=== PATIENT | male | born 1995 | race Caucasian/White ===

== ENCOUNTER 2018-01-02 05:55 | Emergency (ER) | payer OTHER, SELFPAY ==
[2018-01-02 05:57] VITALS: BP 150/80; PULSE 66; RESP 16; TEMP 36.6; O2SAT 100
--- NOTE | 2018-01-02 06:24 | ED.VIS.GEN ---
History of Present Illness Chief Complaint: Laceration Informant: Patient Onset: Hours - 1 Context: Sudden Onset - Work related Timing: Continuous Quality: Sore Location: Left wrist Current Severity: Mild Maximum Severity: Mild Worsened by: Nothing Relieved by: Nothing Associated Symptoms: None Narrative: States he was putting the lid on a kiln at work, it broke and a piece of it came down and cut him in the left wrist. Right-hand dominant. Last tetanus unknown, he thinks more than 10 years. Past Medical History - Allergies and Home Meds Allergies/Adverse Reactions: Allergies No Known Allergies Allergy (Verified 01/02/18 06:07) Past Medical History: None Smoking Status: Never smoker Drugs: None Review of Systems All systems negative except as indicated Musculoskeletal: Reports: Extremity Pain Skin: Reports: Wounds Neurological: Denies: Headache, Weakness, Parasthesia, Numbness Physical Exam Vital Signs/Narrative: Vital Signs Temp Pulse Resp BP Pulse Ox 01/02/18 05:57 97.8 F 66 16 150/80 H 100 Inital Vital Signs reviewed: Yes General: Well nourished, Well developed, - - nad Head: Normocephalic, Atraumatic Extremities: Nontender, No edema, - - Full range of motion left wrist, all finger joints including FDS, FDP of all digits Skin: Normal color, Trauma - 3 cm full-thickness laceration vulvar left wrist. No tendons seen. Linear and clean-appearing. Neurological: Alert, Oriented x3, Cranial nerves II-XII grossly intact, Normal Strength, Normal Sensation, Normal Gait Psychological: Normal affect Diagnostic/Tx/Re-eval - Medical Decision Making Sutured w/o difficulty. Tetanus updated w/ Adacel. Procedures - Lacerations left forearm Length: 3 cm Depth: Sub Q Shape: Linear Prep: Sterile Conditions, Chlorhexadine Laceration repair: Lidocaine - 3cc, 1% plain, Local, Skin sutures Number of Sutures/Maureen: 3 Suture Information: Ethilon, Horizontal, Mattress, 4-0 ED Disposition - Plan for ED Patient: Disposition: Home or Assisted Living Chief Complaint: Laceration Diagnosis: Laceration of left forearm Instructions: ED Laceration All Referrals: [facility]YSICIANS] - (7-10 days for suture removal)
[2018-01-02] MEDS: Diphth,Pertuss(Acell),Tet Vac 0.5 ML Vial IM (06:37)
== END 2018-01-02 07:48 | disposition home or self-care (01) ==
PROVIDERS: Emergency Provider Emergency Medicine
DX: S61.512A Laceration without foreign body of left wrist, initial encounter (principal); W26.8XXA Contact with other sharp object(s), not elsewhere classified, initial encounter; Y93.9 Activity, unspecified; Y92.9 Unspecified place or not applicable
CPT/HCPCS: 12002; 90471; 90715; 99282

== ENCOUNTER 2019-06-01 01:47 | Inpatient (IN) | payer MEDICAID, SELFPAY ==
[2019-06-01] VITALS (8 sets, daily range): BP systolic 110–155; BP diastolic 66–86; PULSE 64–111; RESP 14–68; TEMP 36.4–38.1; O2SAT 88–100; BMI 19.3; BMI 20.2
--- NOTE | 2019-06-01 02:02 | US_ITS ---
Scrotal ultrasound. CLINICAL HISTORY: Pain and swelling. PROCEDURE: Multiple images are presented. FINDINGS: RIGHT HEMISCROTUM: The testis is normal in size and echotexture. It measures 5.5 x 3.1 x 3.0 cm. It demonstrates normal vascular flow. The right epididymis is normal and measures 1.0 x 1.6 x 1.2 cm. And also demonstrates normal vascularity but has a small 9 x 8 x 10 mm epididymal cyst. There is no right-sided varicocele or hydrocele. LEFT HEMISCROTUM: The testis is normal in size and echotexture. It measures 5.8 x 4.7 x 3.7 cm. It shows normal vascularity. The epididymis is enlarged and shows increased vascularity. A measures 3.6 x 3.2 x 3.4 cm. There is a small hydrocele formation but no varicocele. IMPRESSION: A left-sided epididymitis. Electronically Signed: Kevin Brand MD at 5:19 EST Tel , Service support , US/Testicular with Arterial Flow
--- NOTE | 2019-06-01 02:02 | ED.VIS.GEN ---
History of Present Illness Chief Complaint: Male Pain/Injury Informant: Patient Narrative: Patient stated for the last 48 hours has had left testicular pain and swelling. He had this remotely a year ago. It went away on its own. He was seen and evaluated at that time. He did not get a ultrasound. He was given an unknown pill at home to take. He is been using Motrin for this pain. Denies any pain in the other testicle. He has never had sex before. No history of STD. Current severity is moderate. Denies any urinary symptoms. Denies any other medical problems. Past Medical History - Allergies and Home Meds Allergies/Adverse Reactions: Allergies No Known Allergies Allergy (Verified 01/02/18 06:07) Primary Care Physician: [facility],Out of [NON-STAFF] - Prior records reviewed: Yes Past Medical History: None Surgical History: no surgical history Lives: With Family Smoking Status: Never smoker Alcohol: None Drugs: None Review of Systems General: Denies: Chills, Fever, Sweats Eyes: Denies: Visual changes - bilaterally, Diplopia ENT: Denies: Rhinorrhea, Sore throat Cardiovascular: Denies: Chest pain, Palpitations Respiratory: Denies: Dyspnea, Cough, Dyspnea on exertion Gastrointestinal: Denies: Abdominal pain, Nausea, Vomiting, Diarrhea, Melena, Hematochezia Genitourinary: Reports: - - Left testicle pain and swelling. Denies: Dysuria, Hematuria, Frequency Musculoskeletal: Denies: Back pain, Extremity Pain Skin: Denies: Rash, Wounds Neurological: Denies: Headache, Weakness, Numbness Physical Exam Vital Signs/Narrative: Vital Signs Temp Pulse Resp BP 06/01/19 01:48 99.3 F H 64 18 154/83 H General: Well nourished, Well developed, No Acute Distress Head: Normocephalic, Atraumatic Eyes: Perrl, EOMI ENT: Moist mucous membranes, No rhinorrhea Neck: Supple, Nontender Cardiovascular: Regular rate, Regular rhythm, No murmurs Respiratory: No distress, CTA bilaterally, Chest nontender Abdomen: Soft, Nontender, Nondistended, Normal bowel sounds : - - Right testicle and scrotum normal. Penis normal. Left testicle is significantly enlarged. It is the size of a baseball. Significant tenderness to moving the testicle. There is no evidence of infection. No hernia. Normal lie of the testicle. It is not high riding. Back: Nontender, Normal Inspection Extremities: Nontender, No edema Skin: Normal color, No rash Neurological: Alert, Oriented x3, Cranial nerves II-XII grossly intact, Normal Strength, Normal Sensation Psychological: Normal affect, Normal Mood Diagnostic/Tx/Re-eval - Medical Decision Making Patient given IV morphine. Lab work obtained. Stat testicular ultrasound obtained. Lab work shows a leukocytosis of 11.6. Renal function unremarkable. Urinalysis shows no bacteria in his urine. Ultrasound shows a left-sided epididymitis. Normal flow noted. Patient had multiple episodes of nausea and vomiting. Given Zofran and Phenergan. Given Dilaudid also for intractable pain. Patient is adamant he is never had sex. I did send a gonorrhea and chlamydia test just in case. Patient will be given IV antibiotics. We will choose ceftriaxone and doxycycline to cover for gonorrhea and chlamydia as well as E. coli and other urinary sources due to his intractable nausea and vomiting I feel he will need to be admitted. Discussed with the hospitalist ED Disposition - Plan for ED Patient: Disposition: Acute Care Hospital [facility] Diagnosis: Left epididymitis, Intractable nausea and vomiting
[2019-06-01] MEDS: Morphine 4 MG/ML Syringe IV ×2 (02:16→03:12)
[2019-06-01 02:23] LABS: Absolute Lymphocyte Count 0.43 X10^3/uL (0.83-4.51); Absolute Neutrophil Count 10.8 X10^3/uL (2.0-7.7); Basophil# 0.03 X10^3/uL; Basophil% 0.3 % (0-1); Eosinophil# 0.05 X10^3/uL; Eosinophils% 0.4 % (0-5); Hematocrit 41.3 % (40-54); Hemoglobin 14.3 g/dL (13.0-16.5); Lymphocyte # 0.43 X10^3/ul (4.0); Lymphocyte % 3.7 % (19-41); Mean Corp Hgb Conc 34.6 g/dL (32-36); Mean Corpuscular Hgb 28.3 pg (27.0-32.0); Mean Corpuscular Volume 81.8 fL (80-94); Mean Platelet Vol. 11.1 fl (6.2-12.0); Monocyte# 0.29 X10^3/uL; Monocyte% 2.5 % (0-10); NRBC Flagged by Analyzer 0 % (0-5); Neutrophil % 92.8 % (47-70); POSITIVE DIFFERENTIAL YES; Platelet Count 179 K/mm3 (150-450); RBC Distribution Width CV 12.2 % (11.6-14.6); RBC Distribution Width SD 36.3 fl (35.1-43.9); Red Blood Count 5.05 M/mm3 (4.6-6.2); White Blood Count 11.6 K/mm3 (4.4-11.0)
[2019-06-01 02:36] LABS: Differential Indicated SCAN CRITERIA MET
[2019-06-01 02:44] LABS: Anion Gap 6 (5-15); BUN 10 mg/dL (7-18); BUN/Creat Ratio 11.2 RATIO (10-20); Calcium,Total 8.9 mg/dL (8.5-10.1); Chloride 108 mmol/L (98-107); Creatinine, Serum 0.89 mg/dL (0.70-1.30); EST Glomerular Filtration Rate 110 mL/min (>60); Est Glom Filt Rate - Afr Amer 134 mL/min (>60); Estimated Creatinine Clearance 134.14 ml/min; Glucose 134 mg/dL (74-106); Potassium 3.6 mmol/L (3.5-5.1); Sodium Level 138 mmol/L (136-145)
[2019-06-01 02:53] LABS: Differential Comment SCANNED
[2019-06-01] MEDS: 0.9% Normal Saline 1,000 ML 1000 ML IV (03:12)
[2019-06-01] MEDS: HYDROmorphone 1 MG/ML Syringe IV ×4 (04:11→22:02)
[2019-06-01] MEDS: Ondansetron 4 MG/2 ML Vial IV ×3 (04:11→12:27)
[2019-06-01] MEDS: 0.9% Normal Saline 1,000 ML 999 ML IV (04:25)
[2019-06-01 04:29] LABS: Bacteria 0 SEEN /hpf (None Seen); Mucous, Urine 0 SEEN /hpf (<or=2+); Red Blood Cells-Urine 0 SEEN /hpf (0-5); Squamous Epithelial Cells - UA 0 SEEN /hpf (0-5)
[2019-06-01 04:39] LABS: Color, Urine Yellow (Yellow); Glucose, Dipstick Normal (Normal); Leukocyte Esterase-Dipstick 25 /ul (Negative); Nitrite-Dipstick Negative (Negative); Occult Blood-Urine Negative /ul (Negative); Protein-Dipstick 30 mg/dl (Negative); Urine Bilirubin Dipstick Negative (Negative); Urine Clarity Sl. Cloudy (Clear); Urine Urobilinogen 4 mg/dl (Normal)
[2019-06-01 04:46] LABS: Ketone-Dipstick 150 mg/dl (Negative)
[2019-06-01 04:48] LABS: Amorphous Sediment 1+; White Blood Cells 0-5 SEEN /hpf (0-5)
[2019-06-01] MEDS: HYDROmorphone 0.5 MG/0.5 ML SYRINGE IV (05:14)
[2019-06-01] MEDS: proMETHazine 25 MG/ML Syringe 6.25 MG IV (05:30)
--- NOTE | 2019-06-01 05:35 | HP.PCM_ITS ---
Problem List (1) Sepsis Status: Acute Qualifiers: Sepsis type: sepsis due to unspecified organism Sepsis acute organ dysfunction status: unspecified Qualified Code(s): A41.9 - Sepsis, unspecified organism (2) Intractable pain Status: Acute (3) Intractable nausea and vomiting Status: Acute (4) Left epididymitis Status: Acute History of Present Illness Date of Admission: 06/01/19 Chief Complaint: Testicular pain The patient is a 23 y/o M w/ no marked PMHx who presents to the [facility] ED on 06/01/19 with history of progressively worsening severe 10 out of 10 left testicular pain, edema starting evening with onset of fevers and chills in addition to poor appetite and eventual nausea and intractable emesis prompting ED presentation. Patient in the emergency room notes this is happened once prior remotely and that he was treated outpatient with oral antibiotics but did not recall the specific ones. He notes the pain is worse with any movement or any palpation of the testicle. He denies having ever had any sexual intercourse to both the ED physician and hospitalist physician. Work-up in the ED included T 99.3, heart rate 111, BP 155/83, respiratory rate 22, 100% on room air but did decrease to 88% on room air following narcotics with improvement to 99% on 3 L nasal cannula, CBC with WBC 11.6, hemoglobin 14.3, platelet 179 with left shift, BMP with chloride 108, glucose 134 otherwise not marked appearing, UA cloudy, specific gravity 1.010, protein 30, ketones 150, negative nitrite, leukocyte esterase 25, WBC 0-5 with no urine bacteria, pending chlamydia and gonorrhea PCR, testicular ultrasound with findings concerning for left-sided epididymitis. In the ED patient ministered Rocephin, doxycycline following discussion with ED physician and prior to this several series of Dilaudid, morphine as well as Zofran and Phenergan secondary to intractable pain and ongoing nausea. Past Medical History Allergies No Known Allergies Allergy (Verified 01/02/18 06:07) Home Medications: Ambulatory Orders Medication Instructions Recorded NK 06/01/19 Surgical History: - - Left lower extremity surgery with hardware. Psychiatric History: No pertinent psych hx Lives: Alone Smoking Status: Never smoker Alcohol: None Drugs: None - *Family History Maternal History Items: - - Patient denies any market maternal family history including heart disease, diabetes, cancer. Paternal History Items: Hypertension Review of Systems Constitutional: Reports: Anorexia, Chills, Fever, Malaise, Weakness, Fatigue. Denies: Weight Change HEENT: Denies: Head Aches, Sinus Congestion, Sinus Drainage Cardiovascular: Denies: Chest Pain, Palpitations Respiratory: Denies: Cough, Shortness of breath at rest, Sputum production Gastrointestinal: Reports: Nausea, Vomiting. Denies: Abdominal Pain Genitourinary: Reports: - - Scrotal pain, edema.. Denies: Dysuria Musculoskeletal: Denies: Joint Pain, Joint Tenderness Skin: Denies: Rash, Wounds Neurological: Denies: Numbness, Tingling, Focal weakness Psychiatric: Denies: Anxiety, Depression, Homicidal Ideations, Suicidal Ideations Hematologic/ Lymphatic: Denies: Easy Bruising, Easy Bleeding VTE Information - Inpt Only VTE Present on Admission: No VTE Mechan Device Prophylaxis: None VTE Pharm Prophylaxis ordered?: No Reason prophylaxis not ordered:: Treatment Not Indicated Patient Problems: Active and Suspected Problems Left epididymitis (Acute) Intractable nausea and vomiting (Acute) Sepsis (Acute) Intractable pain (Acute) Subjective: Laying in the ED bed, uncomfortable appearing, fatigue, recent notable narcotic administration. Objective: Physical Examination: General: awakens stimuli but very fatigued, intermittently alert, oriented x 3 and cooperative, seated upright in the ED bed, fatigued appearing, pain mildly improved but discomfort with any palpation of the region. Skin: normal color, turgor, no icterus, cyanosis. HEENT: AT/NC, EOMI, PERRLA, dry MM, no carotid bruits or JVD noted. Lungs: CTA bilaterally, moderate effort, moderate decrease BL bases, no rales, ronchi or wheezing. Heart: Mildly tachycardic with regular rhythm; no gallop, rub audible. Abdomen: soft, thin habitus, NTTP, ND, normal BS, no HSM. : Notable scrotal edema, no evidence of erythema but left testicle more firm and edematous to palpation, tender to palpation. Extremities: no cyanosis, clubbing, or edema. Neurological: awakens stimuli but very fatigued, intermittently alert, oriented x 3 and cooperative; cognitive function decreased given sedative recent regimen, not baseline intact; pupils equally reactive to light and accomodation; cranial nerves II-XII grossly normal, moving all 4 extremities, no focal deficits, strength severely global decrease secondary to acute presentation. Psychiatric: affect appears fatigued, no acute evidence of depressive or anxiety feelings. - Physical Exam Vitals/I&O's: Vital Signs Temp Pulse Resp BP Pulse Ox 99.3 F H 111 H 68 H 155/86 H 99 06/01/19 01:48 06/01/19 04:00 06/01/19 05:21 06/01/19 04:00 06/01/19 05:21 Oxygen Flow Rate (L/min) 3 Oxygen Delivery Method Nasal Cannula Weight: 163 lb 5.8 oz Body Mass Index (BMI) 19.3 Intake and Output for Last 24 Hours 05/30/19 05/31/19 06/01/19 23:59 23:59 23:59 Intake Total 1000 / 1000 Balance 1000 / 1000 Laboratory Results 06/01/19 02:15: WBC 11.6 H, RBC 5.05, Hgb 14.3, Hct 41.3, MCV 81.8, MCH 28.3, MCHC 34.6, RDW Std Deviation 36.3, RDW Coeff of Kenji 12.2, Plt Count 179, MPV 11.1, Immature Gran % (Auto) 0.300, Neut % (Auto) 92.8 H, Lymph % (Auto) 3.7 L, Charles % (Auto) 2.5, Eos % (Auto) 0.4, Baso % (Auto) 0.3, Absolute Neuts (auto) 10.8 H, Absolute Lymphs (auto) 0.43 L, Nucleated RBC % 0, Differential Comment SCANNED 06/01/19 02:15: Sodium 138, Potassium 3.6, Chloride 108 H, Carbon Dioxide 24.0, Anion Gap 6, BUN 10, Creatinine 0.89, Estim Creat Clear Calc 134.14, Est GFR (MDRD) Af Amer 134, Est GFR (MDRD) Non-Af 110, BUN/Creatinine Ratio 11.2, Glucose 134 H, Calcium 8.9 06/01/19 04:20: Urine Color Yellow, Urine Clarity Sl. Cloudy, Urine pH 7.0, Ur Specific [place] 1.010, Urine Protein 30 H, Urine Glucose (UA) Normal, Urine Ketones 150 H, Urine Occult Blood Negative, Urine Nitrite Negative, Urine Bilirubin Negative, Urine Urobilinogen 4 H, Ur Leukocyte Esterase 25 H, Urine RBC 0 SEEN, Urine WBC 0-5 SEEN, Ur Squamous Epith Cells 0 SEEN, Amorphous Sediment 1+, Urine Bacteria 0 SEEN, Urine Mucus 0 SEEN 06/01/19 04:20: Chlam trachomat DNA PCR Pending, N.gonorrhoeae DNA (PCR) Pending Current Medications Ceftriaxone Sodium (Rocephin) 1 gm in 50 mls @ 100 mls/hr IV X1 ONE Stop: 06/01/19 06:00 Doxycycline Hyclate 100 mg/ (Dextrose) 260 mls @ 250 mls/hr IV X1 ONE Stop: 06/01/19 06:33 Assessment/Plan All Active Problems Left epididymitis (Acute) Intractable nausea and vomiting (Acute) Sepsis (Acute) Intractable pain (Acute) The patient is a 23 y/o M w/ no marked PMHx who presents to the [facility] ED on 06/01/19 with history of progressively worsening severe 10 out of 10 left testicular pain, edema starting evening with onset of fevers and chills in addition to poor appetite and eventual nausea and intractable emesis prompting ED presentation. 1. Acute Sepsis secondary to Acute left-sided epididymitis with intractable pain: Low-grade temperature upon presentation with tachycardia, elevated respiratory rate, mild WBC elevation with left shift noted. We will admit to medical surgical floor, maintain on IV Rocephin and doxycycline pending gonorrhea and Chlamydia testing as well as urine culture although UA not market appearing, will continue hydration, allow clears with advance diet as tolerated pending improvement of nausea, continue oral and IV narcotic pain regimen as well as scheduled IV Toradol x5 doses to assist with inflammation, elevate scrotum continuously, administer ice to the region. If pain continues to be intractable may necessitate transition to [facility]TEGR[facility] [employer]. 2. DVT prophylaxis: Low risk, ambulation once clinically improving. Code Visit Inpatient E&M: [id number] Init Hosp L2
[2019-06-01] MEDS: Ceftriaxone 1 GM/50 ML BAG IV (05:48)
--- NOTE | 2019-06-01 05:53 | ED.RN ---
TESTICLES ELEVATED WITH A TOWEL AND A ICEPACK.
--- NOTE | 2019-06-01 05:54 | ED.RN ---
ROCEPHIN STARTED IN THE ER, VIBRAMYCIN NOT STARTED SENT TO THE FLOOR WITH THE PT.
[2019-06-01 06:07] LABS: Chlamydia Trachomatis by PCR Negative (Negative); Neisserai gonorrhoeae by PCR Negative (Negative); Probe Check PASS; Sample Adequacy Control PASS; Specimen Processing Control PASS
[2019-06-01] MEDS: Ketorolac 30 MG/ML Syringe IV ×3 (06:45→21:56)
[2019-06-01] MEDS: 0.9% Normal Saline 1,000 ML 125 ML IV ×2 (08:29→16:16)
[2019-06-01] MEDS: 0.9% Saline Lock 10 ML Syringe IV ×4 (08:29→14:40)
[2019-06-01] MEDS: oxyCODONE 5 MG Tablet 10 MG PO ×3 (12:17→20:00)
--- NOTE | 2019-06-01 13:22 | NURSING ---
prn oxycodone given out of pain range per verbal orders to see if pain will be controlled w/oral meds
--- NOTE | 2019-06-01 16:59 | PCM.HOSP.N ---
Hospitalist Note Patient was seen and examined briefly today, he is continuing to complain of left testicular discomfort and has requiring narcotics for pain. I stop the patient's Rocephin-I do not think is necessary to continue Rocephin past 1 dose. I have left the patient on IV Vibramycin. I will reevaluate the patient tomorrow.
[2019-06-01] MEDS: Acetaminophen 325 MG Tablet 650 MG PO (22:02)
--- NOTE | 2019-06-01 22:24 | US_ITS ---
STUDY: SCROTUM ULTRASOUND REASON FOR EXAM: Male, 23 years old. LEFT TESTICULAR AND GROIN PAIN, LAST NIGHT PAIN WENT TO SPINE TECHNIQUE: Ultrasound evaluation of the scrotum was performed with color Doppler and static villar-scale imaging. COMPARISON: None. FINDINGS: RIGHT TESTICLE INTRATESTICULAR: There is a normal size of the right testicle. The right testicle measures 4.9 x 3.3 x 3.6 cm. There is a homogenous echotexture. There is normal arterial and normal venous vascularity. There is no demonstrated right testicular mass or cyst. EXTRATESTICULAR: The epididymis is normal in size. The epididymis head measures 1.5 cm. There is normal vascularity of the epididymis. There is 9 mm cystic structure. There is no demonstrated hydrocele. There is no demonstrated varicocele. There is no demonstrated extratesticular mass or cyst. LEFT TESTICLE INTRATESTICULAR: There is a normal size of the left testicle. The left testicle measures 5.8 x 3.8 x 3.5 cm. There is a heterogeneous echotexture. There is decreased arterial and decreased venous vascularity. There is no demonstrated left testicular mass or cyst. EXTRATESTICULAR: The epididymis is normal in size. The epididymis head measures 1.1 cm. There is increased (hyperemic) vascularity of the epididymis. There is no demonstrated epididymal cystic structure. There is no demonstrated hydrocele. There is no demonstrated varicocele. There is no demonstrated extratesticular mass or cyst. There is skin thickening in the scrotal wall suggesting edema US/Testicular with Arterial Flow IMPRESSION: There is heterogeneous echotexture of the left testicle may represent orchitis. There is hyperemia of the left epididymis suggesting epididymitis. There is skin thickening in the scrotal wall suggesting edema. Electronically Signed: Toshia Solares, at 2:49 EST Tel , Service support ,
[2019-06-02] VITALS (9 sets, daily range): BP systolic 99–126; BP diastolic 51–95; PULSE 91–125; RESP 16–18; TEMP 36.4–37.8; O2SAT 95–100; BMI 20.1
--- NOTE | 2019-06-02 00:41 | PCM.HOSP.N ---
Hospitalist Note Patient with ongoing pain to the L scrotal region with increased edema, feeling more firm than upon initial presentation. Given these concerns requested STAT repeat testicular US. Reviewed with angelique, pending radiology review with concern for L testicular torsion. Will immediately contact Dr. Posey, make patient NPO status, maintained already on IVFs.
--- NOTE | 2019-06-02 01:17 | CON.PCM_ITS ---
Reason for Consult Date of Consultation: 06/02/19 Reason for Consultation: Possible left testicular torsion History of Present Illness: The patient is a 23 year old male who started having more pain in the scrotum and left testicle about he said that suddenly on Monday the pain hit him really hard and he presented to the hospital. On admission ultrasound of the testicles was done and he had normal bilateral flow was read as epididymitis in the left side and the patient was admitted for pain management and antibiotic treatments. During the course of his stay more progressive swelling has developed repeat ultrasound was done and now he does have normal flow in the rig ht testicle but in the left testicle on ultrasound the testicle itself appears heterogeneous and no flow is apparent within the left testicle I reviewed the Doppler images myself and there is certainly a change between the original ultrasound and this ultrasound that does not demonstrate flow to the left testicle concerning for left torsion. On exam the patient is extremely swollen he is got edema in the scrotum got severe edema in the left side impossible to do an examination that determines whether the patient has torsion or not my only option at this point is to do immediate exploration I have called the surgical team in order to perform with scrotal exploration for possible torsion. Past Medical History Allergies No Known Allergies Allergy (Verified 01/02/18 06:07) Home Medications: Ambulatory Orders Medication Instructions Recorded NK 06/01/19 Surgical History: - - Left lower extremity surgery with hardware. Psychiatric History: No pertinent psych hx Lives: Alone Smoking Status: Never smoker Alcohol: None Drugs: None - *Family History Maternal History Items: - - Patient denies any market maternal family history including heart disease, diabetes, cancer. Paternal History Items: Hypertension Review of Systems Constitutional: Denies: Chills, Fever, Weight Change HEENT: Denies: Head Aches, Sinus Congestion, Sinus Drainage Cardiovascular: Denies: Chest Pain, Palpitations Respiratory: Denies: Cough, Shortness of breath at rest, Sputum production Gastrointestinal: Denies: Abdominal Pain, Nausea, Vomiting Genitourinary: Denies: Dysuria Musculoskeletal: Denies: Joint Pain, Joint Tenderness Skin: Denies: Rash, Wounds Neurological: Denies: Numbness, Tingling, Focal weakness Psychiatric: Denies: Anxiety, Depression, Homicidal Ideations, Suicidal Ideations Hematologic/ Lymphatic: Denies: Easy Bruising, Easy Bleeding Physical Exam - Physical Exam Vital Signs Temp 100.5 F H 06/01/19 20:08 Pulse 103 H 06/01/19 20:08 Resp 18 06/01/19 20:08 BP 113/66 06/01/19 20:08 Pulse Ox 99 06/01/19 20:08 Intake & Output 05/31/19 06/01/19 06/02/19 23:59 23:59 23:59 Intake Total 4549.17 / 4549.17 Output Total 500 / 500 250 / 250 Balance 4049.17 / 4049.17 -250 / -250 Weight: 71.3 kg Intake: Oral 300 / 300 Intake, IV Amount 4249.17 / 4249.17 0.9% Normal Saline 1,000 ML @ 1000 / 1000 1000 mls/hr IV .Q1H [facility] Rx#: [id number] 0.9% Normal Saline 1,000 ML @ 1679.17 / 1679.17 125 mls/hr IV .Q8H [facility] Rx#: [id number] 0.9% Normal Saline 1,000 ML @ 1000 / 1000 999 mls/hr IV .Q1H1M [facility] Rx#: [id number] Rocephin 1 gm In 50 ml @ 100 50 / 50 mls/hr IV X1 [facility] Rx#:[id number] Vibramycin 100 MG In Dextrose 5 260 / 260 % 250 ML @ 250 mls/hr IV Q12 [facility] Rx#:[id number] Vibramycin 100 MG In Dextrose 5 260 / 260 % 250 ML @ 250 mls/hr IV X1 [facility] Rx#:[id number] Output: Urine 500 / 500 250 / 250 General: Alert, Oriented x3 HEENT: Atraumatic Oral: Moist Mucosa Neck: Supple Lungs: Clear to auscultation Cardiovascular: Regular rate, Regular Rhythm Abdomen: Soft Rectal: Exam deferred - Testicles are both very swollen lots of edema lots of soft tissue swelling firm hard scrotum. Laboratory Tests Past 24 Hrs 06/01/19 06/01/19 06/01/19 02:15 02:15 04:20 WBC 11.6 H RBC 5.05 Hgb 14.3 Hct 41.3 MCV 81.8 MCH 28.3 MCHC 34.6 RDW Std Deviation 36.3 RDW Coeff of Kenji 12.2 Plt Count 179 MPV 11.1 Immature Gran % (Auto) 0.300 Neut % (Auto) 92.8 H Lymph % (Auto) 3.7 L Izard % (Auto) 2.5 Eos % (Auto) 0.4 Baso % (Auto) 0.3 Absolute Neuts (auto) 10.8 H Absolute Lymphs (auto) 0.43 L Nucleated RBC % 0 Differential Comment SCANNED Sodium 138 Potassium 3.6 Chloride 108 H Carbon Dioxide 24.0 Anion Gap 6 BUN 10 Creatinine 0.89 Estim Creat Clear Calc 134.14 Est GFR (MDRD) Af Amer 134 Est GFR (MDRD) Non-Af 110 BUN/Creatinine Ratio 11.2 Glucose 134 H Calcium 8.9 Urine Color Yellow Urine Clarity Sl. Cloudy Urine pH 7.0 Ur Specific Ballantine 1.010 Urine Protein 30 H Urine Glucose (UA) Normal Urine Ketones 150 H Urine Occult Blood Negative Urine Nitrite Negative Urine Bilirubin Negative Urine Urobilinogen 4 H Ur Leukocyte Esterase 25 H Urine RBC 0 SEEN Urine WBC 0-5 SEEN Ur Squamous Epith Cells 0 SEEN Amorphous Sediment 1+ Urine Bacteria 0 SEEN Urine Mucus 0 SEEN Chlam trachomat DNA PCR N.gonorrhoeae DNA (PCR) 06/01/19 04:20 WBC RBC Hgb Hct MCV MCH MCHC RDW Std Deviation RDW Coeff of Kenji Plt Count MPV Immature Gran % (Auto) Neut % (Auto) Lymph % (Auto) Izard % (Auto) Eos % (Auto) Baso % (Auto) Absolute Neuts (auto) Absolute Lymphs (auto) Nucleated RBC % Differential Comment Sodium Potassium Chloride Carbon Dioxide Anion Gap BUN Creatinine Estim Creat Clear Calc Est GFR (MDRD) Af Amer Est GFR (MDRD) Non-Af BUN/Creatinine Ratio Glucose Calcium Urine Color Urine Clarity Urine pH Ur Specific Ballantine Urine Protein Urine Glucose (UA) Urine Ketones Urine Occult Blood Urine Nitrite Urine Bilirubin Urine Urobilinogen Ur Leukocyte Esterase Urine RBC Urine WBC Ur Squamous Epith Cells Amorphous Sediment Urine Bacteria Urine Mucus Chlam trachomat DNA PCR Negative N.gonorrhoeae DNA (PCR) Negative Assessment/Plan All Active Problems Left epididymitis (Acute) Intractable nausea and vomiting (Acute) Sepsis (Acute) Intractable pain (Acute) 23-year-old male who presented with what appeared to be left epididymitis was treated with antibiotics repeat ultrasound was done there is definitely a change in flow to the left testicle but now may be concerning for torsion prior ultrasound demonstrated normal flow to the left testicle. Patient can be taken to the operating room immediately the surgical team is already been called in and possible he may need to have the left testicle removed if found to be ne crotic or if torsion will do detorsion and stabilization of the testicles. Patient n.p.o. will go surgery now.
[2019-06-02] MEDS: 0.9% Normal Saline 1,000 ML 125 ML IV ×4 (01:34→19:22)
--- NOTE | 2019-06-02 02:00 | MISC_PTH ---
PATIENT: DAVID MOJICA LOC: MS3 U#:[id number] AGE/SX: 23/M [place] [facility] [place]: Dr. Lázaro De Leon DO : 1995 BED: 1 DIS: 06/04/2019 SPEC #: [id number] RECD: 06/03/19 09:20 STATUS: DESHAUN REKimberly #: [id number] DANNY: 06/02/19 02:[address]: Pelon Posey DEPT: SURGICAL PATHOLOGY RECD BY: James Kelley ENTERED: 06/03/19 13:15 SP TYPE: MISC OTHR DR: MD Dr. Lázaro Mike DO Dr. Juan Miguel Proano, MD No Primary Care Phys Tissues: Scrotum, NOS Procedures: Surgery Specimen Level IV Comments: @ Ordering doctor for SUIV edited from to @ by MAYI at 06/03/19 1524 @ Submitting doctor edited from to @ by RGOOD at 06/03/19 1524 HEADER OPERATION: Testicular torsion PRE-OP DIAGNOSIS: Left epididymitis; intractable nausea and vomiting; sepsis, intractable pain TISSUE SUBMITTED: Necrotic scrotum MICROSCOPIC DIAGNOSIS Necrotic scrotum: Testes, epididymis and paratesticular tissue with extensive acute inflammation, hemorrhage and abscess formation. MARTY:yash 06/05/19 MICROSCOPIC DESCRIPTION Slides are reviewed. GROSS DESCRIPTION The specimen consists of testes and attached membranes. The specimen measures 9 x 6 x 3.5 cm and weighs 85 gm. The testes measures 5.6 x 3.5 x 3 cm. Serial sections reveal homogenous cut surfaces without areas of cyst formation, obvious necrosis or hemorrhage. The vas deferens is grossly unremarkable. The soft tissue margin of resection is grossly unremarkable. Serial sections of the testes do not reveal a space-occupying lesion. The caput epididymis is identified; however, the caudate epididymis is not distinct. Mfts sections are submitted as follows: 1 - soft tissue margin of resection, 2 - testes, 3 - testes with adjacent uninvolved soft tissue, 4 - caput epididymis, 5-8 - testicular soft tissue. / AM:yash 06/04/19 TC:2 CPT: 47852
[2019-06-02] MEDS: Bupivacaine Mpf 0.5% 30 ML VIAL (03:00)
--- NOTE | 2019-06-02 03:07 | OP.PCM_ITS ---
Report of Operation Date of Procedure: 06/02/19 Pre-Operative Diagnosis: Suspected torsion of the left testicle left epidi dymitis severe Post-Operative Diagnosis: Thrombosis of the left testicle and left epididymitis severe Surgery/Procedure Performed:: Scrotal exploration left orchiectomy for thrombosed testicle and right orchiopexy Description of Surgical Findings:: 23-year-old male presented to the hospital about 24 hours ago with suspected severe epididymitis was started on broad-spectrum antibiotics while in the hospital stay despite broad-spectrum antibiotics his pain worsened original ultrasound demonstrated epididymitis with normal flow to both testicles follow- up ultrasound demonstrated no flow to the left testicle and suspected torsion. Because of this spoke to the patient regarding situation and exam he is got a very swollen testicle impossible to tell if he has torsion or not recommend a scrotal expiration and he understands possible I may have to remove the left testicle if it is found to be necrotic and we will also perform a right orchiopexy. 23-year-old male was taken back to the operating room at the smooth induction of general anesthesia he was placed supine on the table the scrotum was shaved prepped and draped in usual sterile fashion he had a very swollen edematous scrotum had a lot of redness and erythema on the left side of the scrotum a lot of swelling and edema and the entire scrotum itself. I infiltrated the midline raphae with Marcaine I then made an incision into the scrotal skin have very edematous scrotal skin dissected down immediately to the left testicle encountered a hydrocele opened up the hydrocele hydrocele popped out fluid and then very dense tough edematous tissue all the way around the testicle then delivered the testicle inspected the testicular cord there is no torsion along the cord but the testicle itself was completely blue and thrombosed the epididymis was engorged and the tail of the epididymis was all necrotic and with exudate and whitish puslike material cultures were done. There was no torsion of the testicle but appeared to be a thrombosis of the testicle secondary to the infection and it was not a viable looking testicle, and the testicle looked comp letely unhealthy necrotic and nonviable. I went to the right side open up the tunica albuginea in the right side he had a normal right testicle normal epididymis we performed an orchiopexy using 3 Ethibond which is permanent braided soft suture we the three-point fixation of the right testicle and then stitches testicle into the right hemiscrotum to prevent torsion of this testicle. I then went to the left side inspected again again this was a nonviable thrombosed necrotic testicle with exudate therefore I did this decision to proceed with an orchiectomy given that the testicle did not appear salvageable. And also given the past testicle there was no torsion just spontaneous thrombosis secondary most likely to the severe infection. Therefore I took the cord with hemostats in several small pieces and then the testicle was cut out there was thrombosis along the cord I then tied off each of the ligating each of the small vessels with silk stitches after the cord was ligated inspected the cord there was no sign of bleeding and irrigated out the left hemiscrotum obtain hemostasis in the incision line and then closed the first layer with 3-0 chromic running suture and then closed the second layer with imbricated 3-0 chromic continuous suture on the scrotal skin patient anesthetic was reversed taken back to PACU in good condition. Type of Anesthesia:: General - Admit VTE Documentation VTE Present on Admission: No VTE Mechan Device Prophylaxis: SCD's
[2019-06-02] MEDS: Ketorolac 30 MG/ML Syringe IV ×2 (06:04→14:18)
[2019-06-02 07:01] LABS: Hematocrit 34.8 % (40-54); Hemoglobin 11.4 g/dL (13.0-16.5); Mean Corp Hgb Conc 32.8 g/dL (32-36); Mean Corpuscular Hgb 27.7 pg (27.0-32.0); Mean Corpuscular Volume 84.5 fL (80-94); Mean Platelet Vol. 11.8 fl (6.2-12.0); POSITIVE COUNT YES; POSITIVE DIFFERENTIAL YES; POSITIVE MORPHOLOGY YES; Platelet Count 175 K/mm3 (150-450); RBC Distribution Width CV 13.2 % (11.6-14.6); RBC Distribution Width SD 40.6 fl (35.1-43.9); Red Blood Count 4.12 M/mm3 (4.6-6.2); White Blood Count 18.9 K/mm3 (4.4-11.0)
[2019-06-02 07:12] LABS: Anion Gap 7 (5-15); BUN 16 mg/dL (7-18); BUN/Creat Ratio 16.1 RATIO (10-20); Calcium,Total 7.6 mg/dL (8.5-10.1); Chloride 106 mmol/L (98-107); Creatinine, Serum 0.99 mg/dL (0.70-1.30); EST Glomerular Filtration Rate 98 mL/min (>60); Est Glom Filt Rate - Afr Amer 118 mL/min (>60); Estimated Creatinine Clearance 116.03 ml/min; Glucose 93 mg/dL (74-106); Sodium Level 137 mmol/L (136-145)
[2019-06-02 07:38] LABS: Differential Indicated MANUAL DIFF
[2019-06-02 07:54] LABS: Lymphocyte 1 % (19-41); Metamyelocyte 1 % (0-1); Monocyte 4 % (0-10); Neutrophil-Band 10 % (0-5); Neutrophil-Segmented 84 % (47-70); Platelet Estimate ADEQUATE (ADEQ); Red Cell Morphology NORM C+C NORMAL (NORM C&C); Total Cells Counted 100 (MANUAL DIFF)
[2019-06-02 07:56] LABS: Absolute Lymphocyte Count 0.19 X10^3/uL (0.83-4.51); Absolute Neutrophil Count 17.8 X10^3/uL (2.0-7.7)
[2019-06-02] MEDS: oxyCODONE 5 MG Tablet 10 MG PO ×2 (08:14→20:06)
[2019-06-02] MEDS: levoFLOXacin 750 MG Tablet PO (10:10)
--- NOTE | 2019-06-02 11:08 | CPS ---
incentive started by nursing
--- NOTE | 2019-06-02 17:40 | PN_ITS ---
Patient Problems: Active and Suspected Problems Left epididymitis (Acute) Intractable nausea and vomiting (Acute) Sepsis (Acute) Intractable pain (Acute) Subjective: Patient was seen and examined today, he required surgery earlier this morning for a left orchiectomy. Patient had a thrombosis and necrosis of the left testicle. I explained this to the patient today as well as his father who is in the room during the time of my examination. Patient's pain is much better today. - Physical Exam Vitals/I&O's: Vital Signs Temp Pulse Resp BP Pulse Ox 98.1 F 94 16 119/72 100 06/02/19 14:15 06/02/19 14:15 06/02/19 14:15 06/02/19 14:15 06/02/19 14:15 Oxygen Flow Rate (L/min) 2 Oxygen Delivery Method Room Air Weight: 71.3 kg Body Mass Index (BMI) 20.1 Intake and Output for Last 24 Hours 05/31/19 06/01/19 06/02/19 23:59 23:59 23:59 Intake Total 4549.17 / 4549.17 2905.83 / 2905.83 Output Total 500 / 500 600 / 600 Balance 4049.17 / 4049.17 2305.83 / 2305.83 General: Alert, Oriented x3, Cooperative, No apparent distress, Well developed HEENT: Atraumatic, PERRLA, EOMI, Normocephalic Oral: Moist Mucosa Neck: Supple, Trachea Midline, Thyroid Normal Size and Texture Lungs: Clear to auscultation, Normal air movement, No rhonchi, No wheeze, No rales Cardiovascular: Regular rate, Regular Rhythm, Normal S1, Normal S2, No murmurs, PMI Normal Abdomen: Bowel Sounds Present, Soft, Non Tender, Non-Distended Extremities: No clubbing, No cyanosis, No edema, Capillary Refill Less than 3 Seconds Skin: No rashes, No breakdown Musculoskeletal: No Tenderness to Palpation of Joints or Extremities Neurological: Cranial nerves II-XII grossly intact, Neuro grossly intact, Sensory exam intact to light touch and pain Psych/Mental Status: Normal Affect, Appropriate, Alert and oriented to time, place, person, mood and affect Microbiology Past 72 Hours 06/02/19 03:00 Wound Abcess - Other Gram Stain - Final 06/01/19 04:20 Urine, Clean Catch Urine Culture - Preliminary Culture exhibits no growth. Laboratory Results 06/02/19 05:14: WBC 18.9 H, RBC 4.12 L, Hgb 11.4 L, Hct 34.8 L, MCV 84.5, MCH 27.7, MCHC 32.8, RDW Std Deviation 40.6, RDW Coeff of Kenji 13.2, Plt Count 175, MPV 11.8, Neut % (Auto) Not Reportable, Absolute Neuts (auto) 17.8 H, Absolute Lymphs (auto) 0.19 L, Total Counted 100, Neutrophils % (Manual) 84 H, Band Neutrophils % 10 H, Lymphocytes % (Manual) 1 L, Monocytes % (Manual) 4, Metamyelocytes % 1, Diff Path Review September, Platelet Estimate ADEQUATE, RBC Morphology NORM C+C 06/02/19 05:14: Sodium 137, Potassium 4.0, Chloride 106, Carbon Dioxide 24.0, Anion Gap 7, BUN 16, Creatinine 0.99, Estim Creat Clear Calc 116.03, Est GFR (MDRD) Af Amer 118, Est GFR (MDRD) Non-Af 98, BUN/Creatinine Ratio 16.1, Glucose 93, Calcium 7.6 L Current Medications Acetaminophen (Tylenol) 650 mg PO Q4H PRN PRN PRN Reason: Pain Score 1-3/Temp > 100.7 F Last Admin: 06/01/19 22:02 Dose: 650 mg Documented by: Hydromorphone HCl (Dilaudid Inj) 1 mg IV Q4H PRN PRN PRN Reason: Pain Score 6-10/10 Last Admin: 06/01/19 22:02 Dose: 1 mg Documented by: Doxycycline Hyclate 100 mg/ (Dextrose) 260 mls @ 250 mls/hr IV Q12 [facility] Last Infusion: 06/02/19 11:13 Dose: Infused Documented by: Sodium Chloride () 1,000 mls @ 125 mls/hr IV .Q8H [facility] Last Infusion: 06/02/19 11:13 Dose: 125 mls/hr Documented by: Sodium Chloride () 250 mls @ 15 mls/hr IV .[id number] PRN PRN Reason: Saline Flush Sodium Chloride () 250 mls @ 15 mls/hr IV .[id number] PRN PRN Reason: Additional IVPB Infusion Levofloxacin (Levaquin Tablet) 750 mg PO DAILY@0600 [facility] Ondansetron HCl (Zofran) 4 mg IV Q8H PRN PRN PRN Reason: NAUSEA/VOMITING Last Admin: 06/01/19 12:27 Dose: 4 mg Documented by: Oxycodone HCl (Oxyir) 10 mg PO Q4H PRN PRN PRN Reason: Pain Score 4-5/10 Last Admin: 06/02/19 08:14 Dose: 10 mg Documented by: Sodium Chloride () 10 - 40 ml IV UD PRN PRN Reason: SALINE FLUSH Last Admin: 06/01/19 14:40 Dose: 10 ml Documented by: Medical Necessity - Tobacco Use Smoking Status: Never smoker Assessment/Plan All Active Problems Left epididymitis (Acute) Intractable nausea and vomiting (Acute) Sepsis (Acute) Intractable pain (Acute) #1 thrombosis of the left testicle and left epididymitis-status post left orchiectomy and right orchiopexy-patient appears more comfortable today, I will stop the patient's doxycycline, I placed the patient on oral Levaquin today. Patient will be reevaluated tomorrow for possible discharge home and follow-up w [facility] urology. Code Visit Inpatient E&M: 20841 Subs Hosp L2
[2019-06-02] MEDS: HYDROmorphone 1 MG/ML Syringe IV ×2 (17:46→22:26)
[2019-06-02] MEDS: Ondansetron 4 MG/2 ML Vial IV (17:46)
[2019-06-02] MEDS: proMETHazine 25 MG/ML Syringe 12.5 MG IV (22:21)
[2019-06-03] MEDS: 0.9% Normal Saline 1,000 ML 125 ML IV ×2 (02:13→09:56)
[2019-06-03 02:14] VITALS: BP 119/76; PULSE 84; RESP 16; TEMP 37.2; O2SAT 97
[2019-06-03] MEDS: Ondansetron 4 MG/2 ML Vial IV (05:53)
[2019-06-03] MEDS: levoFLOXacin 750 MG Tablet PO (06:48)
[2019-06-03] MEDS: Acetaminophen 325 MG Tablet 650 MG PO ×2 (06:48→20:05)
[2019-06-03 06:49] LABS: Absolute Neutrophil Count 17.9 X10^3/uL (2.0-7.7); Basophil# 0.05 X10^3/uL; Basophil% 0.3 % (0-1); Eosinophil# 0.04 X10^3/uL; Eosinophils% 0.2 % (0-5); Hematocrit 33.2 % (40-54); Hemoglobin 11.2 g/dL (13.0-16.5); Lymphocyte % 3.1 % (19-41); Mean Corp Hgb Conc 33.7 g/dL (32-36); Mean Corpuscular Hgb 28.5 pg (27.0-32.0); Mean Corpuscular Volume 84.5 fL (80-94); Mean Platelet Vol. 11.5 fl (6.2-12.0); Monocyte# 0.77 X10^3/uL; Monocyte% 3.9 % (0-10); NRBC Flagged by Analyzer 0 % (0-5); Neutrophil # 17.88 X10^3/uL (2.7-7.7); Neutrophil % 91.2 % (47-70); POSITIVE DIFFERENTIAL YES; POSITIVE MORPHOLOGY YES; Platelet Count 202 K/mm3 (150-450); RBC Distribution Width CV 12.9 % (11.6-14.6); RBC Distribution Width SD 39.7 fl (35.1-43.9); Red Blood Count 3.93 M/mm3 (4.6-6.2); White Blood Count 19.6 K/mm3 (4.4-11.0)
[2019-06-03 07:18] LABS: Differential Indicated SCAN CRITERIA MET
[2019-06-03 07:21] LABS: Differential Comment SCANNED
--- NOTE | 2019-06-03 07:32 | PCM.PROGNOTE ---
Patient Problems: Active and Suspected Problems Left epididymitis (Acute) Intractable nausea and vomiting (Acute) Sepsis (Acute) Intractable pain (Acute) Subjective: 23-year-old male who presented with severe left epididymoorchitis then developed severe pain on repeat ultrasound was found to have acute thrombosis of the left testicle was taken to surgery was found to have a necrotic nonviable testicle and required orchiectomy on the left side. He still healing from the procedure still says he has a lot of nausea has not been able to keep food down white count still elevated 19 cultures intraoperatively are still pending on examination the scrotum is reddened and edematous incision is clean and intact. He has been switched over to Levaquin from doxycycline. White count still elevated still not able to tolerate food. - Physical Exam Vitals/I&O's: Vital Signs Temp Pulse Resp BP Pulse Ox 99.0 F 84 16 119/76 97 06/03/19 02:14 06/03/19 02:14 06/03/19 02:14 06/03/19 02:14 06/03/19 02:14 Oxygen Flow Rate (L/min) 2 Oxygen Delivery Method Room Air Weight: 71.3 kg Body Mass Index (BMI) 20.1 Intake and Output for Last 24 Hours 06/01/19 06/02/19 06/03/19 23:59 23:59 23:59 Intake Total 4549.17 / 4549.17 4305.83 / 4305.83 856.25 / 856.25 Output Total 500 / 500 1200 / 1200 100 / 100 Balance 4049.17 / 4049.17 3105.83 / 3105.83 756.25 / 756.25 General: Alert, Oriented x3, Cooperative HEENT: Atraumatic, PERRLA, EOMI, Normocephalic Lungs: Normal air movement Abdomen: Soft, Non Tender Extremities: No clubbing, No cyanosis, No edema Psych/Mental Status: Normal Affect, Appropriate Comment: I examined nation of the scrotum the scrotum is swollen and edematous Microbiology Past 72 Hours 06/02/19 03:00 Wound Abcess - Other Gram Stain - Final 06/01/19 04:20 Urine, Clean Catch Urine Culture - Preliminary Culture exhibits no growth. Laboratory Results 06/02/19 05:14: WBC 18.9 H, RBC 4.12 L, Hgb 11.4 L, Hct 34.8 L, MCV 84.5, MCH 27.7, MCHC 32.8, RDW Std Deviation 40.6, RDW Coeff of Kenji 13.2, Plt Count 175, MPV 11.8, Neut % (Auto) Not Reportable, Absolute Neuts (auto) 17.8 H, Absolute Lymphs (auto) 0.19 L, Total Counted 100, Neutrophils % (Manual) 84 H, Band Neutrophils % 10 H, Lymphocytes % (Manual) 1 L, Monocytes % (Manual) 4, Metamyelocytes % 1, Diff Path Review September, Platelet Estimate ADEQUATE, RBC Morphology NORM C+C 06/03/19 06:08: WBC 19.6 H, RBC 3.93 L, Hgb 11.2 L, Hct 33.2 L, MCV 84.5, MCH 28.5, MCHC 33.7, RDW Std Deviation 39.7, RDW Coeff of Kenji 12.9, Plt Count 202, MPV 11.5, Immature Gran % (Auto) 1.300 H, Neut % (Auto) 91.2 H, Lymph % (Auto) 3.1 L, Baxter % (Auto) 3.9, Eos % (Auto) 0.2, Baso % (Auto) 0.3, Absolute Neuts (auto) 17.9 H, Absolute Lymphs (auto) 0.60 L, Nucleated RBC % 0, Differential Comment SCANNED Current Medications Acetaminophen (Tylenol) 650 mg PO Q4H PRN PRN PRN Reason: Pain Score 1-3/Temp > 100.7 F Last Admin: 06/03/19 06:48 Dose: 650 mg Documented by: Hydromorphone HCl (Dilaudid Inj) 0.5 mg IV Q4H PRN PRN PRN Reason: BREAKTHROUGH PAIN (>4/10) Sodium Chloride () 1,000 mls @ 125 mls/hr IV .Q8H [facility]BO Last Admin: 06/03/19 02:13 Dose: 125 mls/hr Documented by: Sodium Chloride () 250 mls @ 15 mls/hr IV .[id number] PRN PRN Reason: Saline Flush Sodium Chloride () 250 mls @ 15 mls/hr IV .[id number] PRN PRN Reason: Additional IVPB Infusion Levofloxacin (Levaquin Tablet) 750 mg PO DAILY@0600 [facility] Last Admin: 06/03/19 06:48 Dose: 750 mg Documented by: Ondansetron HCl (Zofran) 4 mg IV Q8H PRN PRN PRN Reason: NAUSEA/VOMITING Last Admin: 06/03/19 05:53 Dose: 4 mg Documented by: Oxycodone HCl (Oxyir) 5 mg PO Q4H PRN PRN PRN Reason: Pain Score 4-5/10 Oxycodone HCl (Oxyir) 10 mg PO Q4H PRN PRN PRN Reason: Pain Score 6-10/10 Promethazine HCl (Phenergan) 12.5 mg IV Q4H PRN PRN PRN Reason: NAUSEA/VOMITING Last Admin: 06/02/19 22:21 Dose: 12.5 mg Documented by: Sodium Chloride () 10 - 40 ml IV UD PRN PRN Reason: SALINE FLUSH Last Admin: 06/01/19 14:40 Dose: 10 ml Documented by: Temazepam (Restoril) 15 mg PO QHS PRN PRN PRN Reason: INSOMNIA Medical Necessity - Tobacco Use Smoking Status: Never smoker Assessment/Plan All Active Problems Left epididymitis (Acute) Intractable nausea and vomiting (Acute) Sepsis (Acute) Intractable pain (Acute) 23-year-old male presents to the hospital with severe left a bit of orchitis worsening pain was found to have thrombosis of the left testicle required an orchiectomy testicle was nonviable. Cultures at this point are pending he was on broad-spectrum antibiotics prior to surgery not sure of the cultures will grow anything with this he. White count still high at 19 he does not appear ready for discharge still not tolerating regular diet. After discharge he can follow-up with urology.
[2019-06-03 07:45] VITALS: O2SAT 97
[2019-06-03 08:26] VITALS: BP 130/66; PULSE 89; RESP 18; TEMP 37.2; O2SAT 95
[2019-06-03] MEDS: oxyCODONE 5 MG Tablet PO (09:58)
--- NOTE | 2019-06-03 10:33 | PN_ITS ---
Patient Problems: Active and Suspected Problems Left epididymitis (Acute) Intractable nausea and vomiting (Acute) Sepsis (Acute) Intractable pain (Acute) Reason for Visit: epididymitis Subjective: Feels better. So far, tolerating clear diet. Vitals/I&O's: Vital Signs Temp Pulse Resp BP Pulse Ox 37.2 C 89 18 130/66 H 95 06/03/19 08:26 06/03/19 08:26 06/03/19 08:26 06/03/19 08:26 06/03/19 08:26 Oxygen Flow Rate (L/min) 2 Oxygen Delivery Method Room Air Weight: 71.3 kg Body Mass Index (BMI) 20.1 Intake and Output for Last 24 Hours 06/01/19 06/02/19 06/03/19 23:59 23:59 23:59 Intake Total 4549.17 / 4549.17 4305.83 / 4305.83 1820.83 / 1820.83 Output Total 500 / 500 1200 / 1200 100 / 100 Balance 4049.17 / 4049.17 3105.83 / 3105.83 1720.83 / 1720.83 General: Alert, No apparent distress HEENT: Atraumatic, Normocephalic Oral: Moist Mucosa, No Gingival or Mucosal Lesions/ Ulcerations Neck: No Nodes, Trachea Midline Lungs: Clear to auscultation, Normal air movement, No rhonchi, No wheeze, No rales Cardiovascular: Regular rate, Regular Rhythm, Normal S1, Normal S2, No murmurs Abdomen: Bowel Sounds Present, Soft, Non Tender, Non-Distended, No Hepato- splenomegaly, - - Scrotum with slight erythema. Wound covered with guaze--did not remove. Extremities: No edema, No Calf Tenderness Skin: No rashes, No breakdown Neurological: Muscle tone normal, Gait narrow based and stable Psych/Mental Status: Appropriate, Flat Affect Microbiology Past 72 Hours 06/01/19 04:20 Urine, Clean Catch Urine Culture - Final Mixed Gram Positive Organisms 06/02/19 03:00 Wound Abcess - Other Gram Stain - Final Laboratory Results 06/03/19 06:08: WBC 19.6 H, RBC 3.93 L, Hgb 11.2 L, Hct 33.2 L, MCV 84.5, MCH 28.5, MCHC 33.7, RDW Std Deviation 39.7, RDW Coeff of Kenji 12.9, Plt Count 202, MPV 11.5, Immature Gran % (Auto) 1.300 H, Neut % (Auto) 91.2 H, Lymph % (Auto) 3.1 L, Tillman % (Auto) 3.9, Eos % (Auto) 0.2, Baso % (Auto) 0.3, Absolute Neuts (auto) 17.9 H, Absolute Lymphs (auto) 0.60 L, Nucleated RBC % 0, Differential Comment SCANNED Current Medications Acetaminophen (Tylenol) 650 mg PO Q4H PRN PRN PRN Reason: Pain Score 1-3/Temp > 100.7 F Last Admin: 06/03/19 06:48 Dose: 650 mg Documented by: Hydromorphone HCl (Dilaudid Inj) 0.5 mg IV Q4H PRN PRN PRN Reason: breakthrough pain (>4/10) Sodium Chloride () 1,000 mls @ 125 mls/hr IV .Q8H [facility] Last Admin: 06/03/19 09:56 Dose: 125 mls/hr Documented by: Sodium Chloride () 250 mls @ 15 mls/hr IV .[id number] PRN PRN Reason: Saline Flush Sodium Chloride () 250 mls @ 15 mls/hr IV .[id number] PRN PRN Reason: Additional IVPB Infusion Levofloxacin (Levaquin Tablet) 750 mg PO DAILY@0600 [facility] Last Admin: 06/03/19 06:48 Dose: 750 mg Documented by: Ondansetron HCl (Zofran) 4 mg IV Q8H PRN PRN PRN Reason: NAUSEA/VOMITING Last Admin: 06/03/19 05:53 Dose: 4 mg Documented by: Oxycodone HCl (Oxyir) 5 mg PO Q4H PRN PRN PRN Reason: Pain Score 4-5/10 Last Admin: 06/03/19 09:58 Dose: 5 mg Documented by: Oxycodone HCl (Oxyir) 10 mg PO Q4H PRN PRN PRN Reason: Pain Score 6-10/10 Promethazine HCl (Phenergan) 12.5 mg IV Q4H PRN PRN PRN Reason: NAUSEA/VOMITING Last Admin: 06/02/19 22:21 Dose: 12.5 mg Documented by: Sodium Chloride () 10 - 40 ml IV UD PRN PRN Reason: SALINE FLUSH Last Admin: 06/01/19 14:40 Dose: 10 ml Documented by: Temazepam (Restoril) 15 mg PO QHS PRN PRN PRN Reason: INSOMNIA STROKE Vital Signs/Narrative: Vital Signs Temp Pulse Resp BP Pulse Ox 06/03/19 08:26 37.2 C 89 18 130/66 H 95 06/03/19 07:45 97 Medical Necessity - Tobacco Use Smoking Status: Never smoker Assessment/Plan All Active Problems Left epididymitis (Acute) Intractable nausea and vomiting (Acute) Sepsis (Acute) Intractable pain (Acute) Assessemtn: 1. Sepsis 2/2 #2 2. 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 intractable nausea and vomiting--improving Plan: 1. Continue levofloxacin 2. follow up culture 3. already adjust pain control with IV hydromorphone to be used only for breakthrough pain 4. VTE prophylaxis with enoxaparin 5. advance diet, if tolerates. 6. DC hopefully in next 24-48h. Code Visit Inpatient E&M: 74474 Subs Hosp L2
--- NOTE | 2019-06-03 13:30 | CASEMGMT ---
RN CM attempted to complete RN CM Assessment at this time. Patient is sleeping, RN CM will attempt assessment at later time.
--- NOTE | 2019-06-03 13:44 | CASEMGMT ---
Addendum entered by Goldie Babin 06/03/19 15:53: Correction, pt was currently on phone when this worker attempted to meet with pt. Original Note: Social Work Note Pt is listed as self-pay. SW reviewed PFS notes. Per PFS notes, pt was provided HCAP application, pt denied self-pay incentive and pt was going to reach out to his recent employer to determine if he is able to get insurance. SW attempted to see pt but pt currently on floor. SW to remain available if financial concerns arise. Goldie Babin JEWEL GRINDER, TILE INSPECTOR
[2019-06-03 14:15] LABS: Pathologist Review Reviewed
[2019-06-03 16:06] VITALS: BP 141/82; PULSE 84; RESP 16; TEMP 37.2; O2SAT 100
[2019-06-03 19:59] VITALS: BP 141/73; PULSE 84; RESP 14; TEMP 37.6; O2SAT 98
[2019-06-04 02:06] VITALS: BP 138/74; PULSE 81; RESP 16; TEMP 37.1; O2SAT 98
[2019-06-04 05:53] LABS: Anion Gap 4 (5-15); BUN 12 mg/dL (7-18); BUN/Creat Ratio 14.3 RATIO (10-20); Calcium,Total 8.1 mg/dL (8.5-10.1); Chloride 110 mmol/L (98-107); Creatinine, Serum 0.84 mg/dL (0.70-1.30); EST Glomerular Filtration Rate 118 mL/min (>60); Est Glom Filt Rate - Afr Amer 143 mL/min (>60); Estimated Creatinine Clearance 136.75 ml/min; Glucose 104 mg/dL (74-106); Potassium 3.7 mmol/L (3.5-5.1); Sodium Level 142 mmol/L (136-145)
[2019-06-04 05:56] LABS: Absolute Lymphocyte Count 1.42 X10^3/uL (0.83-4.51); Absolute Neutrophil Count 10.4 X10^3/uL (2.0-7.7); Basophil# 0.03 X10^3/uL; Basophil% 0.2 % (0-1); Eosinophil# 0.19 X10^3/uL; Eosinophils% 1.5 % (0-5); Hematocrit 33.5 % (40-54); Hemoglobin 11.3 g/dL (13.0-16.5); Lymphocyte # 1.42 X10^3/ul (4.0); Lymphocyte % 11.1 % (19-41); Mean Corp Hgb Conc 33.7 g/dL (32-36); Mean Corpuscular Hgb 28.5 pg (27.0-32.0); Mean Corpuscular Volume 84.6 fL (80-94); Mean Platelet Vol. 11.3 fl (6.2-12.0); Monocyte% 6.2 % (0-10); NRBC Flagged by Analyzer 0 % (0-5); Neutrophil # 10.35 X10^3/uL (2.7-7.7); Neutrophil % 80.5 % (47-70); POSITIVE MORPHOLOGY YES; Platelet Count 220 K/mm3 (150-450); RBC Distribution Width CV 12.9 % (11.6-14.6); RBC Distribution Width SD 39.4 fl (35.1-43.9); Red Blood Count 3.96 M/mm3 (4.6-6.2); White Blood Count 12.9 K/mm3 (4.4-11.0)
[2019-06-04 06:04] LABS: Differential Indicated SCAN CRITERIA MET
[2019-06-04] MEDS: levoFLOXacin 750 MG Tablet PO (06:28)
[2019-06-04 06:49] LABS: Differential Comment SCANNED; Toxic Granulation 2+
[2019-06-04 08:20] VITALS: BP 133/73; PULSE 77; RESP 14; TEMP 36.9; O2SAT 98
--- NOTE | 2019-06-04 10:39 | DCINST_ITS ---
- Discharge Diagnoses Current Active Problems: Current Active and Chronic Problems Left epididymitis (Acute) Intractable nausea and vomiting (Acute) Sepsis (Acute) Intractable pain (Acute) You will use the following diet at home:: No restrictions Your food should be the consistency of: Regular Your liquids should be the consistency of: Regular/Thin Discharge Activity: - - no heavy lifting or sports while on antibiotics. Call your doctor if your incision/area has: Continuous Slow Oozing, Sudden Increased Bleeding, Increased Pain/ Swelling, Increased Redness, Foul Smelling Discharge, Swelling at the incision site Call your doctor if you observe: Fever of 101 or Higher Allergies/Adverse Reactions: Allergies No Known Allergies Allergy (Verified 01/02/18 06:07) Medications to take at Discharge Acetaminophen [Tylenol Tablet] 650 mg PO Q4H PRN PRN tablet 06/04/19 Oxycodone [Oxyir] 5 mg PO Q6H PRN PRN 3 Days #12 tablet 06/04/19 levoFLOXacin tablet [Levaquin tablet] 750 mg PO DAILY@0600 #10 tab 06/04/19 The following prescriptions were given: levoFLOXacin tablet [Levaquin tablet] 750 mg PO DAILY@0600 #10 tab Transmission Status: Pending to [facility] Oxycodone [Oxyir] 5 mg PO Q6H PRN PRN 3 Days #12 tablet PRN Reason: Pain Score 4-10/10 Transmission Status: Sent to [facility] Primary Care Physician: Care Physician,No Primary [Primary Care Provider] - Test Results: Test results from this visit will be discussed in further detail at your follow- up appointment, if applicable. Please Follow Up With: Pelon Posey MD - urology When: 1 week Proposed Discharge Date: 06/04/19
--- NOTE | 2019-06-04 10:42 | DS.PCM_ITS ---
Discharge Date and Diagnosis - Problem List Patient Problems: Active and Suspected Problems Left epididymitis (Acute) Intractable nausea and vomiting (Acute) Sepsis (Acute) Intractable pain (Acute) Date of Admission: 06/01/19 Date of Discharge: 06/04/19 - Primary Discharge Diagnosis Active and Suspected Problems Sepsis Epididymoorchitis Hospital Course and Treatment Imaging Results: Clinical Impression(s) from Imaging Studies Testicular Ultrasound 06/01/19 02:02 Testicular Ultrasound 06/01/19 22:24 IMPRESSION: There is heterogeneous echotexture of the left testicle may represent orchitis. There is hyperemia of the left epididymis suggesting epididymitis. There is skin thickening in the scrotal wall suggesting edema. Electronically Signed: Toshia Solares, at 2:49 EST Tel , Service support , Taty, urologfallon Operations: None Procedures: None Summary of Care Provided: The patient is a 23 year old M presents with testicular pain. Had been treated as oupt, but worsened. Presented to ED with 10/10 pain. US early on the showed left sided epididymitis. Later on the , it showed orchitis, epididymitis and scrotal wall edema. Patient then taken for surgery on the by Dr. Posey. He was found to have thrombosis of the left testicle and severe left epidiymitis. Given the non-viable appearance, he had a left orchiectomy and right orchiopexy. Patient tolerated the procedure well. Subsequent wound culture showed Pseudomonas, sensitive to levofloxacin. Patient will continue with levofloxacin for 10 more days. Patient will need to follow up with urology.[] Patient Problems: Active and Suspected Problems Left epididymitis (Acute) Intractable nausea and vomiting (Acute) Sepsis (Acute) Intractable pain (Acute) - Physical Exam Vitals/I&O's: Vital Signs Temp Pulse Resp BP Pulse Ox 36.9 C 77 14 133/73 H 98 06/04/19 08:20 06/04/19 08:20 06/04/19 08:20 06/04/19 08:20 06/04/19 08:20 Oxygen Flow Rate (L/min) 2 Oxygen Delivery Method Room Air Weight: 71.3 kg Body Mass Index (BMI) 20.1 Intake and Output for Last 24 Hours 06/02/19 06/03/19 06/04/19 23:59 23:59 23:59 Intake Total 4305.83 / 4305.83 3679.16 / 3879.16 200 / 200 Output Total 1200 / 1200 450 / 450 Balance 3105.83 / 3105.83 3229.16 / 3429.16 200 / 200 General: Alert, Cooperative, No apparent distress HEENT: Atraumatic, Normocephalic Oral: Moist Mucosa, No Gingival or Mucosal Lesions/ Ulcerations Neck: No Nodes, Trachea Midline Lungs: Clear to auscultation, Normal air movement, No rhonchi, No wheeze Cardiovascular: Regular rate, Regular Rhythm, Normal S1, Normal S2, No murmurs Abdomen: Bowel Sounds Present, Soft, Non Tender, Non-Distended, No Hepato- splenomegaly Extremities: No edema, No Calf Tenderness Skin: - - no scrotal erythema Psych/Mental Status: Normal Affect, Appropriate Microbiology Past 72 Hours 06/02/19 03:00 Wound Abcess - Other Gram Stain - Final 06/02/19 03:00 Wound Abcess - Other Wound Culture - Preliminary Pseudomonas aeroginosa 06/02/19 03:00 Wound Abcess - Other Anaerobic Culture - Preliminary No growth in 48 hours. 06/01/19 04:20 Urine, Clean Catch Urine Culture - Final Mixed Gram Positive Organisms Laboratory Results 06/02/19 05:14: Diff Path Review Reviewed 06/04/19 05:14: WBC 12.9 H, RBC 3.96 L, Hgb 11.3 L, Hct 33.5 L, MCV 84.6, MCH 28.5, MCHC 33.7, RDW Std Deviation 39.4, RDW Coeff of Kenji 12.9, Plt Count 220, MPV 11.3, Immature Gran % (Auto) 0.500, Neut % (Auto) 80.5 H, Lymph % (Auto) 11.1 L, [place] % (Auto) 6.2, Eos % (Auto) 1.5, Baso % (Auto) 0.2, Absolute Neuts ( auto) 10.4 H, Absolute Lymphs (auto) 1.42, Nucleated RBC % 0, Differential Comment SCANNED, Toxic Granulation 2+ 06/04/19 05:14: Sodium 142, Potassium 3.7, Chloride 110 H, Carbon Dioxide 28.0, Anion Gap 4 L, BUN 12, Creatinine 0.84, Estim Creat Clear Calc 136.75, Est GFR (MDRD) Af Amer 143, Est GFR (MDRD) Non-Af 118, BUN/Creatinine Ratio 14.3, Glucose 104, Calcium 8.1 L Current Medications Acetaminophen (Tylenol) 650 mg PO Q4H PRN PRN PRN Reason: Pain Score 1-3/Temp > 100.7 F Last Admin: 06/03/19 20:05 Dose: 650 mg Documented by: Hydromorphone HCl (Dilaudid Inj) 0.5 mg IV Q4H PRN PRN PRN Reason: breakthrough pain (>4/10) Sodium Chloride () 250 mls @ 15 mls/hr IV .[id number] PRN PRN Reason: Saline Flush Sodium Chloride () 250 mls @ 15 mls/hr IV .[id number] PRN PRN Reason: Additional IVPB Infusion Levofloxacin (Levaquin Tablet) 750 mg PO DAILY@0600 [facility] Last Admin: 06/04/19 06:28 Dose: 750 mg Documented by: Ondansetron HCl (Zofran) 4 mg IV Q8H PRN PRN PRN Reason: NAUSEA/VOMITING Last Admin: 06/03/19 05:53 Dose: 4 mg Documented by: Oxycodone HCl (Oxyir) 5 mg PO Q4H PRN PRN PRN Reason: Pain Score 4-5/10 Last Admin: 06/03/19 09:58 Dose: 5 mg Documented by: Oxycodone HCl (Oxyir) 10 mg PO Q4H PRN PRN PRN Reason: Pain Score 6-10/10 Promethazine HCl (Phenergan) 12.5 mg IV Q4H PRN PRN PRN Reason: NAUSEA/VOMITING Last Admin: 06/02/19 22:21 Dose: 12.5 mg Documented by: Sodium Chloride () 10 - 40 ml IV UD PRN PRN Reason: SALINE FLUSH Last Admin: 06/01/19 14:40 Dose: 10 ml Documented by: Temazepam (Restoril) 15 mg PO QHS PRN PRN PRN Reason: INSOMNIA Discharge Diet: No Restrictions Discharge Activity: - - no heavy lifting or sports while on antibiotics. Call your doctor if your incision/area has: Continuous Slow Oozing, Sudden Inc reased Bleeding, Increased Pain/ Swelling, Increased Redness, Foul Smelling Discharge, Swelling at the incision site Call your doctor if you observe: Fever of 101 or Higher Home Medications: Medications to take at Discharge Acetaminophen [Tylenol Tablet] 650 mg PO Q4H PRN PRN tablet 06/04/19 Oxycodone [Oxyir] 5 mg PO Q6H PRN PRN 3 Days #12 tablet 06/04/19 levoFLOXacin tablet [Levaquin tablet] 750 mg PO DAILY@0600 #10 tab 06/04/19 Following Prescrptions Were Given to Patient: levoFLOXacin tablet [Levaquin tablet] 750 mg PO DAILY@0600 #10 tab Transmission Status: Pending to [facility] Oxycodone [Oxyir] 5 mg PO Q6H PRN PRN 3 Days #12 tablet PRN Reason: Pain Score 4-10/10 Transmission Status: Sent to [facility] Primary Care Physician: Care Physician,No Primary [Primary Care Provider] - Please Follow Up With: Pelon Posey MD - urology When: 1 week Disposition: Home Minutes spent on discharge:: 32 Patient Condition:: Good Medical Necessity - Tobacco Use Smoking Status: Never smoker Meaningful Use Info Meaningful Use Diagnoses (Choose all that apply): None applicable Code Visit Inpatient E&M: 74668 Disch Hosp
--- NOTE | 2019-06-04 11:00 | CASEMGMT ---
NARINDER PEREZ Face to Face with patient for initial transition planning/care coordination assessment. NARINDER PEREZ introduced self and role at [facility]. Patient lying in bed, alert and oriented. Patient willing to participate in assessment and is able to answer all questions appropriately. Care providers, pharmacy, and demographics verified. Patient wishes to discharge home, denies need for home health at this time. Patient states he has no further needs or concerns at this time. CM to follow for discharge planning needs that may arise. PCP: Patient states that patient previously went to Dr. Mercer. RN CHRIS provided Dr. Mercer's information to schedule appointment. Specialists: Patient to follow-up with Dr. Posey Preferred Pharmacy: [facility] Insurance: none Prescription Benefit: none Living Will/HPOA: none LNOK: Mother Living Arrangements: Patient lives alone in 2 story house. Patient is independent at home. Transportation: self DME/HHC: Patient denies any DME or need for HHC. Disposition Plan: Patient to discharge home with family support and follow-up plans in place. Goldie ASHBY, RN, CM
== END 2019-06-04 11:40 | disposition home or self-care (01) | DRG 483 ==
LOC: ED 05:33 → MS3 05:45
PROVIDERS: Internal Medicine; Urology; Admitting Provider Family Medicine; Emergency Provider Emergency Medicine
PROC: 0VTB0ZZ Resection of Left Testis, Open Approach (ICD-10-PCS; CPT 54600; principal; 2019-06-02 02:00)
DX: N45.3 Epididymo-orchitis (principal); N50.1 Vascular disorders of male genital organs; B96.5 Pseudomonas (aeruginosa) (mallei) (pseudomallei) as the cause of diseases classified elsewhere; N50.89 Other specified disorders of the male genital organs
CPT/HCPCS: 36415; 76870; 80048; 81001; 85025; 87015; 87070; 87075; 87077; 87086; 87088; 87102; 87116; 87184; 87186; 87205; 87206; 87491; 87591; 88305; 93976; 99251; 99284; J7030; J7050; J7120; A4216; G0463; J2405

== ENCOUNTER 2020-12-16 21:36 | Observation (INO) | payer MEDICAID, SELFPAY ==
[2020-12-16 21:37] VITALS: BP 140/90; PULSE 90; RESP 18; TEMP 36.6; O2SAT 97; BMI 19.2
--- NOTE | 2020-12-16 22:36 | EX.ED.GUMALE ---
HPI History of Present Illness Chief Complaint: Mak C/O Narrative Narrative: 25-year-old male presenting with urethral pain. He states he put a Mak catheter in his penis for pleasure and subsequently cut off the end of the catheter with the bulb still inflated. He is unable to remove this. He is unable to void for a couple of hours. He complains of suprapubic pain. Denies fever or chills. Denies any other trauma. [facility] Medical History (Updated 12/16/20 @ 23:[address] Margarita Scott MD) Foreign body in urethra, initial encounter Allergy/AdvReac Type Severity Reaction Status Date / Time No Known Allergies Allergy Verified 12/16/20 21:42 Surgical History History of appendectomy Social History Smoking Status: Never smoker ROS ROS ED Constitutional Constitutional ED: Denies chills or fever(s) Eyes Eyes: Denies blurry vision or change in vision ENT ENT ED: Denies rhinorrhea or sore throat Cardiovascular Cardiovascular: Denies chest pain, palpitations or racing heartbeat Respiratory/Chest Respiratory/Chest: Denies cough, dyspnea or sputum Gastrointestinal Gastrointestinal: Reports abdominal pain; Denies constipation, diarrhea, nausea or vomiting Genitourinary Genitourinary ED: Denies dysuria or hematuria Musculoskeletal Musculoskeletal: Denies arthralgias or myalgias Integumentary Denies abscess or rash Neurologic Neurologic: Denies headache(s) or paresthesias EXAM Physical Exam Const Vital Signs: 12/16/20 21:37 12/16/20 23:49 Temperature 97.9 F 98.7 F Temperature Source Temporal Oral Pulse Rate 90 78 Respiratory Rate 18 18 Blood Pressure 140/90 H 146/86 H Blood Pressure Mean 106 106 Blood Pressure Source Monitor Blood Pressure Position Supine Blood Pressure Location Right Arm Pulse Ox 97 98 Oxygen Delivery Method Room Air Room Air Positive well nourished General Appearance ED: NAD HEENT normocephalic and atraumatic Eyes PERRL and EOMs intact bilaterally Resp normal respiratory effort and clear to auscultation bilaterally Cardio regular rate and regular rhythm GI GI Narrative: Mild suprapubic fullness no CVA tenderness Narrative: Mak catheter noted to be in the urethra. Penis: normal penis and circumcised Neuro oriented x3 Sensorium / Orientation: alert Psych mental status grossly normal Skin Lesions: no lesions Rashes: no rashes MDM MDM MDM Narrative Medical decision making narrative: 25-year-old male with foreign body in his urethra. He states he bought a Mak catheter off of [employer] and stuck it in his urethra for pleasure. He subsequently cut off the end of the Mak catheter and has not been able to deflate this. He cannot get this out. Attempt was made in the ED to deflate this which was unsuccessful. Discussed with Dr. Scott who did come to try to deflate Mak catheter with a guidewire however this attempt was unsuccessful. Patient will be taken to the OR for removal. Impression: 1. Urethral foreign body Discharge Plan Triage Chief Complaint: Mak C/O ED Provider: Jeremy Solo Dx/Rx/DC Orders Primary Care Provider: Mark Mercer
[2020-12-16] MEDS: Morphine 4 MG/ML Syringe IV (23:20)
[2020-12-16] MEDS: Ondansetron 4 MG/2 ML Vial IV (23:20)
--- NOTE | 2020-12-16 23:45 | PCM.HP.STD ---
HPI - General HPI Narrative DAVID NOLASCO, is a 25 M who presents to the emergency room with a Mak catheter stuck in his urethra. He reports that he ordered the catheter on [employer] and approximately an hour prior to presentation in the emergency room, he inserted the catheter for self pleasure. He inflated the balloon with air. He attempted to deflate the balloon and was unsuccessful. Because of this he cut the Mak catheter between the balloon port and the urethra. The emergency department was unable to remove the Mak catheter and I was called for evaluation. I was unable to remove the Mak catheter following attempts with clearing the port using multiple different Glidewires. COUNTS INCLUDE 234 BEDS AT THE [facility] Medical History (Updated 12/16/20 @ 23:[address] Margarita Scott MD) Foreign body in urethra, initial encounter Allergy/AdvReac Type Severity Reaction Status Date / Time No Known Allergies Allergy Verified 12/16/20 21:42 Surgical History History of appendectomy Social History Smoking Status: Never smoker ROS Constitutional Constitutional: Reports systems reviewed and no addt'l complaints, except as documented Eyes Eyes: Reports systems reviewed and no addt'l complaints, except as documented ENT HEENT: Reports systems reviewed and no addt'l complaints, except as documented Cardiovascular Cardiovascular: Denies chest pain or dyspnea Respiratory/Chest Respiratory/Chest: Denies dyspnea or inability to speak Gastrointestinal Gastrointestinal: Denies abdominal pain Genitourinary Genitourinary: Reports systems reviewed and no addt'l complaints, except as documented Musculoskeletal Musculoskeletal: Reports systems reviewed and no addt'l complaints, except as documented Integumentary Integumentary: Reports systems reviewed and no addt'l complaints, except as documented Neurologic Neurologic: Reports systems reviewed and no addt'l complaints, except as documented Vital Signs Vital Signs Vital Signs: 12/16/20 21:37 Temperature 97.9 F Temperature Source Temporal Pulse Rate 90 Respiratory Rate 18 Blood Pressure 140/90 H Blood Pressure Mean 106 Pulse Ox 97 Oxygen Delivery Method Room Air Weight Weight: 68.039 kg Body Mass Index (BMI) 19.2 Physical Exam Const alert and oriented x3 General Appearance: cooperative, in distress Positive for mild and anxious Orientation / Consciousness: awake HEENT normocephalic, head/scalp atraumatic and external ears normal Head and Scalp: normal to inspection Eyes no scleral icterus General Eye: normal appearance of both eyes Neck supple General: trachea midline Lymph Lymphatic: no lymphedema noted Chest inspection of chest normal Chest: symmetrical chest wall rise Resp normal respiratory effort, normal air movement, no retractions and no use of accessory muscles Cardio regular rate and regular rhythm GI soft to palpation, non-tender and non-distended external exam normal, testes normal and scrotum normal Narrative: The patient has a small urethral meatus and what appears to be a 14-16 Cymro Mak catheter extending from the meatus with the distal aspect being cut from the catheter. The balloon is palpable in the bulbar urethra. Penis: normal penis and circumcised Extremity normal to inspection Skin no rashes or lesions noted Neuro oriented x3, CN's II-XII intact bilaterally and moves all extremities Psych mental status grossly normal, cooperative and affect normal Assessment & Plan Assessment/Plan (1) Foreign body in urethra, initial encounter: PLAN: We will proceed to the operating room for removal of Mak catheter and cystoscopy, replacement of Mak catheter. The risks of the procedure were discussed with the patient including the risks of anesthesia, cardiac, pulmonary issues, stroke, from anesthesia, bleeding, infection or injury, including incontinence, urethral stricture. He understands and agrees to proceed.
[2020-12-16 23:49] VITALS: BP 146/86; PULSE 78; RESP 18; TEMP 37.1; O2SAT 98; BMI 19.2
[2020-12-17] VITALS (10 sets, daily range): BP systolic 114–152; BP diastolic 56–90; PULSE 62–93; RESP 15–20; TEMP 36.2–36.9; O2SAT 96–100; BMI 19.9
[2020-12-17] MEDS: Lidocaine 1% /Epi 1:100 (20ml) 20 ML Vial
--- NOTE | 2020-12-17 00:14 | OP.PCM_ITS ---
Problems Associated Problem List Diagnoses (1) Foreign body in urethra, initial encounter: Report of Operation Date of Procedure: 12/17/20 Pre-Operative Diagnosis: Urethral foreign body Post-Operative Diagnosis: Same, Meatal stenosis Surgery/Procedure Performed:: Removal urethral foreign body, urethral dilation, cystoscopy, placement Mak catheter Surgeon: Margarita Scott Type of Anesthesia: General Drains: 22 Danish Mak catheter Description of Procedure: The patient is a 25-year-old male with a Mak cathet er stuck in his urethra with the balloon inflated and palpable in the bulbar urethra. I was unable to remove the Mak catheter in the emergency room after attempts at wire placement through the balloon port. Informed consent was obtained and the patient agreed to proceed with removal in the operating room with cystoscopy and Mak catheter placement. The patient was taken the operating room and placed on the operating room table. Anesthesia monitored the head, neck, airway, IV access and vital signs throughout the case. Once anesthesia was appropriate ministered the patient was placed into dorsal lithotomy position was prepped and draped in usual sterile fashion. The area overlying the inflated balloon was infiltrated with 1% lidocaine, a needle was inserted through this area into the Mak balloon which was then deflated and the Mak catheter was easily removed. The balloon appeared to be completely present. Upon removal of the catheter, bloody urine began to flow from the urethra. A 19 Danish cystoscope was unable to pass through the urethral meatus secondary to stenosis. This was dilated to 26 Danish and the 19 Danish cystoscope was inserted through the urethra following insertion of a Urojet. There was bleeding from the area of the urethra where the balloon was stuck. Upon entry into the urinary bladder, multiple clots were evacuated and the bladder was irrigated. Visualization was difficult secondary to bleeding and the decision was made to remove the cystoscope and place a Mak catheter with 30 cc balloon for tamponade. A wire was inserted through the cystoscope and a 22 Danish Mak catheter was inserted over the wire. 30 cc of sterile water were inserted into the balloon. The Mak catheter was irrigated to light pink with a few more clots out. At this time the patient was awakened and taken to the recovery room in good condition. There were no complications during this procedure. Grafts/Implants Used: None Complications None Admit VTE Documentation VTE Present on Admission: No
--- NOTE | 2020-12-17 00:16 | PCM.DC ---
Discharge Instructions Diet Discharge Diet: No restrictions Activity Discharge Activity: Return to Normal Activity and May Shower May resume sexual activity in: 2 weeks Dressing / Incision Call your doctor if you observe: Fever of 101 or Higher, Inability to urinate, Inability to have a bowel movement and Uncontrolled pain Catheter: Ochoa to leg bag Follow Up Care Please Follow Up With: Margarita Scott MD When: Next week for ochoa removal. Test Results: Test results from this visit will be discussed in further detail at your follow-up appointment, if applicable. Discharge Plan Admission Admit Date/Time: 12/17/20 01:45 Attending Provider: Margarita Scott Primary Care Provider: Mark Mercer Discharge Orders/Prescriptions Prescriptions: New oxycodone-acetaminophen [Percocet] 5-325 mg tablet 1 tab PO Q8H PRN (Reason: pain) 3 Days Qty: 20 RF: 0 cephalexin [cephalexin] 500 MG capsule 500 mg PO TID 3 Days Qty: 9 RF: 0 phenazopyridine [Pyridium] 200 MG tablet 200 mg PO TID PRN PRN (Reason: Bladder Spasms) 7 Days Qty: 30 RF: 0 Referrals / Follow Up: Mark Mercer MD [Primary Care Provider] - Disposition Disposition (needs filled in before D/C Order can be placed): Home, Self Care
[2020-12-17] MEDS: Lidocaine Jelly 2% 20 ML Syringe (URO-JET) 20 APPLIC (00:38)
[2020-12-17] MEDS: Lubricating Jelly 60 GM Tube 30 GM TOPICAL (00:55)
[2020-12-17] MEDS: Lactated Ringers 1,000 ML 100 ML IV (01:23)
[2020-12-17] MEDS: Dextrose 5%-Lactated Ringers 1,000 ML 100 ML IV (02:32)
[2020-12-17] MEDS: Cefazolin 1 GM/50 ML BAG IV (05:58)
[2020-12-17] MEDS: Docusate Sodium 100 MG Capsule PO (10:54)
--- NOTE | 2020-12-17 13:25 | PCM.PN.BLA ---
Progress Note The patient is sitting up in bed. He is comfortable. Tolerating oral intake. Denies pain. He reports that he will be leaving for [place] and will not be returning for at least 7 days. We discussed that a Ochoa needs to be draining clear urine prior to his discharge and travel to [place]. Physical Exam Narrative Patient is alert and oriented x3. Comfortable in no distress. No specific complaints. Abdomen is soft nontender, nondistended. The Ochoa catheter is draining bloody urine. Multiple small clots were irrigated and the urine cleared to light pink. Assessment & Plan Assessment/Plan (1) Foreign body in urethra, initial encounter: (2) Gross hematuria: PLAN: continue ochoa irrigation to keep urine draining light pink to clear. plan for discharge once clear with ochoa to straight drain. Ochoa will be removed in office due to urethral trauma from the ochoa balloon.
== END 2020-12-17 15:20 | disposition home or self-care (01) ==
LOC: ED 23:43 → SDC 23:46 → MS3 12-17 00:07 → SDC 12-17 07:37 → MS3 12-17 07:37
PROVIDERS: Admitting Provider Urology; Emergency Provider Student in an Organized Health Care Education/Training Program; Visit Provider Urology
PROC: 0TJB8ZZ Inspection of Bladder, Via Natural or Artificial Opening Endoscopic (ICD-10-PCS; CPT 52000; principal; 2020-12-17 12:05)
DX: T19.0XXA Foreign body in urethra, initial encounter (principal); X58.XXXA Exposure to other specified factors, initial encounter; Y93.89 Activity, other specified; Y92.9 Unspecified place or not applicable; Y99.9 Unspecified external cause status; N35.911 Unspecified urethral stricture, male, meatal
CPT/HCPCS: 00910; 52281; 96361; 96365; 96375; 99218; 99283; J7120; A4216; C1769; G0378; J2405; J3490

== ENCOUNTER 2021-05-17 16:08 | Emergency (ER) | payer MEDICAID, SELFPAY ==
[2021-05-17 16:08] VITALS: BP 110/72; PULSE 96; RESP 16; TEMP 38.3; O2SAT 97; BMI 19.9
[2021-05-17 18:52] LABS: Absolute Lymphocyte Count 0.33 X10^3/uL (0.83-4.51); Absolute Neutrophil Count 8.3 X10^3/uL (2.0-7.7); Basophil# 0.03 X10^3/uL; Basophil% 0.3 % (0-1); Eosinophil# 0.03 X10^3/uL; Eosinophils% 0.3 % (0-5); Hematocrit 47.3 % (40-54); Lymphocyte # 0.33 X10^3/ul (0.83-4.51); Lymphocyte % 3.6 % (19-41); Mean Corp Hgb Conc 33.8 g/dL (32-36); Mean Corpuscular Hgb 27.8 pg (27.0-32.0); Mean Corpuscular Volume 82.1 fL (80-94); Mean Platelet Vol. 10.9 fl (6.2-12.0); Monocyte# 0.34 X10^3/uL; Monocyte% 3.7 % (0-10); NRBC Flagged by Analyzer 0 % (0-5); Neutrophil # 8.31 X10^3/uL (2.7-7.7); Neutrophil % 91.8 % (47-70); POSITIVE DIFFERENTIAL YES; Platelet Count 211 K/mm3 (150-450); RBC Distribution Width SD 38.6 fl (35.1-43.9); Red Blood Count 5.76 M/mm3 (4.6-6.2); White Blood Count 9.1 K/mm3 (4.4-11.0)
[2021-05-17 18:57] LABS: Differential Indicated SCAN CRITERIA MET
[2021-05-17 19:20] LABS: Anion Gap 6 (5-15); BUN 13 mg/dL (7-18); Calcium,Total 9.4 mg/dL (8.5-10.1); Chloride 107 mmol/L (98-107); EST Glomerular Filtration Rate 96 mL/min (>60); Est Glom Filt Rate - Afr Amer 116 mL/min (>60); Estimated Creatinine Clearance 111.32 ml/min; Glucose 104 mg/dL (74-106); Potassium 4.2 mmol/L (3.5-5.1); Sodium Level 139 mmol/L (136-145)
[2021-05-17 21:13] LABS: Bacteria 0 SEEN /hpf (None Seen); Squamous Epithelial Cells - UA 0 SEEN /hpf (0-5)
[2021-05-17 21:24] LABS: Color, Urine Yellow (Yellow); Glucose, Dipstick Normal (Normal); Ketone-Dipstick 15 mg/dl (Negative); Leukocyte Esterase-Dipstick 100 /ul (Negative); Nitrite-Dipstick Negative (Negative); Occult Blood-Urine 10 /ul (Negative); Protein-Dipstick 15 mg/dl (Negative); Specific Gravity, Urine 1.015 (1.002-1.030); Urine Bilirubin Dipstick Negative (Negative); Urine Clarity Clear (Clear); Urine Urobilinogen 1 mg/dl (Normal)
[2021-05-17 21:31] LABS: White Blood Cells 10-25 SEEN /hpf (0-5)
[2021-05-17 21:32] LABS: Mucous, Urine 1+ /hpf (<or=2+); Red Blood Cells-Urine 0-5 SEEN /hpf (0-5)
[2021-05-17] MEDS: Ondansetron 4 MG/2 ML Vial IV (21:57)
[2021-05-17] MEDS: Famotidine 200 MG/20 ML MDV 20 MG in 0.9% Normal Saline (Pres. free 8 ML 300 MG IV (21:57)
[2021-05-17] MEDS: 0.9% Normal Saline 1,000 ML 1000 ML IV (21:57)
[2021-05-17] MEDS: Ketorolac 15 MG/ML Vial IV (21:57)
[2021-05-17 22:27] VITALS: BP 118/63; PULSE 70; RESP 15; O2SAT 99
[2021-05-17 23:19] LABS: Lipase 58 U/L (73-393)
--- NOTE | 2021-05-18 00:06 | ED.VIS.GI ---
HPI HPI - GI History of Present Illness Chief Complaint: Abd Pain Informant: patient Narrative Narrative: Patient is a 25-year-old male presenting with vomiting, diarrhea and cramping abdominal pain. Is also had some low back pain with this. States it feels like his guts are being squeezed. He ate ham and had beef jerky last night. He notes everyone in his household also has the same symptoms. He has had mild cough and chest tightness yesterday but did not have any currently. Denies any blood in his stool. Patient is febrile in the ER was not aware he is having fevers. Denies any other body aches. Has had a prior appendectomy. Denies any urinary symptoms. No other complaints at this time. PFSH PFSH Medical History Foreign body in urethra, initial encounter Gross hematuria Migraines Non-smoker Home Medications ondansetron HCl 4 mg PO Q8H 5 Days #15 tab 05/18/21 [Rx Last Taken Unknown] Allergy/AdvReac Type Severity Reaction Status Date / Time No Known Allergies Allergy Verified 05/17/21 16:11 Surgical History History of appendectomy Social History Smoking Status: Never smoker ROS ROS ED Constitutional Constitutional ED: Reports fever(s) ENT ENT ED: Denies ear pain or sore throat Cardiovascular Cardiovascular: Denies chest pain Respiratory/Chest Respiratory/Chest: Reports cough; Denies dyspnea Gastrointestinal Gastrointestinal: Reports abdominal pain, diarrhea, nausea and vomiting; Denies melena Genitourinary Genitourinary ED: Denies dysuria, hematuria or urinary frequency Musculoskeletal Musculoskeletal: Reports back pain; Denies arthralgias or myalgias Integumentary Denies rash Neurologic Neurologic: Denies headache(s), paresthesias or weakness Psychiatric Psychiatric: Denies depression EXAM Physical Exam Const Vital Signs: 05/17/21 16:08 05/17/21 22:27 05/18/21 00:27 Temperature 101.0 F H Temperature Source Oral Pulse Rate 96 70 Respiratory Rate 16 15 16 Blood Pressure 110/72 118/63 Blood Pressure Mean 84 81 Pulse Ox 97 99 Oxygen Delivery Method Room Air Room Air Positive well nourished and well developed General Appearance ED: well developed HEENT normocephalic and atraumatic Eyes PERRL Neck supple Resp normal respiratory effort and clear to auscultation bilaterally Cardio regular rate, regular rhythm and no murmurs GI non-tender and non-distended Inspection: Negative for abdominal distention Auscultation: hypoactive bowel sounds Palpation: soft Back/Spine no CVA tenderness Extremity full ROM General Extremety ED: Negative for edema General Extremity: Negative for edema Neuro moves all extremities Sensorium / Orientation: alert Motor Exam: Negative for general weakness Skin Lesions: no lesions Rashes: no rashes MDM MDM MDM Narrative Medical decision making narrative: Patient is evaluated for vomiting and diarrhea. He appears uncomfortable but no acute distress. He is febrile. His abdomen is soft. He is already had an appendectomy. He does not have any focal abdominal tenderness. Given multiple family numbers the same symptoms I suspect this is viral/infectious in nature. He is given IV Zofran, Toradol, Pepcid and fluids. He has improved on reevaluation. Abdomen is soft and nontender. Covid test obtained which is negative. Patient discharged home with a prescription for Zofran. Is instructed take [id number] Pepto-Bismol to help with the diarrhea and abdominal discomfort. He is counseled that it can discolor the stool black. Is encouraged to follow-up with primary care doctor. Given return precautions. Patient does not have a leukocytosis or any acute laboratory normalities. He does have some white blood cells in his urine and urine culture sent. There is no bacteria. I suspect this is more reactive from his gastroenteritis. I do not think imaging of his abdomen is indicated at this time. Lab Data Attestation: I reviewed the patient's lab results. Labs: Laboratory Results - last 24 hr 05/17/21 05/17/21 05/17/21 18:43 18:43 18:43 WBC 9.1 RBC 5.76 Hgb 16.0 Hct 47.3 MCV 82.1 MCH 27.8 MCHC 33.8 RDW Std Deviation 38.6 RDW Coeff of Kenji 13.0 Plt Count 211 MPV 10.9 Immature Gran % (Auto) 0.300 Neut % (Auto) 91.8 H Lymph % (Auto) 3.6 L [place] % (Auto) 3.7 Eos % (Auto) 0.3 Baso % (Auto) 0.3 Absolute Neuts (auto) 8.3 H Absolute Lymphs (auto) 0.33 L Nucleated RBC % 0 Differential Comment Sodium 139 Potassium 4.2 Chloride 107 Carbon Dioxide 26.0 Anion Gap 6 BUN 13 Creatinine 1.00 Estim Creat Clear Calc 111.32 Est GFR (MDRD) Af Amer 116 Est GFR (MDRD) Non-Af 96 BUN/Creatinine Ratio 13.0 Glucose 104 Calcium 9.4 Lipase 58 L Urine Color Urine Clarity Urine pH Ur Specific [place] Urine Protein Urine Glucose (UA) Urine Ketones Urine Occult Blood Urine Nitrite Urine Bilirubin Urine Urobilinogen Ur Leukocyte Esterase Urine RBC Urine WBC Ur Squamous Epith Cells Urine Bacteria Urine Mucus 05/17/21 21:05 WBC RBC Hgb Hct MCV MCH MCHC RDW Std Deviation RDW Coeff of Kenji Plt Count MPV Immature Gran % (Auto) Neut % (Auto) Lymph % (Auto) [place] % (Auto) Eos % (Auto) Baso % (Auto) Absolute Neuts (auto) Absolute Lymphs (auto) Nucleated RBC % Differential Comment Sodium Potassium Chloride Carbon Dioxide Anion Gap BUN Creatinine Estim Creat Clear Calc Est GFR (MDRD) Af Amer Est GFR (MDRD) Non-Af BUN/Creatinine Ratio Glucose Calcium Lipase Urine Color Yellow Urine Clarity Clear Urine pH 5.0 Ur Specific [place] 1.015 Urine Protein 15 H Urine Glucose (UA) Normal Urine Ketones 15 H Urine Occult Blood 10 H Urine Nitrite Negative Urine Bilirubin Negative Urine Urobilinogen 1 H Ur Leukocyte Esterase 100 H Urine RBC 0-5 SEEN Urine WBC 10-25 SEEN Ur Squamous Epith Cells 0 SEEN Urine Bacteria 0 SEEN Urine Mucus 1+ Discharge Plan Triage Chief Complaint: Abd Pain ED Provider: Rahel Booth Dx/Rx/DC Orders Clinical Impression: Abdominal pain, vomiting, and diarrhea, Encounter for laboratory testing for COVID-19 virus Instructions: ED Diet for Vomiting or ..., ED Vomiting and Diarrhea ... Prescriptions: New ondansetron HCl 4 mg tablet 4 mg PO Q8H 5 Days Qty: 15 RF: 0 Primary Care Provider: Mark Mercer Referrals: Mark Mercer MD [Primary Care Provider] - Activity Restrictions/Additional Instructions: Your Covid test is pending. You should be texted with the results. If you are positive you need to quarantine from 10 days onset of symptoms. Take over the counter Pepto Bismol to help with your symptoms. Disposition Disposition: Home, Self Care Discharge Date/Time: 05/18/21 00:29
[2021-05-18 00:27] VITALS: RESP 16
== END 2021-05-18 00:29 | disposition home or self-care (01) ==
PROVIDERS: Emergency Provider Emergency Medicine; Visit Provider Emergency Medicine
DX: R10.9 Unspecified abdominal pain (principal); R11.2 Nausea with vomiting, unspecified; R19.7 Diarrhea, unspecified; Z20.822 Contact with and (suspected) exposure to COVID-19
CPT/HCPCS: 80048; 81001; 83690; 85025; 87086; 87088; 87426; 99283; J7030; A4216; J2405; J3490

== ENCOUNTER 2022-05-17 00:28 | Emergency (ER) | payer MEDICAID, SELFPAY ==
[2022-05-17 00:29] VITALS: BP 155/78; PULSE 90; RESP 18; TEMP 36.3; O2SAT 99; BMI 21.2
--- NOTE | 2022-05-17 01:16 | EDS_ITS ---
HPI History of Present Illness Chief Complaint: Dizziness Informant: patient Onset/Context/Timing Onset: Today Context: Sudden Onset Timing: Intermittent Current Severity: Gone Maximum Severity: Mild Narrative Narrative: 26-year-old male history of ADHD and depression. On Adderall and Prozac. 0 work tonight is said he felt shaky. Just felt tired. Those symptoms have resolved. He feels fine now. Says he was dizzy that is since resolved. Denies room spinning. No headache. He denies any nausea, vomiting, diarrhea, fever or chills. No weakness. No recent illness or hospitalization. Prior similar symptoms: No Recent Illness/Hospitalization: No PFSH PFSH Medical History Foreign body in urethra, initial encounter Gross hematuria Migraines Non-smoker Home Medications dextroamphetamine-amphetamine ER 15 mg 24hr capsule,extend release 15 mg PO DAILY 05/17/22 [History Last Taken Unknown] fluoxetine 40 mg capsule 40 mg PO DAILY 05/17/22 [History Last Taken Unknown] Allergy/AdvReac Type Severity Reaction Status Date / Time No Known Allergies Allergy Verified 05/17/22 00:31 Surgical History History of appendectomy Social History Smoking Status: Never smoker ROS ROS ED ROS Narrative Dizziness resolved. Review of Systems ROS Unobtainable: Denies due to encephalopathy Constitutional Constitutional ED: Denies chills or fever(s) Eyes Eyes: Denies blurry vision ENT ENT ED: Denies ear pain Cardiovascular Cardiovascular: Denies chest pain Respiratory/Chest Respiratory/Chest: Denies cough or dyspnea Gastrointestinal Gastrointestinal: Denies abdominal pain Genitourinary Genitourinary ED: Denies dysuria or hematuria Musculoskeletal Musculoskeletal: Denies arthralgias Integumentary Denies abscess Neurologic Neurologic: Denies headache(s) Psychiatric Psychiatric: Denies anxiety or depression Endocrine Endocrinology: Denies cold intolerance Hematologic/Lymphatic Hematologic/Lymphatic: Reports none Allergic/Immunologic Allergic/Immunologic ED: Denies mouth swelling or tongue swelling EXAM Physical Exam Narrative Exam Narrative: 6-year-old male no acute distress. Vital signs stable afebrile. Pulse ox 9 9% on room air no signs hypoxia. H EENT exam normal. Pupils round reactive light. Moist Ri[place] members. TMs normal bilaterally. No wax. Neck nontender. No lymphadenopathy. Lungs clear to auscultation bilaterally. Heart regular rate and rhythm rate about 90 no murmur. Chest wall nontender. Abdomen soft nontender. No peritoneal signs. Moving all 4 extremities. Calves are nontender without edema or cords. Back exam normal. Nontender. Neurologically is awake and alert. No focal motor or sensory deficits. NIH of 0. Fingertip to nose within normal limits. He gets up from the bed and ambulates to the door without any difficulty. No ataxia. Const Vital Signs: 05/17/22 00:29 Temperature 97.4 F L Temperature Source Temporal Pulse Rate 90 Respiratory Rate 18 Blood Pressure 155/78 H Blood Pressure Mean 103 Pulse Ox 99 Oxygen Delivery Method Room Air Positive well nourished and well developed; Negative for obese, cachectic, contractures or unkempt General Appearance ED: well developed and NAD; Negative for unkempt, cachectic, contractures, cyanotic, diaphoretic or pallor Nutritional Appearance: Negative for cachectic or obese HEENT Reports TM's clear and moist mucous membranes; Denies dry mucous membranes Negative for trauma or tenderness Tympanic Membrane ED: Yes TM's clear Mouth ED: No dry mucous membranes Mouth: No dry mucous membranes Eyes PERRL and EOMs intact bilaterally General Eye ED: Negative for pale conjunctiva or scleral icterus Neck no lymphadenopathy, supple and no JVD General: Negative for tenderness Lymph Lymphatic: Negative for other Chest Wall inspection of chest normal and palpation of chest normal Chest: Negative for other Resp normal respiratory effort and clear to auscultation bilaterally Effort and Inspection: Negative for retractions, pain with movement or other Auscultation: Negative for rales, rhonchi or wheezes Cardio regular rate, regular rhythm, S1 normal heart sound, S2 normal heart sound and no murmurs Rate: Negative for bradycardia or tachycardic Rhythm: Negative for abnormal rhythm GI normal to inspection, nondistended, normoactive bowel sounds, non-tender, non- distended and no masses; Negative for hepatosplenomegaly Inspection: Negative for abdominal distention Auscultation: normoactive bowel sounds Palpation: soft; Negative for tender, guarding, mass or rebound tenderness present Back/Spine no CVA tenderness General Back: Negative for CVA tenderness Cervical Spine: Negative for cervical spine tenderness Thoracic Spine / Upper Back: Negative for thoracic spinal tenderness or paraspinal muscle tenderness Lumbar Spine / Lower Back: Negative for lumbar spinal tenderness Extremity normal to inspection General Extremety ED: Negative for edema or tenderness General Extremity: Negative for edema Neuro oriented x3, CN's II-XII intact bilaterally and no sensory deficits noted Neuro Narrative: Neuro normal. NIH is 0. Patient is able to stand up out of bed walk to the door without any difficulty. No ataxia. Sensorium / Orientation: alert and orientation impaired; Negative for lethargic or stuporous Sensory Exam: No sensory level loss detected Motor Exam: strength 5/5 throughout Psych mental status grossly normal Appearance: Negative for unkempt Attitude: No agitated Mood & Affect: Negative for depressed, anxious or tearful Skin no rashes or lesions noted, no wounds and skin turgor normal General Skin Exam: elasticity normal; Negative for jaundice or pallor Lesions: No lesion noted Rashes: No rashes noted Trauma: Negative for abrasion Wounds: Negative for wounds noted MDM MDM MDM Narrative Medical decision making narrative: 26-year-old male had dizziness at work that resolved. Currently symptom-free. He is completely normal exam. I do not think he needs any testing. This may have been anxiety. I do not think it was a cardiac event. He has had no recent symptoms. I do not think he needs blood work. Discharge Plan Triage Chief Complaint: Dizziness ED Provider: Naresh Dorado Dx/Rx/DC Orders Clinical Impression: Dizziness, History of ADHD Instructions: ED Dizziness, Uncertain Cause Prescriptions: No Action fluoxetine 40 mg capsule 40 mg PO DAILY dextroamphetamine-amphetamine 15 mg capsule,extended release 24hr 15 mg PO DAILY Primary Care Provider: Mark Mercer Referrals: Mark Mercer MD [Primary Care Provider] - 3-5 Days if not improving Activity Restrictions/Additional Instructions: Your exam is normal. Plenty of fluids and rest. Return if worse. Follow-up if not improving. Disposition Disposition: Home, Self Care
== END 2022-05-17 01:28 | disposition home or self-care (01) ==
PROVIDERS: Emergency Provider Emergency Medicine; Visit Provider Emergency Medicine
DX: R42 Dizziness and giddiness (principal); F90.9 Attention-deficit hyperactivity disorder, unspecified type; F32.A Depression, unspecified
CPT/HCPCS: 99282

== ENCOUNTER 2022-07-17 03:28 | Emergency (ER) | payer MEDICAID, SELFPAY ==
[2022-07-17 03:29] VITALS: BP 156/79; PULSE 98; RESP 18; TEMP 36.7; O2SAT 100; BMI 22.3
--- NOTE | 2022-07-17 03:36 | EDS_ITS ---
HPI History of Present Illness Chief Complaint: Male Pain/Injury Informant: patient Narrative Narrative: Patient presents with pain in his left testicle area. He states it started 2 or maybe 3 days ago. It burning itches and stings. It is turned red. He denies any trouble urinating. No burning frequency urgency. There is no penile discharge. No rectal pain. He is eating and drinking normally. No history of kidney stones. No trauma. It sounds like he has had epididymitis before. PFSH PFSH Medical History Foreign body in urethra, initial encounter Gross hematuria Migraines Non-smoker Home Medications dextroamphetamine-amphetamine ER 15 mg 24hr capsule,extend release 15 mg PO DAILY 05/17/22 [History Last Taken Unknown] fluoxetine 40 mg capsule (Prozac) 40 mg PO DAILY 05/17/22 [History Last Taken Unknown] cephalexin 500 mg capsule 500 mg PO Q6 #40 CAPSULES 07/17/22 [Rx Last Taken Unknown] hydrocodone-acetaminophen 5-325mg 5mg-325mg 1 tab PO Q4H PRN PRN Pain 2 days #6 TABLETS 07/17/22 [Rx Last Taken Unknown] sulfamethoxazole 800 mg-trimethoprim 160 mg tablet 1 tab PO BID #20 TABLETS 07/17/22 [Rx Last Taken Unknown] Allergy/AdvReac Type Severity Reaction Status Date / Time No Known Allergies Allergy Verified 05/17/22 00:31 Surgical History History of appendectomy Social History Smoking Status: Never smoker ROS ROS ED Constitutional Constitutional ED: Denies fever(s) or subjective ENT ENT ED: Denies rhinorrhea Cardiovascular Cardiovascular: Denies chest pain or palpitations Respiratory/Chest Respiratory/Chest: Denies cough Gastrointestinal Gastrointestinal: Denies abdominal pain, constipation, diarrhea, melena, nausea or vomiting Genitourinary Genitourinary ED: Reports other Details: See history of present illness. ; Denies dysuria, hematuria or urinary frequency Musculoskeletal Musculoskeletal: Denies back pain Integumentary Denies rash Neurologic Neurologic: Denies headache(s) Hematologic/Lymphatic Hematologic/Lymphatic: Denies easy bleeding or easy bruising Allergic/Immunologic Allergic/Immunologic ED: Denies urticaria EXAM Physical Exam Narrative Exam Narrative: Patient awake alert laying in bed no acute distress. HEENT shows no thrush. No dehydration/dry mucous membranes noted. Lungs are clear bilaterally. Normal saturations. Heart is regular without murmur gallop or rub Abdomen soft and completely nontender. Bowel sounds are normal. No hernia. shows no CVA tenderness or suprapubic tenderness. Examination shows normal right testicle scrotum and normal penis. No lymphadenopathy. He does appear to have erythema warmth and some swelling of the left side of the scrotum. There is a scabbed area in the inferior portion that look like it may have been start of infection. It is very soft around this. I wondered if this opened up but he has not noted any drainage. I did do a bedside ultrasound that is supportive of fluid under this area. I believe this represents an abscess at the anterior inferior portion of the scrotum. He does not have any inguinal lymphadenopathy or swelling. No indication of hernia. Extremities show no rash or edema. Const Vital Signs: 07/17/22 03:29 Temperature 98.0 F Temperature Source Temporal Pulse Rate 98 Respiratory Rate 18 Blood Pressure 156/79 H Blood Pressure Mean 104 Pulse Ox 100 Oxygen Delivery Method Room Air MDM MDM MDM Narrative Medical decision making narrative: I discussed options with the patient. This does look like a scrotal cellulitis but I am concerned there may be a component of an abscess. I explained that we should probably anesthetize this area and see if we can get some drainage from the soft area near the's scab that he has. He did agree to this. We will assemble the equipment and initiate this process. Procedure: Incision drainage of scrotal abscess on the left: I discussed risk benefits and the options of using warm compresses and antibiotics alone. He did agree to the incision and drainage. The area was cleansed and draped. He was anesthetized with 4 cc of 1% lidocaine with some epinephrine locally. I first placed a needle through the scabbed over area. I got purulent material quickly. I then made an incision about a centimeter long in this area. We evacuated quite a bit of purulent material. There was 1 small dark reddish-black clot that came out. No further bleeding. I attempted to break up loculations but we found none. It was irrigated. I then placed a wick gauze in place and I explained to the patient how to change dressings and care for this. We discussed reasons to return. We discussed dressing changes when the area gets moist. We discussed how to change dressings without pulling the wick out. If he develops fevers chills worsening pain swelling nausea vomiting or any other concerns he should return. We will get him on both cephalexin and Bactrim. Because I believe this is truly painful I will write for some pain meds. I did review the [facility] online prescribing reference. He had 1 prescription for narcotics in December 2020. Procedures Other Procedures Procedure(s): Incision and drainage of left scrotal abscess. See [facility] Discharge Plan Triage Chief Complaint: Male Pain/Injury ED Provider: Yann Cline Dx/Rx/DC Orders Clinical Impression: Abscess of scrotal wall, Encounter for incision and drainage procedure Instructions: ED Abscess Incision And Drainage Prescriptions: New hydrocodone-acetaminophen [hydrocodone-acetaminophen] 5-325 mg tablet 1 tab PO Q4H PRN PRN (Reason: Pain) 2 Days Qty: 6 0RF sulfamethoxazole-trimethoprim [sulfamethoxazole-trimethoprim] 800-160 mg tablet 1 tab PO BID Qty: 20 0RF cephalexin [cephalexin] 500 mg capsule 500 mg PO Q6 Qty: 40 0RF No Action fluoxetine [Prozac] 40 mg capsule 40 mg PO DAILY dextroamphetamine-amphetamine 15 mg capsule,extended release 24hr 15 mg PO DAILY Primary Care Provider: Mark Mercer Referrals: Mark Mercer MD [Primary Care Provider] - As Needed Pelon Posey MD [Med Staff - Active Staff] - 3-5 Days Disposition Disposition: Home, Self Care
[2022-07-17] MEDS: Lidocaine 1% /Epi 1:100 (20ml) 20 ML Vial 10 ML INFILT (04:36)
[2022-07-17] MEDS: Smz/Tmp Ds Tablet 1 TABLET PO (04:39)
[2022-07-17] MEDS: Cephalexin 250 MG Capsule 500 MG PO (04:39)
[2022-07-17 04:47] VITALS: BP 156/79; PULSE 98; RESP 18; O2SAT 100
== END 2022-07-17 04:53 | disposition home or self-care (01) ==
PROVIDERS: Emergency Provider Emergency Medicine; Visit Provider Emergency Medicine
DX: N49.2 Inflammatory disorders of scrotum (principal); N50.812 Left testicular pain
CPT/HCPCS: 55100; 10060; 99283

== ENCOUNTER 2025-01-24 16:14 | Inpatient (IN) | payer MEDICAID, SELFPAY ==
[2025-01-24] VITALS (9 sets, daily range): BP systolic 93–153; BP diastolic 77–94; PULSE 78–127; RESP 15–18; TEMP 36.2–36.6; O2SAT 95–100; BMI 20.8; BMI 20.5
--- NOTE | 2025-01-24 18:04 | EDS_ITS ---
HPI HPI - GI History of Present Illness Chief Complaint: Foreign Body Abdominal Pain/Flank Pain Onset: Days (2-05/16) Context: Gradual Onset Timing: Continuous Quality: Sharp Location: LUQ and LLQ Worsened by: Movement (Bending forward) Relieved by: Nothing Nausea/Vomiting/Emesis GI Symptom: Negative for Nausea or Vomiting Diarrhea/Melena/Hematochezia GI Symptom: Negative for Diarrhea, Melena or Hematochezia Associated Symptoms Associated Symptoms: Negative for Dysuria, Frequency or Hematuria Narrative Narrative: Patient presents with rectal foreign body occurred 2-1/2 days ago. Patient states he inserted a 12 inch dildo up his rectum. Patient states he has been unable to remove it. Patient states pain is worse with bending. Patient denies any rectal bleeding. Patient states he is able to pass gas. Patient denies any nausea or vomiting. Patient denies any urinary complaints. Patient denies any fevers or chills. [facility] Medical History Gross hematuria Non-smoker Migraines Foreign body in urethra, initial encounter Home Medications ?Medication ?Instructions ?Recorded ?Last Taken ?Type NK 01/24/25 Unknown History Allergy/AdvReac Type Severity Reaction Status Date / Time No Known Allergies Allergy Verified 01/24/25 16:15 Surgical History History of appendectomy Social History housing: house Smoking Status: Never smoker ROS ROS ED Constitutional Constitutional ED: Denies chills or fever(s) Eyes Eyes: Denies blurry vision or change in vision ENT ENT ED: Denies rhinorrhea or sore throat Cardiovascular Cardiovascular: Denies chest pain or palpitations Respiratory/Chest Respiratory/Chest: Reports cough; Denies dyspnea Gastrointestinal Gastrointestinal: Denies nausea or vomiting Genitourinary Genitourinary ED: Denies dysuria or hematuria Musculoskeletal Musculoskeletal: Denies back pain or neck pain Integumentary Denies abscess or rash Neurologic Neurologic: Denies headache(s) or weakness Allergic/Immunologic Allergic/Immunologic ED: Denies mouth swelling or urticaria EXAM Physical Exam Const Vital Signs: 01/24/25 16:15 01/24/25 17:17 01/24/25 18:15 Temperature 97.7 F L Temperature Source Temporal Pulse Rate 93 78 Respiratory Rate 18 16 Respiratory Effort Normal Non-Labored Blood Pressure 120/77 134/78 H Blood Pressure Mean 91 96 Pulse Ox 100 98 Oxygen Delivery Method Room Air Room Air 01/24/25 20:00 01/24/25 21:16 01/24/25 22:07 Temperature 97.9 F 97.9 F Temperature Source Pulse Rate 92 84 84 Respiratory Rate 18 15 15 Respiratory Effort Blood Pressure 142/79 H 136/77 H 136/77 H Blood Pressure Mean 100 96 Pulse Ox 97 100 100 Oxygen Delivery Method Room Air Positive well nourished and well developed General Appearance ED: well developed and NAD HEENT Reports moist mucous membranes Neck supple and no JVD Resp normal respiratory effort and clear to auscultation bilaterally Cardio regular rate and regular rhythm GI non-distended Palpation: soft and tender LLQ and LUQ; Negative for guarding or rebound tenderness present Neuro CN's II-XII intact bilaterally, moves all extremities and no sensory deficits noted Sensorium / Orientation: alert Motor Exam: strength 5/5 throughout Psych mental status grossly normal MDM MDM MDM Narrative Medical decision making narrative: Differential diagnosis includes bowel obstruction, perforation, electrolyte abnormality, and retained foreign body. Acute abdominal x-rays will be obtained to assess for retained foreign body, bowel obstruction, and perforation. CBC will be obtained to assess for leukocytosis and anemia. Basic metabolic profile will be obtained to assess for electrolyte abnormality and renal function. Lab Data Attestation: I reviewed the patient's lab results. Lab results narrative: CBC was reviewed and was within normal limits. Basic metabolic profile was reviewed and was within normal limits. Labs: Laboratory Results - last 24 hr 01/24/25 18:30 WBC 10.4 RBC 5.04 Hgb 14.3 Hct 42.8 MCV 84.9 MCH 28.4 MCHC 33.4 RDW Std Deviation 37.4 RDW Coeff of Kenji 12.1 Plt Count 210 MPV 11.3 Immature Gran % (Auto) 0.300 Neut % (Auto) 80.6 H Lymph % (Auto) 9.5 L [place] % (Auto) 8.4 Eos % (Auto) 1.0 Baso % (Auto) 0.2 Absolute Neuts (auto) 8.4 H Absolute Lymphs (auto) 0.99 Nucleated RBC % 0 Sodium 139 Potassium 3.6 Chloride 103 Carbon Dioxide 26.8 Anion Gap 10 BUN 9 Creatinine 0.81 Estim Creat Clear Calc 138.68 Est GFR (MDRD) Non-Af 122 BUN/Creatinine Ratio 11.7 Glucose 94 Calcium 9.2 Radiography Diagnostic Testing: Clinical Impression(s) from Imaging Studies Acute Abdomen Series 01/24/25 18:15 IMPRESSION: Radiodense foreign body projected over the medial left lower abdomen, possibly located in the sigmoid colon. Reading Location: [facility] Acute abdominal x-rays were obtained. There are 4 views. On my independent interpretation, there is a foreign body located in the pelvis and left lower abdomen. There is no free air or air-fluid levels. Radiologist also interpreted the x-rays and agrees. Treatment and Re-Evaluation :: Patient was advised of his findings. Case was discussed with Dr. Cummins from general surgery. He was in to evaluate the patient. He will take the patient to the operating room for foreign body removal. Patient understood and was agreeable with the plan. All questions were answered. Discharge Plan Dx/Rx/DC Orders Clinical Impression: Foreign body anus/rectum, Abdominal pain Disposition Disposition: Acute Care Hospital [facility] Discharge Date/Time: 01/24/25 21:29
--- NOTE | 2025-01-24 18:15 | RAD_ITS ---
PROCEDURE: ACUTE ABDOMEN INC CHEST 01/24/2025 REASON FOR EXAM: PAIN TECHNIQUE: Procedure Code: RADABDCA Modality: DX Procedure: ACUTE ABDOMEN INC CHEST COMPARISON: None. FINDINGS: LUNGS: No focal airspace consolidation. PLEURAL SPACES: No pleural effusion. No pneumothorax. HEART: The heart size is normal. MEDIASTINUM: Unremarkable. PERITONEUM: No appreciable free air. BOWEL: Radiodense object with smooth margins in the medial left lower abdomen measuring approximately 5.9 (diameter) x 9.1 (length) cm. The bowel gas pattern is unremarkable. No bowel obstruction. Moderate stool in the ascending and transverse colon. BONES: No acute osseous abnormality. RAD/Acute Abdomen Inc Chest IMPRESSION: Radiodense foreign body projected over the medial left lower abdomen, possibly located in the sigmoid colon. Reading Location: [id number]
[2025-01-24 19:02] LABS: Anion Gap 10 (5-15); BUN 9 mg/dL (4-19); BUN/Creat Ratio 11.7 RATIO (10-20); Calcium,Total 9.2 mg/dL (7.6-11.0); Carbon Dioxide 26.8 mmol/L (21.0-32.0); Chloride 103 mmol/L (98-108); Estimated Creatinine Clearance 138.68 ml/min (50-250); Glucose 94 mg/dL (70-99); Potassium 3.6 mmol/L (3.3-5.1)
[2025-01-24 19:03] LABS: Hematocrit 42.8 % (40-54); Hemoglobin 14.3 g/dL (13.0-16.5); Immature Granulocytes Count 0.030 X10^3/uL (0.0-0.0); Mean Corp Hgb Conc 33.4 g/dL (32-36); Mean Corpuscular Volume 84.9 fL (80-94); Mean Platelet Vol. 11.3 fl (6.2-12.0); NRBC Flagged by Analyzer 0 % (0-5); Platelet Count 210 K/mm3 (150-450); RBC Distribution Width CV 12.1 % (11.6-14.6); RBC Distribution Width SD 37.4 fl (35.1-43.9); Red Blood Count 5.04 M/mm3 (4.6-6.2); White Blood Count 10.4 K/mm3 (4.4-11.0)
--- NOTE | 2025-01-24 20:27 | PCM.HP.STD ---
HPI - General HPI Narrative DAVID MOJICA, is a 29 M who presents after placing a phallic device in his rectum 2 days ago. He has been unable to retrieve the device. He reports abdominal pain. He says he has been passing gas and had a small bowel movement. He denies nausea or vomiting. He denies fevers or chills. [facility] Medical History Gross hematuria Non-smoker Migraines Foreign body in urethra, initial encounter Home Medications ?Medication ?Instructions ?Recorded ?Last Taken ?Type dextroamphetamine-amphetamine ER 15 mg PO DAILY 05/17/22 Unknown History 15 mg 24hr capsule,extend release fluoxetine 40 mg capsule (Prozac) 40 mg PO DAILY 05/17/22 Unknown History cephalexin 500 mg capsule 500 mg PO Q6 #40 CAPSULES 07/17/22 Unknown Rx hydrocodone-acetaminophen 5-325mg 1 tab PO Q4H PRN PRN Pain 2 days 07/17/22 Unknown Rx 5mg-325mg #6 TABLETS sulfamethoxazole 800 1 tab PO BID #20 TABLETS 07/17/22 Unknown Rx mg-trimethoprim 160 mg tablet Allergy/AdvReac Type Severity Reaction Status Date / Time No Known Allergies Allergy Verified 01/24/25 16:15 Surgical History History of appendectomy Social History housing: house Smoking Status: Never smoker Vital Signs Vital Signs Vital Signs: 01/24/25 16:15 01/24/25 17:17 01/24/25 18:15 Temperature 97.7 F L Temperature Source Temporal Pulse Rate 93 78 Respiratory Rate 18 16 Respiratory Effort Normal Non-Labored Blood Pressure 120/77 134/78 H Blood Pressure Mean 91 96 Pulse Ox 100 98 Oxygen Delivery Method Room Air Room Air Weight Weight: 162 lb 1.6 oz Body Mass Index (BMI) 20.8 Physical Exam Const oriented x3 and no apparent distress Resp normal respiratory effort GI soft to palpation Palpation: tender LLQ and suprapubic Extremity normal to inspection Results Lab / Micro Data 01/24/25 18:30 01/24/25 18:30 Labs: Laboratory Results - last 24 hr 01/24/25 18:30: WBC 10.4, RBC 5.04, Hgb 14.3, Hct 42.8, MCV 84.9, MCH 28.4, MCHC 33.4, RDW Std Deviation 37.4, RDW Coeff of Kenji 12.1, Plt Count 210, MPV 11.3, Immature Gran % (Auto) 0.300, Neut % (Auto) 80.6 H, Lymph % (Auto) 9.5 L, [place] % (Auto) 8.4, Eos % (Auto) 1.0, Baso % (Auto) 0.2, Absolute Neuts (auto) 8.4 H, Absolute Lymphs (auto) 0.99, Nucleated RBC % 0, Sodium 139, Potassium 3.6, Chloride 103, Carbon Dioxide 26.8, Anion Gap 10, BUN 9, Creatinine 0.81, Estim Creat Clear Calc 138.68, Est GFR (MDRD) Non-Af 122, BUN/Creatinine Ratio 11.7, Glucose 94, Calcium 9.2 Imaging Radiology Impression Acute Abdomen Series 01/24/25 18:15 IMPRESSION: Radiodense foreign body projected over the medial left lower abdomen, possibly located in the sigmoid colon. Reading Location: [id number] Assessment & Plan Assessment/Plan (1) Foreign body anus/rectum: PLAN: The patient has a foreign body in his sigmoid colon. He reports that it is approximately 12 inches long. I discussed steps to remove this with him. I will start with a colonoscopy to try to endoscopically remove the device. If I am unable to endoscopically remove the device I will convert to laparotomy and try to push it through distally. If that is unable to be done I will have to perform a colotomy and possible colectomy. I also discussed the possibility of having to perform a colostomy if there is too much stool or necrosis to perform an anastomosis. I discussed the risks of the procedure such as bleeding, infection, perforation of the colon, injury to surrounding organs such as the bladder or small bowel, need for colostomy, need for colectomy. Patient understands the risks and is willing to proceed with surgery. Juan M Cummins MD Pager: [facility] [address] [place] [address], [address] [id number] Office:
--- OUTSIDE RECORDS SUMMARY | 2025-01-24 21:45 | XMS RPT_ITS | CCD ---
Author Organization [facility] Care Team Providers Care Sales Trainer Name Role Phone Crescencio Olson Unavailable Unavailable Crescencio Olson Unavailable Unavailable No Doctor Assigned, Nodr Unavailable Unavail able Crescencio Olson Unavailable Unavailable Crescencio Olson Unavailable Unavailable No Doctor Assigned, Nodr Unavailable Unavail able Nabila Sara Schaefer Unavailable [phone] Mikhail Siddiqui Unavailable Unavailabl e MarcyjaceySara Silvano Unavailable Unavailable Unavailable Naresh Dorado Attending Unavailable Mark Mercer Primary Care Unavailable Mark Mercer [facility] Unavailable Yann Cline Attending Unavailable [facility] Un[facility] Abou Ghrussel, Dr. Calvo Attending Unavailabl e Abou Carol, Dr. Calvo Admitting Unavailabl e [facility] Unavailable Abou Ghrussel, Dr. Calvo Referring Unavailabl e Abou Ghralphda, Dr. Calvo Attending Unavailabl MD CLEMENCIA Wick Attending Unavailable MD CLEMENCIA IRWIN Referring Unavailable [facility] Unavail able Abou Ghrussel, Dr. Calvo Referring Unavailabl e HELLINGER, [facility] Unavail able Abou Ghayda, Dr. Calvo Attending Unavailabl e Abou Ghrussel, Dr. Calvo Referring Unavailabl e Abou Ghralphda, Dr. Calvo Attending Unavailabl e HELLINGER, [facility] Unavail able Abou Ghralphda, Dr. Calvo Referring Unavailabl e Abou Ghrussel, Dr. Calvo Attending Unavailabl e HELLINGER, [facility] Unavail able Abou Ghayda, Dr. Calvo Attending Unavailabl e HELLINGER, [facility] Unavail able Abou Ghralphda, Dr. Calvo Referring Unavailabl e Dr. Cathy Ontiveros Referring Unavailabl e MARCYJACEY, TEJA SARA ALAN Primary Care Unavail able Rajan Medina, Dr. Calvo Attending Unavailabl e Allergies Allergy Classification Reported Allergen(s) Allergy Type Date of Onset Reaction(s) Facility (1 source) No Known Medication Allergies; Translations: [No Known Medication Allergies] Propensity to adverse reactions to drug (disorder) [facility] Repository Medications Current Medications Medication Drug Class(es) Dates Sig (Normalized) Sig (Original) 24 hr amphetamine aspartate 3.75 mg / amphetamine sulfate 3.75 mg / dextroamphetamine saccharate 3.75 mg / dextroamphetamine sulfate 3.75 mg extended release oral capsule (1 source) Central Nervous System Stimulant Start: 05-17-2022 take 15 mg by mouth once daily Dextroamphetamin e-Amphetamine Active 15 MG PO DAILY May 17, 2022 12:00am FLUoxetine 40 mg oral capsule (8 sources) Serotonin Reuptake Inhibitor Start: 05-17-2022 take 40 mg by mouth once daily Fluoxetine Active 40 MG PO DAILY May 17, 2022 12:00am Start: 09-01-2021 take 1 capsule by mo [facility] once daily FLUoxetine HCl - 10 MG Oral Capsule TAKE 1 CAPSULE Daily Quantity: 90 Refills: 3 Ordered: 01-Sep-2021 DO Start : 01-Sep-2021 Active naproxen 500 mg oral tablet (1 source) Nonsteroidal Anti-inflammatory Drug Start: 07-22-2021 End: 07-28-2021 take 1 tablet by mouth twice daily at mealtime naproxen 500 mg oral tablet ; 1 tab(s) orally 2 times a day Quantity: 14 Refills: 0 Ordered: 22-Jul-2021 Mikhail Siddiqui Start: 22-Jul-2021 End: 28-Jul-2021 Generic Substitution Allowed Comments: Check with your doctor before becoming .May cause drowsiness or dizziness.Obtain medical advice before taking any non-prescription drugs as some may affect the action of this medication.Take with food or milk. Comment on above: Check with your doctor before becoming p regnant.May cause drowsiness or dizziness.Obtain medical advice before taking any non-prescription drugs as some may affect the action of this medication.Take with food or milk. Completed/Discontinued Medications Medication Drug Class(es) Dates Sig (Normalized) Sig (Original) oxyCODONE hydrochloride 5 mg oral tablet (1 source) Opioid Agonist Start: 06-04-2019 End: 06-07-2019 take 5 mg by mouth every six hours as needed Oxycodone Discontinued 5 MG PO EVERY 6 HOURS NEEDED 12 3 June 04, 2019 June 07, 2019 12:08am Problems Problem Classification Problem Date Documented Date Episodic/Chronic Abdominal pain (1 source) Abdominal pain; Translations: [Unspecified abdominal pain] Episodic Anxiety disorders (7 sources) Mixed anxiety and depressive disorder; Translations: [Anxiety state, unspecified] Chronic Conditions associated with dizziness or vertigo (2 sources) Dizziness; Translations: [Dizziness and giddiness] Onset: 05-30-2022 Episodic Genitourinary symptoms and ill-defined conditions (1 source) Dominic hematuria; Translations: [Gross hematuria] Episodic Immunizations and screening for infectious disease (1 source) Patient encounter status; Translations: [Encounter for laboratory testing for COVID-19 virus] Episodic Inflammatory conditions of male genital organs (12 sources) Epididymitis; Translations: [Epididymitis] Onset: 07-25-2022 Episodic Nausea and vomiting (1 source) Intractable nausea and vomiting; Translations: [Nausea with vomiting, unspecified] Episodic Nonspecific chest pain (10 sources) Chest pain; Translations: [Chest pain, unspecified] 07-22-2021 Episodic Open wounds of extremities (1 source) Laceration of left forearm; Translations: [Laceration without foreign body of left forearm, initial encounter] Episodic Other circulatory disease (1 source) Elevated blood pressure; Translations: [Elevated blood pressure reading without diagnosis of hypertension] Episodic Other injuries and conditions due to external causes (1 source) Foreign body in urethra; Translations: [Foreign body in urethra, initial encounter] Episodic Other male genital disorders (1 source) Cyst of epididymis; Translations: [Cyst of epididymis] Onset: 07-25-2022 Episodic Other male genital disorders (1 source) Disorder of male genital organs, unspecified; Translations: [Disorder of male genital organs, unspecified] Onset: 07-25-2022 Episodic Residual codes; unclassified (1 source) Pain; Translations: [Pain, unspecified] Episodic Residual codes; unclassified (1 source) Acquired absence of other genital organ(s); Translations: [Acquired absence of other genital organ(s)] Onset: 07-25-2022 Episodic Screening and history of mental health and substance abuse codes (1 source) Personal history of other mental and behavioral disorders; Translations: [History of attention deficit hyperactivity disorder (ADHD)] Episodic Septicemia (except in labor) (1 source) Sepsis; Translations: [Sepsis, unspecified organism] Episodic Unclassified (2 sources) EXAM 07-22-2021 Comment on above: EXAM Results Test Name Value Interpretation Reference Range Facility Office Visit (Urology)on Follow-up visit Diagnoses/Problems Assessed Scrotal abscess (608.4) (N49.2) Non-smoker (V49.89) (Z78.9) Orders Scrotal abscess Follow-up visit in 6 months Outpatient Follow-up 6 MO F/U Status: Hold For - Scheduling,Retrospective By Protocol Authorization Requested for: 01Sep2022 Ordered Stat;For: Scrotal abscess; Ordered By: Cathy Ontiveros Performed: Due: [id number]; Last Updated By: Felipe Gibbs; 09/01/2022 10:38:24 AM Patient Discussion/Summary S/P IANDD Left scrotum abscess 27 year old very pleasant gentleman presents S/P IANDD Left scrotum abscess on 07/29/2022. Drain tube was removed 08/02. We had a very long and extensive discussion with the patient regarding the pathophysiology, differential diagnosis, risk factor, management, natural history, incidence and diagnostic work-up of the condition. Today incision looked well healed. Incision was cleaned with Betadine and patient was instructed he may shower but not soak area. Patient verbalized understanding. Plan Follow up in 6 months By signing my name below, I, Cydney Corado, attest that this documentation has been prepared under the direction and in the presence of Dr. Cathy Medina. All medical record entries made by the Cydney were at my direction and personally dictated by me. I have reviewed the chart and agree that the record accurately reflects my personal performance of the history, physical exam, discussion and plan. Chief Complaint 1 MO F/U History of Present IllnessPatient presents to the office today for a 1 MO F/U. Hx of scrotal abscess. S/P I ANDDL scrotum abscess 07/29/22. Drain tube was removed 08/02. Pt states he has had no issues since having drain tube removed. No pain. Renal US(07/25/2022)...incision is healing well. no drainage, no pain. Review of Systems Constitutional: No fever, No chills Eye: Glasses Respiratory: No shortness of breath, No cough. Cardiovascular: No chest pain Gastrointestinal: No nausea Genitourinary: Negative except as documented in history of present illness. Hematology/Lymphatics: Patient denies being on blood thinners.. Endocrine: Negative. Immunologic: Not immunocompromised. Musculoskeletal: negative Integumentary: Negative. Neurologic: Alert and oriented X4. Psychiatric: Negative. Active Problems Problems Anxiety and depression (300.00,311) (F41.9,F32.A) Atypical chest pain (786.59) (R07.89) Elevated blood pressure reading (796.2) (R03.0) Scrotal abscess (608.4) (N49.2) Surgical History Problems History of Appendectomy History of Leg surgery History of Scrotal surgery Family History Mother Family history of Primary malignant neoplasm of female breast Father Family history of hyperlipidemia (V18.19) (Z83.438) Family history of Heart problem Social History Problems Consumes alcohol occasionally (V49.89) (Z78.9) Daily caffeinated coffee consumption No illicit drug use Non-smoker (V49.89) (Z78.9) Allergies Medication No Known Drug Allergies Recorded By: Ana Langston; 09/01/2021 11:34:08 AM Current Meds Medication NameInstruction FLUoxetine HCl - 10 MG Oral CapsuleTAKE 1 CAPSULE Daily Vitals Vital Signs Recorded: [id number] 10:27AM Heart Rate75 Xtxiouvx004 Suapvwcou08 Pqrmhu365 lb 0.6 oz BMI Ruxrayhkmz68.57 kg/m2 BSA Calculated2.02 Tobacco Useb) No PHQ-2 Patient Declined/Screening not indicatedYes Falls Screening (Age 18+)a) No falls within the last year Physical Exam General: Well developed, well nourished, alert and cooperative, appears in no acute distress Eyes: Non-injected conjunctiva, sclera clear, no proptosis Cardiac: Extremities are warm and well perfused. No edema, cyanosis or pallor Lungs: Breathing is easy, non-labored. Speaking in clear and complete sentences. Normal diaphragmatic movement MSK: Ambulatory with steady gait, unassisted Neuro: Alert and oriented to person, place, and time Psych: Demonstrates good judgment and reason, without hallucinations, abnormal affect or abnormal behaviors Skin: No obvious lesions, no rashes No CVA tenderness bilaterally No suprapubic pain or discomfort well healing incision, no tenderness Signatures Electronically signed by : Cathy Medina MD MPH; Sep 01 2022 10:45AM EST (Author) Normal [facility] Tobacco Screening.on 023 Fall risk assessment a) No falls within the last year [facility] Work Phone: Tobacco use status [facility] b) No [facility] Work Phone: Tobacco Screening. Yes [facility] Work Phone: Office Visit (Cardiology)on 08-31-2022 Follow-up visit Diagnoses/Problems Assessed Elevated blood pressure reading (796.2) (R03.0) Orders Atypical chest pain IO EKG Electrocardiogram- 12 Lead; Status:Complete; Done: 31Aug2022 Chief Complaint Chest discomfort History of Present Urfctpl72-iyxu-qmk gentleman who was recently evaluated in the emergency department for chest discomfort; in the setting of receiving his COVID booster vaccine Chest pressure -started 90 minutes after receiving his COVID booster vaccine. Lasted 24-48 hours. Described as sharp and severe; unremitting chest discomfort with no relief with position/palpation/respira tion -Pain has since resolved. With activities of daily living he denies any chest discomfort or shortness of breath. Denies any orthopnea/PND/lower extremity edema. Denies any dizziness/lightheadedness. EKG notes normal sinus rhythm with early repolarization changes. Echocardiogram performed 07/22/2021 notes no evidence of myopericarditis troponin was negative on that ER visit on July 22. Has not had any recurrent symptoms in the last year. Notably blood pressure mildly elevated in clinic today. Active Problems Problems Anxiety and depression (300.00,311) (F41.9,F32.A) Atypical chest pain (786.59) (R07.89) Scrotal abscess (608.4) (N49.2) Surgical History Problems History of Appendectomy History of Leg surgery History of Scrotal surgery Current Meds Medication NameInstruction FLUoxetine HCl - 10 MG Oral CapsuleTAKE 1 CAPSULE Daily Allergies Medication No Known Drug Allergies Recorded By: Ana Langston; 09/01/2021 11:34:08 AM Family History Mother Family history of Primary malignant neoplasm of female breast Father Family history of hyperlipidemia (V18.19) (Z83.438) Family history of Heart problem Social History Problems Consumes alcohol occasionally (V49.89) (Z78.9) Daily caffeinated coffee consumption No illicit drug use Non-smoker (V49.89) (Z78.9) Review of Systems Constitutional: Denies any fever or chills Eyes: Denies any eye pain or blurry vision ENT: Denies any ear pain or hearing loss Cardiovascular: The heart rate is not slow, the heart rate is not fast Respiratory: Denies any asthma/wheezing Gastrointestinal: Denies any praveen colored stools or fatty food intolerance Genitourinary: Denies any blood in the urine or pelvic pain Musculoskeletal: Denies any swelling in the joints or difficulty walking Skin: Denies any skin lumps or skin lesions Neurological: Denies any dizziness/tingling Vitals Vital Signs Recorded: 31Aug2022 11:15AM Heart Rate80 Hatpkbcg150 Pmyfzstvv86 Height6 ft 2 in Bybaoz030 lb 5 oz BMI Uelkkettnk69.87 kg/m2 BSA Calculated2.03 Tobacco Useb) No Falls Screening (Age 18+)a) No falls within the last year O2 Pmkdoquewd92 Physical Exam General: AANDOx3 HEENT: NC/AT; EOMI; PERRLA, external ear is normal Neck: supple; no JVD Chest: CTAB; no wheezing CVS: S1S2 normal, no murmurs Abdomen: Soft, NT/ND, no organomegaly Extremities: no clubbing/cyanosis/edema Neuro: Grossly intact Results/Data Electrocardiogram 12 Tplp80Ycs5514 04:40PMNon Ambulatory, Provider Test NameResultFlagReference Ventricular Rate77 Atrial Rate77 [place]-Qzxuuwxs109 QRS Hqqecdsc61 Q-T Upmrmoay132 QTC Vkchakrhhxu655 P Axis77 Diagnosis Please see physician note for formal interpretation confirmed by Scribe R Axis61 T Axis52 QRS Count13 Q Ybxbm445 P Affzb716 P Ycdbri097 T Rzmmhk012 QTC Iyixxwwaso307 MUSEIMAGE [email or web address]?R etrieveTestByDateTime?Janessa uitBS=[id number]=10- 03-2022ANDTime=16%3a40%3a5 6%0e12GLQTkqaSiue=DTXFHRGg te=14ANDOutputType=PDFANDE xt=PDF Diagnosis ClassNormal Troponin I, [id number] 04:16PMNon Ambulatory, Provider Ordering Provider: MIKHAIL SIDDIQUI [id number] Test NameResultFlagReference Troponin I, Serum<0.02 ng/mLSee Below Reference Range: 0.00 - 0.03 LESS THAN 0.04 NG/ML: NEGATIVE REPEAT TESTING IN THREE TO SIX HOURS IF CLINICALLY INDICATED. 0.04 - 0.5 NG/ML: CONSISTENT WITH POSSIBLE CARDIAC DAMAGE AND POSSIBLE INCREASED CLINICAL RISK. SERIAL MEASUREMENTS MAY HELP ASSESS EXTENT OF MYOCARDIAL DAMAGE. >0.5 NG/ML: CONSISTENT WITH CARDIAC DAMAGE, INCREASED CLINICAL RISK AND MYOCARDIAL INFARCTION. SERIAL MEASUREMENTS MAY HELP ASSESS EXTENT OF MYOCARDIAL DAMAGE. . Note: Troponin I testing is performed using different testing methodology at [facility] than at [facility]. Direct result comparisons should only be made within the same method. Rzydnbyjzufjbl93Fpz2140 03:51PMNon Ambulatory, Provider Test NameResultFlagReference Echocardiogram(Report) [place] [address] ext-[phone], TRANSTHORACIC ECHOCARDIOGRAM REPORT Patient Name: DAVID Hart Reading Physician: [id number] Taran Deleon MD Study Date: 07/22/2021 Referring [id number] NAYELY OLVERA Physician: MRN/PID: [id number] PCP: (more content not included)... [facility] Tobacco Screening.on 023 Fall risk assessment a) No falls within the last year [facility]lnjxdd[facility] [facility] Work Phone: Tobacco use status [facility] b) No [facility]Zppadpa[facility] Work Phone: Office Visit (Urology)on Follow-up visit Diagnoses/Problems Assessed Scrotal abscess (608.4) (N49.2) Patient Discussion/Summary S/P IANDD Left scrotum abscess 27 year old very pleasant gentleman presents S/P IANDD Left scrotum abscess on 07/29/2022. Drain tube was removed 08/02. We had a very long and extensive discussion with the patient regarding the pathophysiology, differential diagnosis, risk factor, management, natural history, incidence and diagnostic work-up of the condition. Today incision looked well healed and remaining two sutures were removed. Incision was cleaned with Betadine and patient was instructed he may shower but not soak area. Patient verbalized understanding. Plan No soaking, showers okay Clean incision once daily with iodine swab for 1 week Follow up in 1 month By signing my name below, I, Cydney Corado, attest that this documentation has been prepared under the direction and in the presence of Dr. Cathy Medina. All medical record entries made by the Dhavalibhuey were at my direction and personally dictated by me. I have reviewed the chart and agree that the record accurately reflects my personal performance of the history, physical exam, discussion and plan. Chief Complaint surgery f/u History of Present IllnessHx of scrotal abscess. S/P I ANDDL scrotum abscess 07/29/22. Drain tube was removed 08/02. Pt does still have packing. Pt states he has had no issues since having drain tube removed. No pain. Review of Systems Eye: glasses Respiratory: No shortness of breath, No cough. Cardiovascular: No chest pain Gastrointestinal: No nausea Genitourinary: Negative except as documented in history of present illness. Hematology/Lymphatics: Patient denies being on blood thinners.. Endocrine: Negative. Immunologic: Not immunocompromised. Musculoskeletal: negative Integumentary: Negative. Neurologic: Alert and oriented X4. Psychiatric: Negative. Active Problems Problems Anxiety and depression (300.00,311) (F41.9,F32.A) Atypical chest pain (786.59) (R07.89) Scrotal abscess (608.4) (N49.2) Surgical History Problems History of Appendectomy History of Leg surgery Family History Mother Family history of Primary malignant neoplasm of female breast Father Family history of hyperlipidemia (V18.19) (Z83.438) Family history of Heart problem Social History Problems Consumes alcohol occasionally (V49.89) (Z78.9) Daily caffeinated coffee consumption Non-smoker (V49.89) (Z78.9) Allergies Medication No Known Drug Allergies Recorded By: Ana Langston; 09/01/2021 11:34:08 AM Current Meds Medication NameInstruction FLUoxetine HCl - 10 MG Oral CapsuleTAKE 1 CAPSULE Daily Vitals Vital Signs Recorded: 04Aug2022 11:01AM Heart Rate82 Cjhcyfqg614 Wsanublaz72 Gbqccf173 lb 4 oz BMI Xlhnmzhtha78.86 kg/m2 BSA Calculated2.03 Tobacco Useb) No PHQ-2 Patient Declined/Screening not indicatedYes Falls Screening (Age 18+)a) No falls within the last year Physical Exam General: Well developed, well nourished, alert and cooperative, appears in no acute distress Eyes: Non-injected conjunctiva, sclera clear, no proptosis Cardiac: Extremities are warm and well perfused. No edema, cyanosis or pallor Lungs: Breathing is easy, non-labored. Speaking in clear and complete sentences. Normal diaphragmatic movement MSK: Ambulatory with steady gait, unassisted Neuro: Alert and oriented to person, place, and time Psych: Demonstrates good judgment and reason, without hallucinations, abnormal affect or abnormal behaviors Skin: No obvious lesions, no rashes No CVA tenderness bilaterally No suprapubic pain or discomfort Well healing incision - no signs of infection Signatures Electronically signed by : Cathy Medina MD MPH; Aug 04 2022 11:19AM EST (Author) Normal [facility] Tobacco Screening.on 023 Fall risk assessment a) No falls within the last year [facility] Work Phone: Tobacco use status [facility] b) No OF-Xcuhfkv[facility] Work Phone: Tobacco Screening. Yes MP-[facility]ro logy[facility] Work Phone: Cult, Misc + smearon 023 Bacteria identified Cx Nom (Unsp spec) Abnormal CB-Xhqqyiv[facility] Work Phone: MISCELLANEOUS CULT./SM.BACT. on 07-29-2022 MISCELLANEOUS CULT./SM.BACT. PATIENT: DAVID NOLASCO LOCATION: [facility] BILL#: [id number] : 89 AGE: SEX: M ORDERED BY: CATHY ONTIVEROS SOURCE: WOUND/ABSCESS COLLECTED: 07/29/22 11:50 ANTIBIOTICS AT DANNY.: RECEIVED : 07/30/22 01:21 SITE: LEFT SCROTAL ABCESS R E S U L T S GRAM STAIN FINAL 07/30/22 07:37 NO GRANULOCYTES OR ORGANISMS SEEN. MISCELLANEOUS CULT./SM.BACT. FINAL 08/03/22 08:55 1+ANAEROBIC MIXED BACTERIA INCLUDING BETA LACTAMASE POSITIVE ORGANISMS. ISOLATE1 : Enterococcus faecalis 1+ NO HIGH LEVEL GENTAMICIN RESISTANCE DETECTED Organism Ec faecalis Antibiotic BP INTRP Ampicillin S Gent Synergy S Penicillin S Vancomycin S S=SUSCEPTIBLE I=INTERMEDIATE R=RESISTANT SDD=SUSCEPTIBLE DOSE DEPENDENT NS=NONSUSCEPTIBLE X=REPORTED IN ERROR [facility] Comment on above: Performed By: #### [facility] #### [facility] [address] [place] [address] No Panel Informationon 07-29 LB-Fnkiwke[facility] Work Phone: Order Reconciliationon 07-29 Order Reconciliation Page 1 Discharge Reconciliation Document Reconciliation Type: Discharge requested on behalf of Cathy Ontiveros (Physician) done by Cathy Ontiveros) Discharge - Reconciliation: 29-Jul-2022 10:39 by: Cathy Ontiveros) Home Medications EnteredHOME MEDICATIONS AT DISCHARGE DateReconciliation Comment/ Additional Information PROzac 10 mg oral tablet 1 tab(s) orally once a day 29-Jul-2022 10:33 PROzac 10 mg oral tablet 1 tab(s) orally once a day 29-Jul-2022 10:33 PROzac 10 mg oral tablet is continued as PROzac 10 mg oral tablet Current OrdersDateHOME MEDICATIONS AT DISCHARGE DateReconciliation Comment/ Additional Information ceFAZolin 2 gram/ D5W 100 mL Premix IVPB (ANCEF)OnceRecommended Infusion Time: 30 minute(s)Clinician Notes: Administer within 60 minutes of incision. 29-Jul-2022 07:53 ceFAZolin 2 gram/ D5W 100 mL Premix IVPB is not required dexAMETHasone Injectable (DECADRON)DOSE = 6 mg IntraVenous Push OnceClinician Notes: acs-preop 29-Jul-2022 10:03 dexAMETHasone Injectable is not required HYDROmorphone Injectable (DILAUDID)DOSE = 0.5 mg IntraVenous Push Every 5 Minutes, PRN Pain - Mod (4-6) (PACU)Clinician Notes: Katelyn-operative order ONLYMax total of 4 mg regardless of dose. 29-Jul-2022 10:03 HYDROmorphone Injectable is not required Lactated Ringers Infusion IV Bag Volume = 1,000 mL Run at: 100 mL/hr IntraVenous Clinician Notes: Katelyn-operative order ONLY 29-Jul-2022 10:03 Lactated Ringers Infusion is not required Midazolam Injectable (VERSED)DOSE = 2 mg IntraVenous Push Once, PRN AnxietyClinician Notes: acs-preop 29-Jul-2022 10:03 Midazolam Injectable is not required Naloxone Injectable (NARCAN)DOSE = 0.2 mg IntraVenous Push Once, PRN If patient RR below 10, obtunded or unarousableClinician Notes: DO NOT ADMINISTER UNTIL PHYSiCIAN HAS BEEN NOTIFIED AND ASSESSED PATIENT 29-Jul-2022 10:03 Naloxone Injectable is not required Ondansetron Injectable (ZOFRAN)DOSE = 4 mg IntraVenous Push Once, PRN PONV, first lineClinician Notes: acs-preop 29-Jul-2022 10:03 Ondansetron Injectable is not required oxyCODONE Immediate Release Tablet (OXYIR, ROXICODONE)DOSE = 5 mg Oral Every 4 Hours, PRN Pain - Mild (1-3) (PACU) when able to take OralClinician Notes: Katelyn-operative order ONLY 29-Jul-2022 10:03 oxyCODONE Immediate Release is not required Home Medications Added During Discharge Reconciliation amoxicillin-clavulanate 875 mg-125 mg oral tablet 1 tab(s) orally 2 times a day Call Physician For: excessive bleeding (slow general oozing that completely soaks dressing or fresh bright red bleeding) or bleeding that will not stop. Apply pressure to the area and elevate. Call Physician For: inability to urinate every 8-12 hours and your bladder becomes too full or painful. Call Physician For: persistant nausea and/or vomiting Over 24 hours Call Physician For: signs and sypmtoms of infection Increased redness or swelling at incision site, increased pain/tenderness at surgical site, increased temperature greater than 100 degress, increasing and/or progressive drainage from surgical site, and/or unusual odor from surgical site. Diet Regular Discharge Discharge Diagnosis< N49.2 Scrotal abscess Discharge Provider, Cathy Ontiveros Discharge Disposition : .Home Condition at Discharge: Satisfactory Discharge Communication Instructions for Nursing Only: Remove IV prior to discharge from hospital. Do not remove any midline, if present, without an order from the provider. Discharge Instructions - PHR After your discharge from the hospital, two Summary of Care Documents will be available online in your Personal Health Record (PHR). 1.Consolidated-Clinical Document Architecture (C-CDA) Patient Discharge Summary This document is a summary of your hospital stay to be kept for your reference.2.C-CDA Visit Summary This document is a summary of your hospital stay to be shared with your follow-up providers (doctor, temperature regulator pyrometer, physical therapist, etc.). Follow Up with Dr. Medina in 1 Weeks In the office on 08/04/22 Tylenol 8 Hour 650 mg oral tablet, extended release 2 tab(s) orally 2 times a day, As Needed All Active Home Medications at time of Discharge Reconciliation: 29-Jul-2022 10:39 amoxicillin-clavulanate 875 mg-125 mg oral tablet 1 tab(s) orally 2 times a day Call Physician For: excessive bleeding (slow general oozing that completely soaks dressing or fresh bright red bleeding) or bleeding that will not stop. Apply pressure to the area and elevate. Call Physician For: inability to urinate every 8-12 hours and your bladder becomes too full or painful. Call Physician For: persistant nausea and/or vomiting Over 24 hours Call Physician For: signs and sypmtoms of infection Increased redness or swelling at incision site, increased pain/tenderness at surgical site, increased temperature greater than 100 degress, increasing (more content not included)... Normal [facility] Patient Profile - Preop v3on 07-29-2022 Patient Profile - Preop v3 Patient Profile - Preop: Initial Info: Patient DemographicsName: DAVID NOLASCO Date: 1995 Address: [address] [place] [address] Primary Phone [phone] How to be AddressedTed Spoken Language PreferredEnglish Stated Reason for Admissionabscess on my scrotum fixed Primary Contact Name and [id number] Medications Brought to Hospitalno General Health: Weight in kg77.7 kilogram(s) Weight in yvr817.2 pound(s) Weight Methodactual (measured) Scale Typestanding Height in feet6 feet Height in inches3.94 inch(es) Height in cm192.8 centimeter(s) Height Methodstated BMI (kg/m2)20.902 square meter Patient or Family Member Reaction to Anesthesiano previous reaction Blood Avoidance/Restrictionsnone Previous Transfusion Reactionnot applicable Health Mgmt: Symptoms/Conditions Managed at [facility] Barriers to Managing Healthnone Relationship/Environ: Lives Withalone Living Arrangementshouse Resource/Environmental Concernsnone Anticipated Transition [facility] Anticipated at Transitionnone Tobacco Use: Tobacco Useno Pre-op Checklist: Arrival [id number] Arrival Time10:03 Procedure Typeincision and drainage scrotal abscess on left side NPOyes Last Food [id number] 23:59 Last Clear Fluid [id number] 23:59 ID Band On Patientpatient ID (name) Consent Signedyes H&P Completeyes Anesthesia Assessment Completedyes EKG Performednot ordered Chest X-Ray Performednot ordered Preop Antibioticsstarted in preop Chlorhexadine Bath Givennot applicable Nasal Antiseptic Appliednot applicable Soap and Water Bath the Night Before Surgerynot applicable Hair Washed with Shampoonot applicable Bowel Prepno Surgical Site Infection Preventionyes Pain Scales and Managementyes Additional Information: Information Review: Allergies, Home Meds and Significant Events have been Reviewed and Verified with Patient/Familyyes Allergy, Intolerance, Adverse Event: Allergies: Allergy Status Unknown: Active Electronic Signatures: Emily Johnson) (Signed 29-Jul-2022 10:27) Authored: Initial Info, General Health, Health Mgmt, Relationship/Environ, Tobacco Use, Pre-op Checklist, Additional Information Last Updated: 29-Jul-2022 10:27 by Emily Johnson) [facility] Surgical Pathology Depar [facility] 07-29-2022 [facility] Surgical Pathology Department Name DAVID NOLASCO Pathologist: SONU DE OLIVEIRA M.D. Date of Procedure: 07/29/2022 Date Received: 07/29/2022 Date Reported 08/16/2022 Submitting Physician: CATHY MEDINA MD, MPH Location: [facility] Other External # FINAL DIAGNOSIS A. LEFT SCROTAL ABSCESS, EXCISION: -- FRAGMENTS OF FIBROUS TISSUE WITH ACUTE AND CHRONIC INFLAMMATION ASSOCIATED WITH FOCAL ABSCESS FORMATION. Electronically Signed Out By SONU DE OLIVEIRA M.D./AILEEN By the signature on this report, the individual or group listed as making the Final Interpretation/Diagnosis certifies that they have reviewed this case. Diagnostic interpretation performed at [address] [address] Clinical History: Physician Contact Number: [phone] Fixative (A): Formalin Clinical Diagnosis History N49.2 Inflammatory disorders of scrotum Specimens Submitted As: A: LEFT SCROTAL ABSCESS Gross Description: Received in formalin, labeled with the patient's name and hospital number and left scrotal abscess, are two fragments of firm espinosa-brown tissue aggregating to 2.5 x 1.9 x 1.9 cm. Serial sectioning reveals a heterogeneous espinosa-white, sglh-cg-ukgy cut surface. [employer] sections are submitted in one cassette. HHD hhd/08/11/2022 [facility] Department of Pathology [address] [place] [address] Normal [facility] Comment on above: Performed By: #### [facility] #### [facility] Surgical Pathology Department [id number] [facility] [address] Office Visit (Urology)on Follow-up visit Diagnoses/Problems Assessed Scrotal abscess (608.4) (N49.2) Patient Discussion/Summary Left Scrotal Wall Abscess, hx of left orchiectomy for refractory orchitis 27 year old very pleasant gentleman with hx of left orchiectomy 4 years ago presents for follow up on scrotal Wall Abscess for 2 weeks prior to presentation that has improved with antibiotic. We had a very long and extensive discussion with the patient regarding the pathophysiology, differential diagnosis, risk factor, management, natural history, incidence and diagnostic work-up of the condition. Upon physical exam there was a hard nodule present on left scrotum with erythema present. We discussed the need for scrotal US to rule out any abnormality. Recent US showed around 3 cm left scrotal abscess. We had a very long and extensive discussion with the patient regarding the pathophysiology, differential diagnosis, risk factor, management, natural history, incidence and diagnostic work-up of the condition. Discussed option of management including observation with oral Abx or surgical exploration and IANDD of his left scrotal abscess. He wants to proceed with surg. All risks , benefits, side effects, adverse events explained to the pt. ehe verbalized understanding and would like to proceed. Plan Rush schedule Surg for IANDD and scrotal exploration left. Chief Complaint SCROTAL U/S History of Present IllnessPt was seen monday for Scrotal Wall Abscess x 2 week, pain ,left side, radiating left scrotum, no f/c, no n/v, no constipation..Pt did have a recent U/S done which did show 2.4cm left scrotal wall complex lesion with hyperemia suspicious for abscess..patient states he took out the packing after two days...Patient states there is still a lump there... LUTs are chronic and mild. Denies frequency and urgency. Denies dysuria and hematuria.. Nocturia x1.. Caffeine does worsen LUTs.. 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 yellow discharge from it initially, now improved. Review of Systems Eye: glasses Respiratory: No shortness of breath, No cough. Cardiovascular: No chest pain Gastrointestinal: No nausea Genitourinary: Negative except as documented in history of present illness. Hematology/Lymphatics: Patient denies being on blood thinners.. Endocrine: Negative. Immunologic: Not immunocompromised. Musculoskeletal: negative Integumentary: Negative. Neurologic: Alert and oriented X4. Psychiatric: Negative. Active Problems Problems Anxiety and depression (300.00,311) (F41.9,F32.A) Atypical chest pain (786.59) (R07.89) Scrotal abscess (608.4) (N49.2) Surgical History Problems History of Appendectomy History of Leg surgery Family History Mother Family history of Primary malignant neoplasm of female breast Father Family history of hyperlipidemia (V18.19) (Z83.438) Family history of Heart problem Social History Problems Consumes alcohol occasionally (V49.89) (Z78.9) Daily caffeinated coffee consumption Non-smoker (V49.89) (Z78.9) Allergies Medication No Known Drug Allergies Recorded By: Ana Langston; 09/01/2021 11:34:08 AM Current Meds Medication NameInstruction FLUoxetine HCl - 10 MG Oral CapsuleTAKE 1 CAPSULE Daily Vitals Vital Signs Recorded: 28Jul2022 01:58PM Heart Rate80 Xpsmyoxg061 Sxlherbyn63 Syidtt454 lb 4 oz BMI Nyhzsmiich28.73 kg/m2 BSA Calculated2.02 Tobacco Useb) No PHQ-2 Patient Declined/Screening not indicatedYes Falls Screening (Age 18+)a) No falls within the last year Physical Exam General: Well developed, well nourished, alert and cooperative, appears in no acute distress Eyes: Non-injected conjunctiva, sclera clear, no proptosis Cardiac: Extremities are warm and well perfused. No edema, cyanosis or pallor Lungs: Breathing is easy, non-labored. Speaking in clear and complete sentences. Normal diaphragmatic movement MSK: Ambulatory with steady gait, unassisted Neuro: Alert and oriented to person, place, and time Psych: Demonstrates good judgment and reason, without hallucinations, abnormal affect or abnormal behaviors Skin: No obvious lesions, no rashes No CVA tenderness bilaterally No suprapubic pain or discomfort hard nodule present on left scrotum - erythema present Signatures Electronically signed by : Cathy Medina MD MPH; Jul 29 2022 8:07AM EST (Author) Normal [facility] Tobacco Screening.on 023 Fall risk assessment a) No falls within the last year OW-Rszflwt[facility]Rk [facility] Work Phone: Tobacco use status CPHS b) No RF-Qglnbwe-Gb [facility] Work Phone: Tobacco Screening. Yes MP-Uro logy[facility] Work Phone: Office Visit (Urology)on Follow-up visit Diagnoses/Problems Assessed Non-smoker (V49.89) (Z78.9) Scrotal abscess (608.4) (N49.2) Orders Scrotal abscess Ultrasound Scrotum Without Dopplers; Status:Active; Requested for:25Jul2022; Perform: Radiology Services Imaging; Due:23Oct2022;Ordered; Stat; For:Scrotal abscess; Ordered By:Cathy Ontiveros; Radiologist to Determine Optimal Study : Y What are the patient's signs and symptoms? : Scrotal Abscess Follow-up visit in 1 week Outpatient Follow-up 1 Week F/U w/Scrotal US Status: Hold For - Scheduling Requested for: 25Jul2022 Ordered Stat;For: Scrotal abscess; Ordered By: Cathy Ontiveros Performed: Due: 23Oct2022 Patient Discussion/Summary Left Scrotal Wall Abscess, hx of left orchiectomy for refractory orchitis 27 year old very pleasant gentleman with hx of left orchiectomy 4 years ago presents for follow up on scrotal Wall Abscess for 2 weeks prior to presentation that has improved with antibiotic. We had a very long and extensive discussion with the patient regarding the pathophysiology, differential diagnosis, risk factor, management, natural history, incidence and diagnostic work-up of the condition. Upon physical exam there was a hard nodule present on left scrotum with erythema present. We discussed the need for scrotal US to rule out any abnormality. We discussed lifestyle modifications in the form of ice packing. Patient verbalized understanding and wishes to proceed. Plan Continue antibiotic prescribed by ER ice packing STAT scrotal US Follow up in 1 week If development of fever or chills, proceed to the ER By signing my name below, I, Cydney Corado, attest that this documentation has been prepared under the direction and in the presence of Dr. Cathy Medina. All medical record entries made by the Dhavalibhuey were at my direction and personally dictated by me. I have reviewed the chart and agree that the record accurately reflects my personal performance of the history, physical exam, discussion and plan. Chief Complaint Establishing with Scrotal Wall Abscess History of Present IllnessPatient presents to the office today to Establish with Scrotal Wall Abscess x 2 week, pain ,left side, radiating left scrotum, no f/c, no n/v, no constipation, 6/10, burning in nature .....patient states he took out the packing after two days...Patient states there is still a lump there... LUTs are chronic and mild. Denies frequency and urgency. Denies dysuria and hematuria.. Nocturia x1.. Caffeine does worsen LUTs.. 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 yellow discharge from it initially, now improved. still taking antibiotic (unsure of name). non tender. denies any fever or chills, n/v. stomach upset from antibiotic. Review of Systems Constitutional: No fever, No chills Eye: Glasses Respiratory: No shortness of breath, No cough. Cardiovascular: No chest pain Gastrointestinal: No nausea Genitourinary: Negative except as documented in history of present illness. Hematology/Lymphatics: Patient denies being on blood thinners.. Endocrine: Negative. Immunologic: Not immunocompromised. Musculoskeletal: Negative Integumentary: Negative. Neurologic: Alert and oriented X4. Psychiatric: Negative. Active Problems Problems Anxiety and depression (300.00,311) (F41.9,F32.A) Atypical chest pain (786.59) (R07.89) Surgical History Problems History of Appendectomy History of Leg surgery Family History Mother Family history of Primary malignant neoplasm of female breast Father Family history of hyperlipidemia (V18.19) (Z83.438) Family history of Heart problem Social History Problems Consumes alcohol occasionally (V49.89) (Z78.9) Daily caffeinated coffee consumption Non-smoker (V49.89) (Z78.9) Allergies Medication No Known Drug Allergies Recorded By: Ana Langston; 09/01/2021 11:34:08 AM Current Meds Medication NameInstruction FLUoxetine HCl - 10 MG Oral CapsuleTAKE 1 CAPSULE Daily Vitals Vital Signs Recorded: 25Jul2022 11:50AM Heart Rate78 Phkhwwxk288 Pzfaeghen47 Utehkb261 lb 0.6 oz BMI Fcskibzapo94.96 kg/m2 BSA Calculated2.03 Tobacco Useb) No PHQ-2 Patient Declined/Screening not indicatedYes Falls Screening (Age 18+)a) No falls within the last year Physical Exam General: Well developed, well nourished, alert and cooperative, appears in no acute distress Eyes: Non-injected conjunctiva, sclera clear, no proptosis Cardiac: Extremities are warm and well perfused. No edema, cyanosis or pallor Lungs: Breathing is easy, non-labored. Speaking in clear and complete sentences. Normal diaphragmatic movement MSK: Ambulatory with steady gait, unassisted Neuro: Alert and oriented to person, place, and time Psych: Demonstrates good judgment and reason, without hallucinations, abnormal affect or abnormal behaviors Skin: No obvious lesions, no rashes No CVA tenderness bilaterally No suprapubic pain or d (more content not included)... Normal [facility] 07-25-2022 US.doppler Scrotum and testicle Normal [facility]Jmvcb[facility] Work Phone: Tobacco Screening.on 023 Fall risk assessment a) No falls within the last year RN-Njzwxuj-We [facility] Work Phone: Tobacco use status CPHS b) No SK-Czveytv[facility]Ur [facility] Work Phone: Tobacco Screening. Yes MP-Uro logy[facility] Work Phone: US SCROTUM WITH DOPPLERSon 0 07-25-2022 US SCROTUM WITH DOPPLERS Patient Name: DAVID NOLASCO STUDY: US SCROTUM WITH DOPPLERS; 07/25/2022 2:49 pm INDICATION: Scrotal Abscess N49.2: Scrotal abscess. COMPARISON: None. ACCESSION NUMBER(S): [id number] ORDERING CLINICIAN: CATHY SANCHEZ TECHNIQUE: Multiple ultrasonographic images of scrotum and tested were obtained. FINDINGS: RIGHT HEMISCROTUM: No hydrocele, varicocele or mass is demonstrated. RIGHT TESTICLE: The right testicle measures 5.5 x 2.6 x 3.1 cm. The right testicle demonstrates a normal homogeneous echotexture and normal contour. Normal vascularity and Doppler waveforms are observed in the right testicle. RIGHT EPIDIDYMIS: The right epididymal head measures 2.0 x 2.0 x 2.2 cm. It is mostly occupied by a 1.5 x 1.1 x 1.3 cm anechoic cyst with far acoustic enhancement. A tiny hyperechoic focus is probably a wall calcification. LEFT HEMISCROTUM: A 24 x 7 x 18 mm lobular complex lesion in a thickened left scrotal wall where the patient describes a lump has many thin septations and anechoic to almost anechoic compartments. Color Doppler shows surrounding hyperemia. This is consistent with the history of an abscess. No free scrotal fluid is apparent. LEFT TESTICLE: Status post left orchiectomy by history. LEFT EPIDIDYMIS: Not visible and presumably removed. IMPRESSION: 2.4 cm left scrotal wall complex lesion with hyperemia suspicious for an abscess. Status post left orchiectomy. Normal right testicle. 1.5 cm right epididymal head cyst. Electronically signed by: MARIN BENNETT MD [facility] Emergency Department Summary on 07-17-2022 Emergency Department Summary [facility] Medical Records Department [address] [place] [address] Emergency Department Summary 07/17/22 MR#: [id number] Acct: [id number] Name: DAVID MOJICA Rep #: [id number] : 1995 27 From: Yann Cline MD PCP: Dr. Mark Mercer MD Status:[facility] ER Location: ED HPI History of Present Illness Chief Complaint: Male Pain/Injury Informant: patient Narrative Narrative: Patient presents with pain in his left testicle area. He states it started 2 or maybe 3 days ago. It burning itches and stings. It is turned red. He denies any trouble urinating. No burning frequency urgency. There is no penile discharge. No rectal pain. He is eating and drinking normally. No history of kidney stones. No trauma. It sounds like he has had epididymitis before. PFSH PFS Medical History Foreign body in urethra, initial encounter Gross hematuria Migraines Non-smoker Home Medications dextroamphetamine-amphetam ine ER 15 mg 24hr capsule,extend release 15 mg PO DAILY 05/17/22 [History Last Taken Unknown] fluoxetine 40 mg capsule (Prozac) 40 mg PO DAILY 05/17/22 [History Last Taken Unknown] cephalexin 500 mg capsule 500 mg PO Q6 #40 CAPSULES 07/17/22 [Rx Last Taken Unknown] hydrocodone-acetaminophen 5-325mg 5mg-325mg 1 tab PO Q4H PRN PRN Pain 2 days #6 TABLETS 07/17/22 [Rx Last Taken Unknown] sulfamethoxazole 800 mg-trimethoprim 160 mg tablet 1 tab PO BID #20 TABLETS 07/17/22 [Rx Last Taken Unknown] Allergy/AdvReac Type Severity Reaction Status Date / Time No Known Allergies Allergy Verified 05/17/22 00:31 Surgical History History of appendectomy Social History Smoking Status: Never smoker ROS ROS ED Constitutional Constitutional ED: Denies fever(s) or subjective ENT ENT ED: Denies rhinorrhea Cardiovascular Cardiovascular: Denies chest pain or palpitations Respiratory/Chest Respiratory/Chest: Denies cough Gastrointestinal Gastrointestinal: Denies abdominal pain, constipation, diarrhea, melena, nausea or vomiting Genitourinary Genitourinary ED: Reports other Details: See history of present illness. ; Denies dysuria, hematuria or urinary frequency Musculoskeletal Musculoskeletal: Denies back pain Integumentary Denies rash Neurologic Neurologic: Denies headache(s) Hematologic/Lymphatic Hematologic/Lymphatic: Denies easy bleeding or easy bruising Allergic/Immunologic Allergic/Immunologic ED: Denies urticaria EXAM Physical Exam Narrative Exam Narrative: Patient awake alert laying in bed no acute distress. HEENT shows no thrush. No dehydration/dry mucous membranes noted. Lungs are clear bilaterally. Normal saturations. Heart is regular without murmur gallop or rub Abdomen soft and completely nontender. Bowel sounds are normal. No hernia. shows no CVA tenderness or suprapubic tenderness. Examination shows normal right testicle scrotum and normal penis. No lymphadenopathy. He does appear to have erythema warmth and some swelling of the left side of the scrotum. There is a scabbed area in the inferior portion that look like it may have been start of infection. It is very soft around this. I wondered if this opened up but he has not noted any drainage. I did do a bedside ultrasound that is supportive of fluid under this area. I believe this represents an abscess at the anterior inferior portion of the scrotum. He does not have any inguinal lymphadenopathy or swelling. No indication of hernia. Extremities show no rash or edema. Const Vital Signs: 07/17/22 03:29 Temperature 98.0 F Temperature Source Temporal Pulse Rate 98 Respiratory Rate 18 Blood Pressure 156/79 H Blood Pressure Mean 104 Pulse Ox 100 Oxygen Delivery Method Room Air MDM MDM MDM Narrative Medical decision making narrative: I discussed options with the patient. This does look like a scrotal cellulitis but I am concerned there may be a component of an abscess. I explained that we should probably anesthetize this area and see if we can get some drainage from the soft area near the's scab that he has. He did agree to this. We will assemble the equipment and initiate this process. Procedure: Incision drainage of scrotal abscess on the left: I discussed risk benefits and the options of using warm compresses and antibiotics alone. He did agree to the incision and drainage. The area was cleansed and draped. He was anesthetized with 4 cc of 1% lidocaine with some epinephrine locally. I first placed a needle through the scabbed over area. I got purulent material quickly. I then made an incision about a centimeter long in this area. We evacuated quite a bit of purulent material. There was 1 small dark reddish-black shahbaz (more content not included)... Normal [facility] Emergency Department Summary on 05-17-2022 Emergency Department Summary [facility] Medical Records Department [address] [place] [address] Emergency Department Summary 05/17/22 MR#: [id number] Acct: [id number] Name: DAVID MOJICA Rep #: [id number] : 1995 26 From: Naresh Dorado MD PCP: Dr. Mark Mercer MD Status:REG ER Location: ED HPI History of Present Illness Chief Complaint: Dizziness Informant: patient Onset/Context/Timing Onset: Today Context: Sudden Onset Timing: Intermittent Current Severity: Gone Maximum Severity: Mild Narrative Narrative: 26-year-old male history of ADHD and depression. On Adderall and Prozac. 0 work tonight is said he felt shaky. Just felt tired. Those symptoms have resolved. He feels fine now. Says he was dizzy that is since resolved. Denies room spinning. No headache. He denies any nausea, vomiting, diarrhea, fever or chills. No weakness. No recent illness or hospitalization. Prior similar symptoms: No Recent Illness/Hospitalization: No PFSH PFSH Medical History Foreign body in urethra, initial encounter Gross hematuria Migraines Non-smoker Home Medications dextroamphetamine-amphetam ine ER 15 mg 24hr capsule,extend release 15 mg PO DAILY 05/17/22 [History Last Taken Unknown] fluoxetine 40 mg capsule 40 mg PO DAILY 05/17/22 [History Last Taken Unknown] Allergy/AdvReac Type Severity Reaction Status Date / Time No Known Allergies Allergy Verified 05/17/22 00:31 Surgical History History of appendectomy Social History Smoking Status: Never smoker ROS ROS ED ROS Narrative Dizziness resolved. Review of Systems ROS Unobtainable: Denies due to encephalopathy Constitutional Constitutional ED: Denies chills or fever(s) Eyes Eyes: Denies blurry vision ENT ENT ED: Denies ear pain Cardiovascular Cardiovascular: Denies chest pain Respiratory/Chest Respiratory/Chest: Denies cough or dyspnea Gastrointestinal Gastrointestinal: Denies abdominal pain Genitourinary Genitourinary ED: Denies dysuria or hematuria Musculoskeletal Musculoskeletal: Denies arthralgias Integumentary Denies abscess Neurologic Neurologic: Denies headache(s) Psychiatric Psychiatric: Denies anxiety or depression Endocrine Endocrinology: Denies cold intolerance Hematologic/Lymphatic Hematologic/Lymphatic: Reports none Allergic/Immunologic Allergic/Immunologic ED: Denies mouth swelling or tongue swelling EXAM Physical Exam Narrative Exam Narrative: 6-year-old male no acute distress. Vital signs stable afebrile. Pulse ox 9 9% on room air no signs hypoxia. H EENT exam normal. Pupils round reactive light. Moist Riis members. TMs normal bilaterally. No wax. Neck nontender. No lymphadenopathy. Lungs clear to auscultation bilaterally. Heart regular rate and rhythm rate about 90 no murmur. Chest wall nontender. Abdomen soft nontender. No peritoneal signs. Moving all 4 extremities. Calves are nontender without edema or cords. Back exam normal. Nontender. Neurologically is awake and alert. No focal motor or sensory deficits. NIH of 0. Fingertip to nose within normal limits. He gets up from the bed and ambulates to the door without any difficulty. No ataxia. Const Vital Signs: 05/17/22 00:29 Temperature 97.4 F L Temperature Source Temporal Pulse Rate 90 Respiratory Rate 18 Blood Pressure 155/78 H Blood Pressure Mean 103 Pulse Ox 99 Oxygen Delivery Method Room Air Positive well nourished and well developed; Negative for obese, cachectic, contractures or unkempt General Appearance ED: well developed and NAD; Negative for unkempt, cachectic, contractures, cyanotic, diaphoretic or pallor Nutritional Appearance: Negative for cachectic or obese HEENT Reports TM's clear and moist mucous membranes; Denies dry mucous membranes Negative for trauma or tenderness Tympanic Membrane ED: Yes TM's clear Mouth ED: No dry mucous membranes Mouth: No dry mucous membranes Eyes PERRL and EOMs intact bilaterally General Eye ED: Negative for pale conjunctiva or scleral icterus Neck no lymphadenopathy, supple and no JVD General: Negative for tenderness Lymph Lymphatic: Negative for other Chest Wall inspection of chest normal and palpation of chest normal Chest: Negative for other Resp normal respiratory effort and clear to auscultation bilaterally Effort and Inspection: Negative for retractions, pain with movement or other Auscultation: Negative for rales, rhonchi or wheezes Cardio regular rate, regular rhythm, S1 normal heart sound, S2 normal heart sound and no murmurs Rate: Negative for bradycardia or tachycardic Rhythm: Negative for abnormal rhythm GI normal to inspection, nondistended, normoactive bowel sounds, non-tender, no (more content not included)... Normal [facility] Tobacco Screening.on 022 Fall risk assessment a) No falls within the last year [facility] [address] Work Phone: Tobacco use status CP b) No [facility] [address] Work Phone: C Urineon 10-15-2017 C Urine Final Report: Rare g rowth of Mixed skin contaminants Normal [facility] Comment on above: Performed By: #### [id number] ####AGUSTINA Microbiology [id number] [place] [address] POC Urinalysis Dip POCon POC Bilirubin Small 1+ Abnormal Negative [facility] Comment on above: Performed By: #### C [id number] ####AGUSTINA POC [id number] [place] [address] POC Blood Trace Abnormal Negative [facility] Comment on above: Performed By: #### C [id number] ####AGUSTINA POC [id number] [place] [address] POC Clarity Cloudy Abnormal CLEAR [facility] Comment on above: Performed By: #### C [id number] ####AGUSTINA POC [id number] [place] [address] POC Color Dark Yellow Abnormal Yellow [facility] Comment on above: Performed By: #### C [id number] ####AGUSTINA POC [id number] [place] [address] POC Glucose Negative Normal Negative [facility] Comment on above: Performed By: #### C [id number] ####AGUSTINA POC [id number] [place] [address] POC Ketone 5mg/dl Trace Abnormal Negative [facility] Comment on above: Performed By: #### C [id number] ####AGUSTINA POC [id number] [place] [address] POC Leukocyte Trace Normal Negative [facility] Comment on above: Performed By: #### C [id number] ####AGUSTINA POC [id number] [place] [address] POC Nitrite Negative Normal Negative [facility] Comment on above: Performed By: #### C [id number] ####AGUSTINA POC [id number] [place] [address] POC pH 5.5 mg/dL Normal 5.0-8.0 [facility] Comment on above: Performed By: #### C [id number] ####AGUSTINA POC [id number] [place] [address] POC Specific [place] 1.025 mg/dL Normal 1.005-1.035 [facility] Comment on above: Performed By: #### C [id number] ####AGUSTINA POC [id number] [place] [address] POC Urobilinogen 0.2 EU/dL Normal 0.2-1.0 [facility] Comment on above: Performed By: #### C [id number] ####AGUSTINA POC [id number] [place] [address] Protein mass conc Trace Abnormal Negative [facility] Comment on above: Performed By: #### C [id number] ####AGUSTINA POC [id number] [place] [address] Vital Signs Date Time Vital Sign Value Performing Clinician Facility 09-01-2022 10:27-0400 Body mass index (BMI) [Ratio] 21.57 kg/m2 Sara Schaefer [employer] Work Phone: [place] Work Phone: 09-01-2022 10:27-0400 Body surface area Derived from formula 2.02 m2 Sara Schaefer [employer] Work Phone: [place] Work Phone: 09-01-2022 10:27-0400 Body weight 76.22 kg Sara L [employer] Work Phone: [place] Work Phone: 09-01-2022 10:27-0400 Diastolic blood pressure 98 mm[Hg] Sara Schaefer [employer] Work Phone: [place] Work Phone: 04-20-2023 10:27-0400 Heart rate 75 /min Sara Schaefer [employer] Work Phone: CR-Hdjphag-Lkqytsj Work Phone: 09-01-2022 10:27-0400 Systolic blood pressure 153 mm[Hg] Sara Joneslinger Work Phone: GT-Zkeszoj-Sdvpbmk Work Phone: 08-31-2022 11:15-0400 Body height 187.96 cm Sara Schaefer [employer] Work Phone: NC-Emixwxe-Cajcokj Work Phone: 08-31-2022 11:15-0400 Body mass index (BMI) [Ratio] 21.87 kg/m2 Sara Joneslinger Work Phone: CO-Uthzybc-Ujtptwx Work Phone: 08-31-2022 11:15-0400 Body surface area Derived from formula 2.03 m2 Saar Schaefer [employer] Work Phone: JD-Aajlfnd-Ozfubvk Work Phone: 08-31-2022 11:15-0400 Body weight 77.25 kg Sara Joneslinger Work Phone: XH-Vuircfj-Tnhgpil Work Phone: 08-31-2022 11:15-0400 Diastolic blood pressure 76 mm[Hg] Sara Schaefer [employer] Work Phone: EV-Pphtpqd-Fwhacpn Work Phone: 08-31-2022 11:15-0400 Heart rate 80 /min Sara Schaefer [employer] Work Phone: SR-Crpcmbo-Tcgodxr Work Phone: 08-31-2022 11:15-0400 SaO2% (BldA) [Mass fraction] 98 % Sara Schaefer [employer] Work Phone: JA-Ydiudnt-Wmmjral Work Phone: 08-31-2022 11:15-0400 Systolic blood pressure 142 mm[Hg] Sara Joneslinger Work Phone: SE-Arqzixw-Hoarmhl Work Phone: 08-04-2022 11:01-0400 Body mass index (BMI) [Ratio] 21.86 kg/m2 Sara L Hellinger Work Phone: QL-Bytvcqj-Rvoocej Work Phone: 08-04-2022 11:01-0400 Body surface area Derived from formula 2.03 m2 Sara Schaefer [employer] Work Phone: OE-Uhypdtd-Vxpfnsx Work Phone: 08-04-2022 11:01-0400 Body weight 77.23 kg Sara Schaefer [employer] Work Phone: JU-Sbwvozj-Ukwfwds Work Phone: 08-04-2022 11:01-0400 Diastolic blood pressure 85 mm[Hg] Sara Joneslinger Work Phone: MS-Dhpgudx-Egkgyhn Work Phone: 08-04-2022 11:01-0400 Heart rate 82 /min Sara Joneslinger Work Phone: QV-Tbzzpxu-Neegvgu Work Phone: 08-04-2022 11:01-0400 Systolic blood pressure 136 mm[Hg] Sara Joneslinger Work Phone: PS-Lveqifu-Fsiaqwt Work Phone: 07-28-2022 13:58-0400 Body mass index (BMI) [Ratio] 21.73 kg/m2 Sara Schaefer [employer] Work Phone: IF-Svfpbgj-Mnxxfuf Work Phone: 07-28-2022 13:58-0400 Body surface area Derived from formula 2.02 m2 Sara Schaefer [employer] Work Phone: LT-Irctvmm-Xqjdktx Work Phone: 07-28-2022 13:58-0400 Body weight 76.77 kg Sara L Hellinger Work Phone: FL-Aktzeuc-Hrezrso Work Phone: 07-28-2022 13:58-0400 Diastolic blood pressure 90 mm[Hg] Sara L Hellinger Work Phone: CL-Ofgenkg-Nhqkwit Work Phone: 07-28-2022 13:58-0400 Heart rate 80 /min Sara L Hellinger Work Phone: AT-Jjwydus-Iwtgdet Work Phone: 07-28-2022 13:58-0400 Systolic blood pressure 160 mm[Hg] Sara L Hellinger Work Phone: GG-Pchqodv-Gnhsxoh Work Phone: 07-25-2022 11:50-0400 Body mass index (BMI) [Ratio] 21.96 kg/m2 Sara L Hellinger Work Phone: GZ-Mzshrpk-Jajvcox Work Phone: 07-25-2022 11:50-0400 Body surface area Derived from formula 2.03 m2 Sara L Hellinger Work Phone: DG-Colrona-Cozbljf Work Phone: 07-25-2022 11:50-0400 Body weight 77.58 kg Sara L Hellinger Work Phone: EZ-Ohxqdmc-Zcliych Work Phone: 07-25-2022 11:50-0400 Diastolic blood pressure 91 mm[Hg] Sara L Hellinger Work Phone: YL-Kgvwvsb-Wqnyufn Work Phone: 07-25-2022 11:50-0400 Heart rate 78 /min Sara L Hellinger Work Phone: WF-Sjtzigc-Xuwxver Work Phone: 07-25-2022 11:50-0400 Systolic blood pressure 154 mm[Hg] Sara Coboser Work Phone: RD-Kkfnovq-Wadpurv Work Phone: 05-17-2022 00:29-0500 Body height 187.96 cm [facility] Work Phone: 05-17-2022 00:29-0500 Body mass index (BMI) [Ratio] 21.2 kg/m2 [facility] Work Phone: 05-17-2022 00:29-0500 Body temperature 97.4 [degF] [facility] Work Phone: 05-17-2022 00:29-0500 Body weight 75 kg [facility] Work Phone: 05-17-2022 00:29-0500 Diastolic blood pressure 78 mm[Hg] [facility] Work Phone: 05-17-2022 00:29-0500 Heart rate 90 /min [facility] Work Phone: 05-17-2022 00:29-0500 Respiratory rate 18 /min [facility] Work Phone: 05-17-2022 00:29-0500 SaO2% (BldA) [Mass fraction] 99 % [facility] Work Phone: 05-17-2022 00:29-0500 Systolic blood pressure 155 mm[Hg] [facility] Work Phone: 09-01-2021 11:36-0400 Body height 187.96 cm Sara Joneslinger Work Phone: DD-Fudqpowkyn-Ifvi and [address] Work Phone: 09-01-2021 11:36-0400 Body mass index (BMI) [Ratio] 21.31 kg/m2 Sara Joneslinger Work Phone: IA-Prsdcvtche-Wlol and [address] Work Phone: 09-01-2021 11:36-0400 Body surface area Derived from formula 2.01 m2 Sara L Hellinger Work Phone: LY-Lvgygmuaxt-Ikqm and [address] Work Phone: 09-01-2021 11:36-0400 Body weight 75.3 kg Sara L Hellinger Work Phone: WL-Jtxdrxtrvz-Goaq and [address] Work Phone: 09-01-2021 11:36-0400 Diastolic blood pressure 72 mm[Hg] Sara L Hellinger Work Phone: LV-Adghsixevo-Fpbj and [address] Work Phone: 09-01-2021 11:36-0400 Heart rate 66 /min Sara L Hellinger Work Phone: IF-Bzpruxfyux-Ztia and [address] Work Phone: 09-01-2021 11:36-0400 SaO2% (BldA) [Mass fraction] 99 % Sara L Hellinger Work Phone: ON-Dxfmbgyqaz-Jqvh and [address] Work Phone: 09-01-2021 11:36-0400 Systolic blood pressure 118 mm[Hg] Sara L Hellinger Work Phone: OI-Zxibvchfuo-Bzkg and [address] Work Phone: 07-22-2021 19:30-0500 Diastolic blood pressure 77 mm[Hg] Sara Hellinger Other Phone: [facility] 07-22-2021 19:30-0500 Heart rate 77 /min Sara Hellinger Other Phone: [facility] 07-22-2021 19:30-0500 Respiratory rate 18 /min Sara Hellinger Other Phone: [facility] 07-22-2021 19:30-0500 SaO2% (BldA) [Mass fraction] 99 % Sara Gruber Other Phone: [facility] 07-22-2021 19:30-0500 Systolic blood pressure 127 mm[Hg] Sara Gruber Other Phone: [facility] 07-22-2021 17:46-0500 Body height 187.9 cm Sara Gruber Other Phone: [facility] 07-22-2021 17:46-0500 Body temperature 99.32 [degF] Sara Gruber Other Phone: [facility] 07-22-2021 17:46-0500 Body weight 73 kg Sara Gruber Other Phone: [facility] Encounters Encounter Date Encounter Type Care Provider Facility Start: 09-01-2022 Office outpatient vi sit 15 minutes Sara Joneslinger Work Phone: BD-Fpgenvy-Iuydmwb Work Phone: Start: 09-01-[address] Cathy Medina Fa cility:[id number] Start: 08-31-2022 ambulatory MD CLEMENCIA Cornejo lity:[id number] Start: 08-17-2022 Chart Update Sara Balderrama satya Work Phone: NP-Rnfmqgg-Zbtucoi Work Phone: Start: 08-04-[address] Cathy Medina Fa cility:[id number] Start: 08-04-2022 FUV, Provider: Cathy Ontiveros, Status: Pen, Time: 10:00 AM Sara Joneslinger Work Phone: PR-Rkbffhb-Uwstyrg Work Phone: Start: 08-04-2022 Office outpatient vi sit 15 minutes Sara Joneslinger Work Phone: GR-Bkcbbqr-Chsrhvp Work Phone: Start: 08-02-[address] Cathy Medina Fa cility:[id number] Start: 08-02-2022 Patient encounter procedure Sara Gruber Work Phone: CM-Mtijdao-Zkgnjgn Work Phone: Start: 07-29-2022 End: 07-29-[address] Cathy Medina Facility:[id number] Start: 07-28-[address] Cathy Medina Fa cility:[id number] Start: 07-28-2022 Office outpatient vi sit 15 minutes Sara Gruber Work Phone: TY-Isasfrx-Abtrkmo Work Phone: Start: 07-25-2022 ambulatory SARA GRUBER Fac ility:[id number] Start: 07-25-2022 Office outpatient ne w 45 minutes Sara Gruber Work Phone: BA-Hohynso-Yvduxnu Work Phone: Start: 07-25-[address] Cathy Medina Fa cility:[id number] Start: 07-17-2022 End: 07-17-2022 Emergency department patient visit Mark Amatoman Facility:[facility] Start: 05-17-2022 End: 05-17-2022 Emergency department patient visit Naresh Dorado Facility:[facility] Start: 05-17-2022 End: 05-17-2022 Emergency department patient visit [facility] Start: 09-01-2021 Office outpatient ne w 45 minutes Sara Gruber Work Phone: YJ-Cbdosxtwsq-Cimmsys [address] Work Phone: Start: 07-22-2021 End: 07-22-2021 Emergency department patient visit Mikhail Siddiqui [facility] Emergency 02 Start: 10-13-2017 End: 10-14-2017 Patient encounter procedure Crescencio Olson Facility:[facility] Procedures Date Procedure Procedure Detail Performing Clinician Start: 07-22-2021 End: 07-22-2021 EKG impression Mikhail Siddiqui Start: 07-22-2021 End: 07-22-2021 EKG impression Mikhail Siddiqui Appendectomy Sara Cobos er Work Phone: Leg repair Sara Cobos er Work Phone: Operation on scrotum Sara Coboser Work Phone: Plan of Treatment Date Care Activity Detail Author Start: 03-06-2023 FUV, Provider: Cathy Ontiveros, Status: Pen, Time: 10:15 AM FUV, Provider: Cathy Ontiveros, Status: Pen, Time: 10:15 AM ZH-Dzxlvng-Hgypkzy Work Phone: Start: 09-01-2022 FUV, Provider: Cathy Ontiveros, Status: Pen, Time: 10:15 AM FUV, Provider: Cathy Ontiveros, Status: Pen, Time: 10:15 AM YQ-Rgzrwfu-Tbbmrhd Work Phone: Start: 08-31-2022 FUV, Provider: Clemencia Irwin, Status: Pen, Time: 10:45 AM FUV, Provider: Clemencia Irwin, Status: Pen, Time: 10:45 AM CS-Rjllscplwf-Owkmuj d [address] [place] [address] Work Phone: Start: 07-28-2022 FUV, Provider: Cathy Ontiveros, Status: Pen, Time: 1:45 PM FUV, Provider: Cathy Ontiveros, Status: Pen, Time: 1:45 PM JE-Osrpidc-Tednmft Work Phone: Start: 07-22-2021 End: 07-23-2022 Perflutren Lipid Microsphere (Activated) 1.3 mL / NaCL 0.9% T.V. 10 mL Injectable . ; DOSE = 0.5 mL IntraVenous Push OnceClinician Notes: 1. Dilute 1.3 mL of activated DEFINITY with 8.7 mL of normal saline in a 10 mL syringe.2. Inject 0.5 mL of diluted DEFINITY when notified the images/film are unclear to enhance view of Left Ventricular borders.3. Repeat 0.5 mL of DEFINITY until clear images are obtained, not to exceed 10 mLs.4. Once images are obtained or limit of medication is reached, flush line with 10 mL of Normal Saline. Start: 22-Jul-2021 End: 22-Jul-2022 Ordered: 22-Jul-2021 Nayely Olvera I Intent Comments: 1. Dilute 1.3 mL of activated DEFINITY with 8.7 mL of normal saline in a 10 mL syringe.2. Inject 0.5 mL of diluted DEFINITY when notified the images/film are unclear to enhance view of Left Ventricular borders.3. Repeat 0.5 mL of DEFINITY until clear images are obtained, not to exceed 10 mLs.4. Once images are obtained or limit of medication is reached, flush line with 10 mL of Normal Saline. [facility] Comment on above: 1. Dilute 1.3 mL of activated DEFINITY with 8.7 mL of normal saline in a 10 mL syringe.2. Inject 0.5 mL of diluted DEFINITY when notified the images/film are unclear to enhance view of Left Ventricular borders.3. Repeat 0.5 mL of DEFINITY until clear images are obtained, not to exceed 10 mLs.4. Once images are obtained or limit of medication is reached, flush line with 10 mL of Normal Saline. Patient Education ED Dizziness, Uncertain Cause [facility] Work Phone: Patient referral [facility] Work Phone: Immunizations Immunization Date Immunization Notes Care Provider Silver connolly 01-02-2018 tetanus toxoid, redu ricardo diphtheria toxoid, and acellular pertussis vaccine, adsorbed [facility] Work Phone: Payers Date Payer Category Payer Medicaid [id number] 2022 Self-pay [id number] 2022 Unknown [id number] 2017 Unknown 1994 Unknown [id number] 2.16.84 [id number] 1994 Unknown [id number] 2.16.84 [id number] 1994 Unknown [id number] 2.16.8 [id number] 1994 Unknown [id number] 2.16.8 [id number] 1994 Unknown [id number] 2.16. [id number] 1994 Unknown [id number] 2.16. [id number] 1994 Unknown [id number] 2.16. [id number] 1994 Unknown [id number] 2.16. [id number] 1994 Unknown [id number] 2.16. [id number] 1994 Unknown [id number] 2.16. [id number] Unknown [facility] [id number] Unknown [id number] 2.16.8 [id number] Unknown [id number] 2.16.8 [id number] Social History Date Type Detail Facility [facility] Start: 05-17-2022 Tobacco smoking consumption unknown [facility] Consumes alcohol occasionally Consumes alcohol occasionally WG-Dkrzvukycc-Vfxczrb [address] Work Phone: Start: 06-01-2019 None [facility] Work Phone: Start: 06-01-2019 Alone [facility] Work Phone: Start: 1995 Sex Assigned At Male [facility] Work Phone: Mental Status Date Assessment Result Facility 05-17-2022 Cognitive function Level Of Cons ciousness Awake;Alert;Appropriate;Follow s Commands [facility] Work Phone: History of Present illness Narrative 07-29-2022 Note Date & Type Note Facility 07-29-2022 History of Presen t illness Narrative Hx of scrotal abscess. S/P I &DL scrotum abscess 07/29/22. Drain tube was removed 08/02. Pt does still have packing. Pt states he has had no issues since having drain tube removed. No pain. CC-Nghhgnv-Yskktfe Work Phone: History of Present illness Narrative 07-29-2022 Note Date & Type Note Facility 07-29-2022 History of Presen t illness Narrative Patient presents to the office today for a 1 MO F/U. Hx of scrotal abscess. S/P I &DL scrotum abscess 07/29/22. Drain tube was removed 08/02. Pt states he has had no issues since having drain tube removed. No pain. Renal US(07/25/2022)...incision is healing well. no drainage, no pain. [place] Work Phone: Clinical Note 07-29-2022 Note Date & Type Note Facility 07-29-2022 Note PROCEDURE DETAILS Preoperative Diagnosis: Left scrotal abscess Postoperative Diagnosis: Left scrotal abscess Surgeon: Dr. Medina Resident/Fellow/Other Jig Fitter: none Procedure: Scrotal exploration I&D of left scrotum Estimated Blood Loss: 0 Findings: See Op note Specimens(s) Collected: yes, left scrotal wall and left scrotal abscess Operative Report: Anesthetic: General. Pre-Op Diagnosis: Left Scrotal abscess Post-Op Diagnosis: Left Scrotal abscess Operation: I & D L SCROTUM Abscess and Scrotal Debridement Estimated blood loss: Minimal. Complications: None. Indications and consent: The patient has a Scrotal abscess and now presents for surgical intervention. After the risks, benefits, alternatives and indications of procedure were explained, he consented. DESCRIPTION OF PROCEDURE: The patient was brought to the operating room and placed on the table in supine position. After adequate anesthesia was obtained, the patient was prepped and draped in the standard surgical fashion. An incision was made on the LEFT hemiscrotum. This incision was carried down through the into the deep layers. a gush of pus and purulent material was expressed to the outside. incision and drainage of the abscess was done, debridement of all infected and scrotal abscess was performed. Electrocautery was used to obtain hemostasis. Copious irrigation with gentamicin infused sterile water was done. skin edges were approximated loosely with 2-0 silk ties. The wound was packed with an antibiotic gauze. quarter inch drain was placed. 1 swab wound cultures were sent to the lab. The patient tolerated the procedure well. There were no complications. He will need to change his dressing and packing once a day and I will see him in 1 week in the office. Electronic Signatures: Cathy Ontiveros) (Signed 29-Jul-2022 12:25) Authored: Post-Operative Note, Chart Review, Note Completion Last Updated: 29-Jul-2022 12:25 by Cathy Ontiveros) [facility] Clinical Note 07-29-2022 Note Date & Type Note Facility 07-29-2022 Note History & Physical R eviewed: I have reviewed the History and Physical dated: 28-Jul-2022 History and Physical reviewed and relevant findings noted. Patient examined to review pertinent physical findings.: No significant changes Home Medications Reviewed: no changes noted Allergies Reviewed: no changes noted ERAS (Enhanced Recovery After Surgery): ERAS Patient: no Consent: COVID-19 Consent: COVID-19 Risk ConsentSurgeon has reviewed chen risks related to the risk of celeste COVID-19 and if they contract COVID-19 what the risks are. Electronic Signatures: Cathy Ontiveros) (Signed 29-Jul-2022 07:52) Authored: History & Physical Reviewed, ERAS, Consent, Note Completion Last Updated: 29-Jul-2022 07:52 by Cathy Ontiveros) [facility] Evaluation note Note Date & Type Note Facility Evaluation note No assessment information [facility] Work Phone: History of Present illness Narrative Note Date & Type Note Facility History of Present illness Narrative 26-year-old gentleman who was recently evaluated in the emergency department for chest discomfort; in the setting of receiving his COVID booster vaccineChest pressure-started 90 minutes after receiving his COVID booster vaccine. Lasted 24-48 hours. Described as sharp and severe; unremitting chest discomfort with no relief with position/palpation/respiration-P ain has since resolved. With activities of daily living he denies any chest discomfort or shortness of breath. Denies any orthopnea/PND/lower extremity edema. Denies any dizziness/lightheadedness.EKG notes normal sinus rhythm with early repolarization changes. Echocardiogram performed 07/22/2021 notes no evidence of myopericarditis troponin was negative on that ER visit on July 22. DV-Yoyckwhemn-Suqpnzd [address] Work Phone: History of Present illness Narrative Note Date & Type Note Facility History of Present illness Narrative Patient presents to the office today to Establish with Scrotal Wall Abscess x 2 week, pain ,left side, radiating left scrotum, no f/c, no n/v, no constipation, 10/22, burning in nature .....patient states he took out the packing after two days...Patient states there is still a lump there... LUTs are chronic and mild. Denies frequency and urgency. Denies dysuria and hematuria.. Nocturia x1.. Caffeine does worsen LUTs.. 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 yellow discharge from it initially, now improved. still taking antibiotic (unsure of name). non tender. denies any fever or chills, n/v. stomach upset from antibiotic. KI-Nvdtaym-Wrdxklb Work Phone: History of Present illness Narrative Note Date & Type Note Facility History of Present illness Narrative Pt was seen monday for Scrotal Wall Abscess x 2 week, pain ,left side, radiating left scrotum, no f/c, no n/v, no constipation..Pt did have a recent U/S done which did show 2.4cm left scrotal wall complex lesion with hyperemia suspicious for abscess..patient states he took out the packing after two days...Patient states there is still a lump there... LUTs are chronic and mild. Denies frequency and urgency. Denies dysuria and hematuria.. Nocturia x1.. Caffeine does worsen LUTs.. 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 yellow discharge from it initially, now improved. [facility] Work Phone: Hospital Discharge instructions Note Date & Type Note Facility Hospital Discharge instructions Additional Instructions Your exam is normal. Plenty of fluids and rest. Return if worse. Follow-up if not improving. [facility] Work Phone: Summary Purpose Family History No Family History Records FoundUnknown Family Member Name Dates Details Primary malignant neoplasm o f female breast: Mother Status:Active Heart problem: Father Status:Active Family history of hyperlipid emia: Father(V18.19, Z83.438) Status:Active Relationship Condition Age at Onset Recorded Date/T danna Unknown Family History?- Unknown May 5:53am Family History?Hypertension Unknown June 01, 2019 5:53am Unknown Family Member Name Dates Details Primary malignant neoplasm o f female breast: Mother Status:Active Heart problem: Father Status:Active Family history of hyperlipid emia: Father(V18.19, Z83.438) Status:Active Unknown Family Member Name Dates Details Primary malignant neoplasm o f female breast: Mother Status:Active Heart problem: Father Status:Active Family history of hyperlipid emia: Father(V18.19, Z83.438) Status:Active Unknown Family Member Name Dates Details Primary malignant neoplasm o f female breast: Mother Status:Active Heart problem: Father Status:Active Family history of hyperlipid emia: Father(V18.19, Z83.438) Status:Active Unknown Family Member Name Dates Details Primary malignant neoplasm o f female breast: Mother Status:Active Heart problem: Father Status:Active Family history of hyperlipid emia: Father(V18.19, Z83.438) Status:Active Unknown Family Member Name Dates Details Primary malignant neoplasm o f female breast: Mother Status:Active Heart problem: Father Status:Active Family history of hyperlipid emia: Father(V18.19, Z83.438) Status:Active Unknown Family Member Name Dates Details Primary malignant neoplasm o f female breast: Mother Status:Active Heart problem: Father Status:Active Family history of hyperlipid emia: Father(V18.19, Z83.438) Status:Active Advance Directives No Advanced Directives Records Found Advance Directive Response Recorded Date/ Time Living Will No May 17 3 1:22am Power of Military Pay Clerk No May 17 023 1:22am Chief Complaint and Reason for Visit Chief Complaint dizziness Chief Complaint Establishing with Scrotal Wall AbscessSCROTAL U/Ssurgery f/u1 MO F/U Additional Source Comments (unrecognized sect ion and content) No Status Records FoundNo Status Records FoundNo Status Records FoundNo Status Records FoundNo Status Records Found INFORMATION SOURCE (unrecogn ized section and content) DATE CREATED AUTHOR 05/22/2018 [facility] DATE CREATED AUTHOR AUTHOR'S ORGANIZ ATION 07/27/2022 [facility] DATE CREATED AUTHOR AUTHOR'S ORGANIZ ATION 08/19/2022 [facility] DATE CREATED AUTHOR AUTHOR'S ORGANIZ ATION 09/01/2022 [facility] DATE CREATED AUTHOR AUTHOR'S ORGANIZ ATION 09/01/2022 [employer] <item> Privacy Markings (unrecogniz ed section and content) Section Author: Palmira Martinez PROHIBITION ON REDISCLOSURE OF CONFIDENTIAL INFORMATION This notice accompanies a disclosure of information concerning a client made to you with the consent of such client. Goals (unrecognized section and content) Goals may be documented in a n alternate section FOR RECORDS PERTAINING TO PATIENTS WHO ARE OR HAVE BEEN ENROLLED IN A CHEMICAL DEPENDENCY/SUBSTANCEABUSE PROGRAM, SOME INFORMATION MAY BE OMITTED. This clinical summary was aggregated from multiple sources. Caution should be exercised in using it in the provision of clinical care. This summary normalizes information from multiple sources, and as a consequence, information in this document may materially change the coding, format and clinical context of patient data. In addition, data may be omitted in some cases. CLINICAL DECISIONS SHOULD BE BASED ON THE PRIMARY CLINICAL RECORDS. [employer] provides no warranty or guarantee of the accuracy or completeness of information in this document.
--- NOTE | 2025-01-24 22:07 | PCM.PRE.AN2 ---
ASA Classification* ASA Classification ASA Classification: 2 and E Assessment & Plan Anesthesia* Anesthesia Assessment Anesthesia Assessment: Discussed sedation and/or anesthesia options, risks, benefits, and alternatives with patient/parents/legal guardian/POA. Questions invited. The patient/parents/legal guardian/POA seems to understand and agrees to proceed with anesthesia plan. Reviewed the physical assessment, medical history, allergy history and patient home medications list prior to surgery/procedure/anesthetic and documented any changes. Performed airway and anesthesia risk assessments. Anesthesia Type Anesthesia Type: General Anesthesia Focused Assessment* Temperature: 97.9 F Pulse Rate: 84 Blood Pressure: 136/77 Respiratory Rate: 15 Pulse Ox: 100 Airway Assessment Mouth opens: >3 cm Mallampati Score: I Labs Anesthesia Preop lab: CBC WBC 10.4 K/mm3 (4.4-11.0) 01/24/25 18:01/24/25 RBC 5.04 M/mm3 (4.6-6.2) 01/24/25 18:01/24/25 Hgb 14.3 g/dL (13.0-16.5) 01/24/25 18:30 01/24/25 Hct 42.8 % (40-54) 01/24/25 18:30 01/24/25 Plt Count 210 K/mm3 (150-450) 01/24/25 18:30 01/24/25 CHEMISTRY Potassium 3.6 mmol/L (3.3-5.1) 01/24/25 18:30 01/24/25 Sodium 139 mmol/L (133-145) 01/24/25 18:30 01/24/25 BUN 9 mg/dL (4-19) 01/24/25 18:30 01/24/25 Creatinine 0.81 mg/dL (0.70-1.20) 01/24/25 18:30 01/24/25 Glucose 94 mg/dL (70-99) 01/24/25 18:30 01/24/25 COAG Pre-Assessment Diagnosis/Proposed Procedure Planned Operative Procedure(s): removal of anal fo Anesthesia History Anesthesia History - senior product marketing manager: Anesthesia History - senior product marketing manager Hx Hospitalization Any Problems With Anesthesia No 01/24/25 20:42 Cholinesterase deficiency No 01/24/25 20:42 You/Your Family Experience No 01/24/25 20:42 fever (hyperthermia) with Relationship Recent Exposure to Contagious No 01/24/25 20:42 Disease Does patient have nerve No 01/24/25 20:42 stimulator Patient instructed to have device shut off --Does patient have Pacemaker or ICD? When Was Last Pacemaker Check QUESTION #4 FULL TEXT: You/Your Family Experience fever (hyperthermia) with Anesthesia Last Oral Intake Last Oral intake: Last Oral Intake NPO since Meds taken in AM with sips of water? Meds patient instructed to take am of surgery PONV PONV - senior product marketing manager: PONV - senior product marketing manager Female HX of Motion Sickness HX of N/V After Surgery Non-Smoker Duration of Surgery greater than 60 minutes Number of Risk Factors PONV Score Height & Weight Height & Weight: Anesthesia: Height & Weight Height 6 ft 2 in 01/24/25 20:42 Weight: 73.527 kg 01/24/25 20:42 Body Mass Index (BMI) 20.8 01/24/25 20:42 Respiratory Assessment Respiratory Assessment - senior product marketing manager: Respiratory Tract Infection Hx - senior product marketing manager Hx Respiratory Tract Infection No 01/24/25 20:42 STOP Sleep Apnea STOP Sleep Apnea - senior product marketing manager: STOP Sleep Apnea - senior product marketing manager Hx Hypertension No 01/24/25 20:42 Hx Sleep Apnea No 01/24/25 20:42 CPAP No 12/16/20 23:49 BIPAP No 12/16/20 23:49 Do you snore loudly (louder No 01/24/25 20:42 than talking or can be heard Do you often feel tired/ No 01/24/25 20:42 fatigued/ sleepy during daytime? Has anyone observed you stop No 01/24/25 20:42 breathing during sleep? STOP Results Negative 01/24/25 20:42 QUESTION #5 FULL TEXT : Do you snore loudly (louder than talking or can be heard through closed doors)? 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 Specify any problems Hx of Preganancy in last 3 Months Nurse Filling Out Transfusion & Questions: Date: Time: Patient unable to answer at this time (ie. confused, unrespo /Reproduction History /Reproductive History - senior product marketing manager: /Reproductive Hx- senior product marketing manager Hx Now No 01/24/25 20:42 Gestational Age (in weeks): EDC: Hx Hx Para Hx Section SAB No [facility]/24/25 20:[facility] History Gross hematuria Non-smoker Migraines Foreign body in urethra, initial encounter Home Medications ?Medication ?Instructions ?Recorded ?Last Taken ?Type NK 01/24/25 Unknown History Allergy/AdvReac Type Severity Reaction Status Date / Time No Known Allergies Allergy Verified 01/24/25 16:15 Surgical History History of appendectomy Social History housing: house Smoking Status: Never smoker Review of Systems (Anesthesia) ROS Narrative System reviewed and no additional complaints, except as documented.
[2025-01-24] MEDS: Lidocaine 1% (5 ml sdv) 5 ML Vial IV (22:18)
[2025-01-24] MEDS: Lactated Ringers 2,000 ML 2000 ML IV (23:12)
--- NOTE | 2025-01-24 23:15 | FORE_PTH ---
PATIENT: DAVID MOJICA LOC: MS3 U#:[id number] AGE/SX: 29/M ROOM: [facility] [place] RE01/25/[address]: Dr. Juan M Cummins MD : 1995 BED: 1 DIS: 01/27/2025 SPEC #: [id number] RECD: 01/24/25 23:58 STATUS: DESHAUN TOELNTINO #: [id number] DANNY: 01/24/25 23:[address]: Juan M Cummins DEPT: SURGICAL PATHOLOGY RECD BY: Rodney Howe ENTERED: 01/27/25 13:01 SP TYPE: FOREIGN B OT DR: Elizabeth Primary Care Phys Tissues: A - FOREIGN BODY Procedures: Surgery Specimen Level I HEADER OPERATION: Sigmoid colonoscopy, exploratory laparotomy PRE-OP DIAGNOSIS: Foreign body anus/rectum TISSUE SUBMITTED: A- Foreign body MICROSCOPIC DIAGNOSIS A. Foreign body, anus/rectum: - Foreign body confirmed (gross examination only). MICROSCOPIC DESCRIPTION Slides are reviewed. GROSS DESCRIPTION A. Received fresh labeled with the patient's name and date of . Designated as foreign body is a elongated portion of flexible, black synthetic material (possible rubber) with a tapered end, measuring 38.1 cm in length by 0.9-4.8 cm in diameter. No inscriptions are identified. No sections are submitted. The specimen is for gross examination only. GA 01/27/2025 CPT:83924
[2025-01-24] MEDS: fentaNYL 100 MCG/2 ML Ampul 200 MCG IV (23:17)
--- NOTE | 2025-01-24 23:31 | OP.PCM_ITS ---
Operative Report (Standard) Operative Information Date of Procedure: 01/24/25 Pre-Operative Diagnosis: Foreign body entrapped in sigmoid colon Post-Operative Diagnosis: Same Surgery/Procedure Performed: 1. Colonoscopy 2. Exploratory laparotomy with removal of foreign body crystal lapper: Yes Information Systems Professor: Jeff Gonzales Tasks completed by research assistant member: Opening & closing Type of Anesthesia: General/Regional RN Documented Start/Stop Times: Operation Date: 01/24/25 23:15 Case Time Into Pre-Op 01/24/25 21:30 Out of Pre-Op 01/24/25 22:12 Anesthesia Start 01/24/25 22:14 Into Room 01/24/25 22:14 Procedure Start 01/24/25 22:27 Procedure End 01/24/25 23:28 Procedure Start Time: : Procedure Stop Time: :28 Select all DRAINS/GRAFTS/IMPLANTS that apply: None Estimated Blood Loss: 10 Specimen collected: Yes Description of specimen(s) removed: Foreign body Description of surgery: Patient was brought back to the operating room and general anesthesia was induced. The patient was placed in lithotomy position. Using a well-lubricated finger rectal exam was completed and I was unable to feel the foreign body. Nex t a well-lubricated colonoscope was placed through the anus and up through the rectum. The distal end of the foreign body appeared to be at least 20 to 30 cm into from the anal verge. I was unable to and tatitlek it with a snare so we decided to convert to laparotomy. The mucosa appeared viable. Next the abdomen was prepped and draped in usual sterile fashion. A midline incision was marked and then incised with a scalpel. Electrocautery was used to deepen the incision to the fascia. The fascia was incised and then the peritoneum was elevated and incised. The fascia and peritoneum were opened superiorly and inferiorly using a finger to guard the bowel. The sigmoid colon was examined. It appeared to be twisted around the foreign body. I was able to guide the distal end of the foreign body down to the rectum and reached up through the anus and grab it and pull it out entirely. I rescrubbed and gloved and reexamined the sigmoid colon. It appeared viable with no areas of necrosis or perforation. Next the omentum was draped over the bowel and the midline fascia was closed with a running #1 PDS suture from the top and bottom meeting in the middle. Next the skin was closed with skin eduardo. Dressing was applied and patient was taken to PACU in stable condition. No enterotomy was needed. Surgical Findings: Foreign body removed from colon Complications Complications: No Admit VTE Documentation VTE Mechan Device Prophylaxis: SCD's
--- OUTSIDE RECORDS SUMMARY | 2025-01-24 23:43 | XMS RPT_ITS | CCD ---
Author Organization [facility] Care Team Providers Care Senior Financial Reporting Analyst Name Role Phone Crescencio Olson J Unavailable Unavailable Crescencio Olson Unavailable Unavailable No Doctor Assigned, Nodr Unavailable Unavail able Crescencio Olson Unavailable Unavailable Crescencio Olson Unavailable Unavailable No Doctor Assigned, Nodr Unavailable Unavail able Sara Gruber Unavailable Mikhail Siddiqui Unavailable Unavailabl e KarenkerenSara Silvano Unavailable Unavailable Unavailable Naresh Dorado Attending Unavailable Mark Mercer Primary Care Unavailable Mark Mercer Primary Care Unavailable Yann Cline Attending Unavailable [facility] Unavailable Abou Ghrussel, Dr. Calvo Attending Unavailabl e Abou Carol, Dr. Calvo Admitting Unavailabl e [facility] Unavailable Abou Ghrussel, Dr. Calvo Referring Unavailabl e Abou Ghralphda, Dr. Calvo Attending Unavailabl MD CLEMENCIA Wick Attending Unavailable MD CLEMENCIA IRWIN Referring Unavailable [facility] Abou Ghrussel, Dr. Calvo Referring Unavailabl e HELLINGER, [facility] Unavail able Abou Ghayda, Dr. Calvo Attending Unavailabl e Abou Ghrussel, Dr. Calvo Referring Unavailabl e Abou Ghrussel, Dr. Calvo Attending [facility]ailabl [facility] Abou Ghralphda, Dr. Calvo Referring Unavailabl e Abou Ghayda, Dr. Calvo Attending Unavailabl e HELLINGER, [facility] Unavail able Abou Ghayda, Dr. Calvo Attending Unavailabl e HELLINGER, [facility] Unavail able Abou Ghayda, Dr. Calvo Referring Unavailabl e Rajan Medina, Dr. 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 Calvo Attending [facility] e Care Physician, No Primary Primary Care Provider Unavailable Dr. Lázaro Abraham DO Emergency Provider Maria G DRUMMOND, Dr. Mcgowan Attending Provider Allergies Allergy Classification Reported Allergen(s) Allergy Type Date of Onset Reaction(s) Facility (1 source) No Known Medication Allergies; Translations: [No Known Medication Allergies] Propensity to adverse reactions to drug (disorder) [facility] Repository Medications Current Medications Medication Drug Class(es) Dates Sig (Normalized) Sig (Original) naproxen 500 mg oral tablet (1 source) [...] milk. Comment on above: Check with your doct or before becoming .May cause drowsiness or dizziness.Obtain medical advice before taking any non-prescription drugs as some may affect the action of this medication.Take with food or milk. [place] (Nk) (1 source) Start: 01-24-2025 [place] (Nk) Active January 24, 2025 12:00am Completed/Discontinued Medications Medication Drug Class(es) Dates Sig (Normalized) Sig (Original) acetaminophen 325 mg / HYDROcodone bitartrate 5 mg oral tablet (1 source) Opioid Agonist Start: 07-17-2022 End: 01-24-2025 Hydrocodone-Acetam inophen 5-325 mg tablet Discontinued 1 {tbl} PO EVERY 4 HOURS NEEDED as needed for Pain 6 2 0 July 17, 2022 January 24, 2025 8:41pm Abscess of scrotal wall Encounter for incision and drainage procedure Inflammatory disorders of scrotum Persons encountering health services in other specified circumstances 24 hr amphetamine aspartate 3.75 mg / amphetamine sulfate 3.75 mg / dextroamphetamine saccharate 3.75 mg / dextroamphetamine sulfate 3.75 mg extended release oral capsule (2 sources) Central Nervous System Stimulant Start: 05-17-2022 End: 01-24-2025 take 1 capsule by mouth once daily Dextroamphetamine- Amphetamine 15 mg capsule,extended release 24hr Discontinued 15 mg PO DAILY May 17, 2022 1:00am January 24, 2025 8:40pm cephalexin 500 mg oral capsule (1 source) Cephalosporin Antibacterial Start: 07-17-2022 End: 01-24-2025 take 1 capsule by mouth every six hours Cephalexin 500 mg capsule Discontinued 500 mg PO EVERY 6 HOURS 40 0 July 17, 2022 1:00am January 24, 2025 8:40pm FLUoxetine 40 mg oral capsule (9 sources) Serotonin Reuptake Inhibitor Start: 05-17-2022 End: 01-24-2025 take 1 capsule by mouth once daily Fluoxetine (Prozac) 40 mg capsule Discontinued 40 mg PO DAILY May 17, 2022 1:00am January 24, 2025 8:40pm Start: 09-01-2021 take 1 capsule by [facility] once daily FLUoxetine HCl - 10 MG Oral Capsule TAKE 1 CAPSULE Daily Quantity: 90 Refills: 3 Ordered: 01-Sep-2021 DO Start : 01-Sep-2021 Active oxyCODONE hydrochloride 5 mg oral tablet (2 sources) Opioid Agonist Start: 06-04-2019 End: 06-07-2019 take 1 tablet by mouth every six hours as needed for pain Oxycodone 5 MG tablet Discontinued 5 mg PO EVERY 6 HOURS NEEDED as needed for Pain Score 4-10/10 12 3 0 June 04, 2019 June 06, 2019 1:00am June 07, 2019 1:08am Left epididymitis Epididymitis sulfamethoxazole 800 mg / trimethoprim 160 mg oral tablet (1 source) Dihydrofolate Reductase Inhibitor Antibacterial, Sulfonamide Antimicrobial Start: 07-17-2022 End: 01-24-2025 Sulfamethoxazole- Trimethoprim 800-160 mg tablet Discontinued 1 {tbl} PO TWICE A DAY 20 July 17, 2022 1:00am January 24, 2025 8:41pm Problems Problem Classification Problem Date Documented Date Episodic/Chronic Abdominal pain (2 sources) Abdominal pain; Translations: [Unspecified abdominal pain] 05-26-2021 Episodic Anxiety disorders (7 sources) Mixed anxiety and depressive disorder; Translations: [Anxiety state, unspecified] Chronic Conditions associated with dizziness or vertigo (3 sources) Dizziness; Translations: [Dizziness and giddiness] Onset: 05-30-2022 05-25-2022 Episodic Genitourinary symptoms and ill-defined conditions (2 sources) Dominic hematuria; Translations: [Gross hematuria] 02-17-2021 Episodic Immunizations and screening for infectious disease (3 sources) Patient encounter status; Translations: [Encounter for laboratory testing for COVID-19 virus] 05-18-2021 Episodic Inflammatory conditions of male genital organs (14 sources) Epididymitis; Translations: [Epididymitis] Onset: 07-25-2022 Episodic Nausea and vomiting (2 sources) Intractable nausea and vomiting; Translations: [Nausea with vomiting, unspecified] 02-17-2021 Episodic Nonspecific chest pain (10 sources) Chest pain; Translations: [Chest pain, unspecified] 07-22-2021 Episodic Open wounds of extremities (2 sources) Laceration of left forearm; Translations: [Laceration without foreign body of left forearm, initial encounter] 02-17-2021 Episodic Other circulatory disease (1 source) Elevated blood pressure; Translations: [Elevated blood pressure reading without diagnosis of hypertension] Episodic Other injuries and conditions due to external causes (2 sources) Foreign body in urethra; Translations: [Foreign body in urethra, initial encounter] 02-17-2021 Episodic Other injuries and conditions due to external causes (2 sources) Foreign body in anus and rectum; Translations: [Foreign body in anus and rectum, initial encounter] 01-24-2025 Episodic Other male genital disorders (1 source) Cyst of epididymis; Translations: [Cyst of epididymis] Onset: 07-25-2022 Episodic Other male genital disorders (1 source) Disorder of male genital organs, unspecified; Translations: [Disorder of male genital organs, unspecified] Onset: 07-25-2022 Episodic Residual codes; unclassified (2 sources) Pain; Translations: [Pain, unspecified] 02-17-2021 Episodic Residual codes; unclassified (1 source) Acquired absence of other genital organ(s); Translations: [Acquired absence of other genital organ(s)] Onset: 07-25-2022 Episodic Screening and history of mental health and substance abuse codes (2 sources) Personal history of other mental and behavioral disorders; Translations: [History of attention deficit hyperactivity disorder (ADHD)] 05-25-2022 Episodic Septicemia (except in labor) (2 sources) Sepsis; Translations: [Sepsis, unspecified organism] 02-17-2021 Episodic Unclassified (2 sources) EXAM 07-22-2021 Comment on above: EXAM Results Test Name Value Interpretation Reference Range Facility Absolute lymphocyte countOrd ered By: Lázaro Abraham on 01-24-2025 Lymphocytes Auto (Unsp spec) [#/Vol] 0.99 10*3/uL 0.83-4.51 [facility] Absolute neutrophil countOrd ered By: Lázaro Abraham on 01-24-2025 Neutrophils (Bld) [#/Vol] 8.4 10*3/uL High 2.0-7.7 [facility] Anion gap in Serum or Plasma Ordered By: Lázaro Abraham on 01-24-2025 Anion gap [Moles/Vol] 10 mmol/L 5-15 [facility] Automated lymphocyte count a s percentage of total leukocytesOrdered By: Lázaro Abraham on 01-24-2025 Lymphocytes/100 WBC Auto (Unsp spec) 9.5 % Low 19-41 [facility] BUN/creatinine ratioOrdered By: Lázaro Abraham on 01-24-2025 Urea nitrogen/Creatinine [Mass ratio] 11.7 mg/mg 10-20 [facility] Basophil percentageOrdered B y: Lázaro Abraham on 01-24-2025 Basophils/100 WBC (Bld) 0.2 % 0-1 [facility] Carbon dioxide, total [Moles /volume] in Central venous bloodOrdered By: Lázaro Abraham on 01-24-2025 CO2 [Moles/Vol] 26.8 mmol/L 21.0-32.0 [facility] Chloride assayOrdered By: Yang Abraham on 01-24-2025 Chloride [Moles/Vol] 103 mmol/L 98-108 [facility] Eosinophil percentageOrdered By: Lázaro Abraham on 01-24-2025 Eosinophils/100 WBC (Bld) 1.0 % 0-5 [facility] Erythrocyte distribution wid th ratioOrdered By: Lázaro Abraham on 01-24-2025 Erythrocyte distribution width (RBC) [Ratio] 12.1 % 11.6-14.6 [facility] Erythrocyte distribution wid th standard deviationOrdered By: Lázaro Abraham on 01-24-2025 Erythrocyte distribution width (RBC) [Ratio] 37.4 fl 35.1-43.9 [facility] Glomerular filtration rate ( GFR) estimation/1.73 sq m using serum, plasma, or whole bOrdered By: Lázaro Abraham on 01-24-2025 GFR/1.73 sq M.predicted among non-blacks MDRD (S/P/Bld) [Vol rate/Area] 122 mL/min/{1.73_m2} >60 [facility] Comment on above: mL/min/1.73m2 CKD-EP I Creatinine Equation (2020) Hematocrit Auto (Bld) [Volum e fraction]Ordered By: Lázaro Abraham on 01-24-2025 Hematocrit (Bld) [Volume fraction] 42.8 % 40-54 [facility] Hemoglobin measurementOrdere d By: Lázaro Abraham on 01-24-2025 Hemoglobin (Bld) [Mass/Vol] 14.3 g/dL 13.0-16.5 [facility] Immature granulocytes/100 WB C Auto (Bld)Ordered By: Lázaro Abraham 01-24-2025 Immature granulocytes/100 WBC (Bld) 0.300 % 0.0-0.9 [facility] Comment on above: IG% - Immature Granu locytes (promyelocytes, myelocytes and metamyelocytes) > 1% indicates that a LEFT SHIFT is Present. MCV (mean corpuscular volume ) determinationOrdered By: Lázaro Abraham on 01-24-2025 MCV (RBC) [Entitic vol] 84.9 fL 80-94 [facility] Mean corpuscular hemoglobin (MCH) determinationOrdered By: Lázaro Abraham 01-24-2025 MCH (RBC) [Entitic mass] 28.4 pg 27.0-32.0 [facility] Mean corpuscular hemoglobin concentration (MCHC) determinationOrdered By: Lázaro Abraham 01-24-2025 MCHC (RBC) [Mass/Vol] 33.4 g/dL 32-36 [facility] Mean platelet volume determi nationOrdered By: Lázaro Abraham on 01-24-2025 Platelet mean volume (Bld) [Entitic vol] 11.3 fL 6.2-12.0 [facility] Monocyte percentageOrdered B y: Lázaro Abraham on 01-24-2025 Monocytes/100 WBC (Bld) 8.4 % 0-10 [facility] Neutrophil percentageOrdered By: Lázaro Abraham on 01-24-2025 Neutrophils/100 WBC (Bld) 80.6 % High 47-70 [facility] Nucleated red blood cell per centageOrdered By: Lázaro Abraham on 01-24-2025 Nucleated RBC/100 WBC (Bld) [Ratio] 0 % 0-5 [facility] Platelet countOrdered By: Yang Abraham on 01-24-2025 Platelets (Bld) [#/Vol] 210 10*3/uL 150-450 [facility] Potassium measurement (mass/ volume)Ordered By: Lázaro Abraham on 01-24-2025 Potassium (Unsp spec) [Mass/Vol] 3.6 mmol/L 3.3-5.1 [facility] RBC Auto (Bld) [#/Vol]Ordere d By: Lázaro Abraham on 01-24-2025 RBC (Bld) [#/Vol] 5.04 10*6/uL 4.6-6.2 [facility] Serum creatinine measurement (mass/volume)Ordered By: Lázaro Abraham on 01-24-2025 Creatinine [Mass/Vol] 0.81 mg/dL 0.70-1.20 [facility] Serum glucose measurement (m ass/volume)Ordered By: Lázaro Abraham on 01-24-2025 Glucose [Mass/Vol] 94 mg/dL 70-99 [facility] Serum or plasma calcium jeffrey urement (mass/volume)Ordered By: Lázaro Abraham on 01-24-2025 Calcium [Mass/Vol] 9.2 mg/dL 7.6-11.0 [facility] Serum or plasma urea nitroge n measurement (mass/volume)Ordered By: Lázaro Abraham on 01-24-2025 Urea nitrogen [Mass/Vol] 9 mg/dL 4-19 [facility] Sodium levelOrdered By: Lázaro Abraham on 01-24-2025 Sodium [Moles/Vol] 139 mmol/L 133-145 [facility] White blood cell (WBC) count Ordered By: Lázaro Abraham on 01-24-2025 WBC (Bld) [#/Vol] 10.4 10*3/uL 4.4-11.0 [facility] Office Visit (Urology)on Follow-up visit Diagnoses/Problems Assessed Scrotal abscess (608.4) (N49.2) Non-smoker (V49.89) (Z78.9) Orders Scrotal abscess Follow-up visit in 6 months Outpatient Follow-up 6 MO F/U Status: Hold For - Scheduling,Retrospective By Protocol Authorization Requested for: 01Sep2022 Ordered Stat;For: Scrotal abscess; Ordered By: Cathy Ontiveros Performed: Due: [id number]; Last Updated By: Felipe Gibbs; 09/01/2022 10:38:24 [...] scrotal abscess. S/P I ANDDL scrotum abscess 03/17/23. Drain tube was removed 08/02. Pt states [...] 1 CAPSULE Daily Vitals Vital Signs Recorded: [id number] 10:27AM Heart Rate75 Rxxnjiim344 Oebeokdun99 Mkkrhp548 lb 0.6 oz BMI Pwjvaqzwet75.57 kg/m2 BSA Calculated2.02 Tobacco Useb) No PHQ-2 [...] a) No falls within the last year UG-Cwjissx-H [employer] Work Phone: Tobacco use status [facility] b) No IZ-Gnlifje-M [employer] Work Phone: Tobacco Screening. Yes MP-Uro logy-A [employer] Phone: Office Visit (Cardiology)on 08-31-2022 Follow-up visit Diagnoses/Problems Assessed Elevated blood pressure reading (796.2) (R03.0) Orders Atypical chest pain IO EKG Electrocardiogram- 12 Lead; Status:Complete; Done: 31Aug2022 Chief Complaint Chest discomfort History of Present Fbwkkjq57-krim-vdt gentleman who was recently evaluated in the emergency department for chest discomfort; in the setting of receiving his COVID booster vaccine Chest pressure -started 90 minutes after receiving his COVID booster vaccine. Lasted 24-48 hours. Described as sharp and severe; unremitting chest discomfort with no relief with position/palpation/respir ation -Pain has since resolved. With activities of daily living he denies any chest discomfort or shortness of breath. Denies any orthopnea/PND/lower extremity edema. Denies any dizziness/lightheadedness . EKG notes normal sinus rhythm with early [...] Vital Signs Recorded: 31Aug2022 11:15AM Heart Rate80 Ldmxmxof262 Mjwtvfthh26 Height6 ft 2 in Ljtbuz611 lb 5 oz BMI Nndrzpwyta79.87 kg/m2 BSA Calculated2.03 Tobacco Useb) No Falls Screening (Age 18+)a) No falls within the last year O2 Hsyulvxkme71 Physical Exam General: AANDOx3 HEENT: NC/AT; EOMI; PERRLA, external ear is normal Neck: supple; no JVD Chest: CTAB; no wheezing CVS: S1S2 normal, no murmurs Abdomen: Soft, NT/ND, no organomegaly Extremities: no clubbing/cyanosis/edema Neuro: Grossly intact Results/Data Electrocardiogram 12 Ymuc60Iot8309 04:40PMNon Ambulatory, Provider Test NameResultFlagReference Ventricular Rate77 Atrial Rate77 RI-Ezbeazte292 QRS Laetxyax45 Q-T Bsyjfpcu475 QTC Dyeiqmaabyr568 P Axis77 Diagnosis Please see physician note for formal interpretation confirmed by Scribe R Axis61 T Axis52 QRS Count13 Q Rtupd535 P Kbbhf762 P Iqkmgb622 T Vxkoew380 QTC Aaaombsasa687 MUSEIMAGE [email or web address] 0/musescripts/Rive Technologyweb.dll ?RetrieveTestByDateTime?P pqsldtPB=[id number] =[id number]=16%3a4 0%3a56%9k85OYMKaqfOidq=DD GANDSite=14ANDOutputType= PDFANDExt=PDF Diagnosis ClassNormal Troponin I, Ntetc43Flu6278 04:16PMNon Ambulatory, Provider Ordering Provider: MIKHAIL SIDDIQUI 27456 Test NameResultFlagReference Troponin I, Serum<0.02 ng/mLSee Below [...] is performed using different testing methodology at [facility] than at other [facility]. Direct result comparisons should only be made within the same method. Towlwqivjaudyd00Jfu0589 03:51PMNon Ambulatory, Provider Test NameResultFlagReference Echocardiogram(Report) [place] [address] ext-2528, TRANSTHORACIC ECHOCARDIOGRAM REPORT Patient Name: DAVID Hart Alison Physician: [id number] Taran Deleon MD Study Date: 07/22/2021 Referring 17193 NAYELY RATLIFF Physician: MRN/PID: [id number] PCP: (more content not included)... Normal [employer] Tobacco Screening.on 023 Fall risk assessment a) No falls within the last year GE-Bbtjwiw-C [employer] Work Phone: Tobacco use status CPHS b) No KX-Locsmwv-K [employer] Work Phone: Office Visit (Urology)on Follow-up visit [...] Vital Signs Recorded: 04Aug2022 11:01AM Heart Rate82 Ihilnyhd271 Fxhwfmhvu12 Ubjyzf902 lb 4 oz BMI Wrcutbqbur34.86 kg/m2 BSA Calculated2.03 Tobacco Useb) No PHQ-2 [...] Aug 04 2022 11:19AM EST (Author) Normal [employer] Tobacco Screening.on 023 Fall risk assessment a) No falls within the last year DH-Bpbuwrs-U [employer] Phone: Tobacco use status [facility] b) No MO-Vkksqit-K [employer] Phone: Tobacco Screening. Yes MP-Uro logy-A [employer] Phone: Cult, Misc + smearon 023 Bacteria identified Cx Nom (Unsp spec) Abnormal MM-Bmbxgib-M [employer] Phone: MISCELLANEOUS CULT./SM.BACT. on 07-29-2022 MISCELLANEOUS CULT./SM.BACT. PATIENT: DAVID NOLASCO LOCATION: [facility]#: [id number] : [birth year] AGE: SEX: M ORDERED BY: ACTHY ONTIVEROS SOURCE: WOUND/ABSCESS COLLECTED: 07/29/22 11:50 ANTIBIOTICS [...] Gent Synergy S Penicillin S Vancomycin S ___ S=SUSCEPTIBLE I=INTERMEDIATE R=RESISTANT SDD=SUSCEPTIBLE DOSE DEPENDENT NS=NONSUSCEPTIBLE X=REPORTED IN ERROR ___ [facility] Comment on above: Performed By: #### M [facility] #### [facility] [address] [place] [address] No Panel Informationon 07-29 CX-Tgeyznn-U [employer] Work Phone: Order Reconciliationon 07-29 Order Reconciliation Page 1 Discharge Reconciliation Document Reconciliation Type: Discharge requested on behalf of Cathy Ontiveros (Physician) done by Catyh Ontiveros) Discharge - Reconciliation: 29-Jul-2022 10:39 by: [...] be shared with your follow-up providers (doctor, bridge/structure inspection team leader, physical therapist, etc.). Follow Up with Dr. [...] 100 degress, increasing (more content not included)... [facility] Patient Profile - Preop v3on 07-29-2022 Patient Profile - Preop v3 Patient Profile - Preop: Initial Info: Patient DemographicsName: DAVID NOLASCO Date: 1995 Address: [address] [place] [address] Primary Phone [phone] How to be AddressedTed Spoken Language PreferredEnglish Stated Reason for Admissionabscess on my scrotum fixed Primary Contact Name and [id number] Medications Brought to Hospitalno General Health: Weight in kg77.7 kilogram(s) Weight in iyc218.2 pound(s) Weight Methodactual (measured) Scale Typestanding Height in feet6 feet Height in inches3.94 inch(es) Height in cm192.8 centimeter(s) Height Methodstated BMI (kg/m2)20.902 square meter Patient or Family Member Reaction to Anesthesiano previous reaction Blood Avoidance/Restrictionsnon e Previous Transfusion Reactionnot applicable Health Mgmt: Symptoms/Conditions Managed at [facility] Barriers to Managing Healthnone Relationship/Environ: Lives Withalone Living Arrangementshouse Resource/Environmental Concernsnone Anticipated Transition [employer] Services Anticipated at Transitionnone Tobacco Use: Tobacco Useno Pre-op Checklist: Arrival Oees92-Ycz-1656 Arrival Time10:03 Procedure Typeincision and drainage scrotal abscess on left side NPOyes Last Food Mmlsde89-Orv-3897 23:59 Last Clear Fluid Bfaefq16-Czh-4598 23:59 ID Band On Patientpatient ID (name) [...] Allergy Status Unknown: Active Electronic Signatures: Emily Johnson (NARINDER) (Signed 29-Jul-2022 10:27) Authored: Initial Info, General Health, Health Mgmt, Relationship/Environ, Tobacco Use, Pre-op Checklist, Additional Information Last Updated: 29-Jul-2022 10:27 by Emily Johnson (NARINDER) [facility] 07-29-2022 [facility] Surgical Pathology Department Name DAVID NOLASCO Pathologist: SONU DE OLIVEIRA M.D. Date of Procedure: 07/29/2022 Date Received: 07/29/2022 Date Reported 08/16/2022 Submitting Physician: CATHY MEDINA MD, MPH Location: [facility] Other External # FINAL DIAGNOSIS A. LEFT SCROTAL ABSCESS, EXCISION: -- FRAGMENTS OF FIBROUS TISSUE WITH ACUTE AND CHRONIC INFLAMMATION ASSOCIATED WITH FOCAL ABSCESS FORMATION. Electronically Signed Out By SONU DE OLIVEIRA M.D./ADRP By the signature on this report, the individual or group listed as making the Final Interpretation/Diagnosis certifies that they have reviewed this case. Diagnostic interpretation performed at [address] [address] Clinical History: Physician Contact Number: [phone] Fixative (A): Formalin Clinical Diagnosis History N49.2 Inflammatory disorders of scrotum Specimens Submitted As: A: LEFT SCROTAL ABSCESS Gross Description: Received in formalin, labeled with the patient's name and hospital number and left scrotal abscess, are two fragments of firm espinosa-brown tissue aggregating to 2.5 x 1.9 x 1.9 cm. Serial sectioning reveals a heterogeneous espinosa-white, gupy-of-ogja cut surface. Meeting Planner sections are submitted in one cassette. HHD hhd/08/11/2022 [facility] Department of Pathology [address] [place] [address] Normal [facility] Comment on above: Performed By: #### U [facility] #### [facility] Surgical Pathology Department [address] [place], [place] [id number] Office Visit (Urology)on Follow-up visit Diagnoses/Problems Assessed [...] Vital Signs Recorded: 28Jul2022 01:58PM Heart Rate80 Vwxhwsoj256 Gnzquwwev72 Nwnksq895 lb 4 oz BMI Okjgrexnft81.73 kg/m2 BSA Calculated2.02 Tobacco Useb) No PHQ-2 [...] 8:07AM EST (Author) Normal [employer] Tobacco Screening.on Fall risk assessment a) No falls within the last year QE-Tklfhwc-R [employer] Work Phone: Tobacco use status CPHS b) No MQ-Jgzucax-F [employer] Work Phone: Tobacco Screening. Yes MP-Uro logy-A [employer] Work Phone: Office Visit (Urology)on Follow-up visit [...] Vital Signs Recorded: 25Jul2022 11:50AM Heart Rate78 Zgayhfbe500 Adhkmpoou52 Sadusw523 lb 0.6 oz BMI Vzgcctyzxn51.96 kg/m2 BSA Calculated2.03 Tobacco Useb) No PHQ-2 [...] or d (more content not included)... Normal [facility] Radiologyon 07-25-2022 US.doppler Scrotum and testicle Normal ZO-Kgxnwtq-X [employer] Work Phone: Tobacco Screening.on 023 Fall risk assessment a) No falls within the last year CJ-Xvpbccn-W [employer] Phone: Tobacco use status [facility] b) No HD-Ymutzko-U [employer] Phone: Tobacco Screening. Yes MP-Uro logy-A [employer] Phone: US SCROTUM WITH DOPPLERSon 0 07-25-2022 US SCROTUM WITH DOPPLERS Patient Name: DAVID NOLASCO STUDY: US SCROTUM WITH DOPPLERS; 07/25/2022 2:49 pm INDICATION: Scrotal Abscess N49.2: Scrotal abscess. COMPARISON: None. ACCESSION NUMBER(S): [id number] ORDERING CLINICIAN: CATHY SANCHEZ TECHNIQUE: Multiple ultrasonographic [...] cyst. Electronically signed by: MARIN BENNETT MD [facility] Emergency Department Summary on 07-17-2022 Emergency Department Summary [facility] Medical Records Department [address] [place] [address] Emergency Department Summary 07/17/22 MR#: [id number] Acct: [id number] Name: DAVID MOJICA Rep #: [id number] : 1995 27 From: Yann Cline MD PCP: Dr. Mark Mercer MD Status:REG [...] sounds like he has had epididymitis before. [facility] Medical History Foreign body in urethra, initial encounter Gross hematuria Migraines Non-smoker Home Medications dextroamphetamine-ampheta mine ER 15 mg 24hr capsule,extend release 15 [...] reddish-black shahbaz (more content not included)... Normal [facility] Emergency Department Summary on 05-17-2022 Emergency Department Summary [facility] System Medical Records Department [address] [place] [address] Emergency Department Summary 05/17/22 MR#: [id number] Acct: [id number] Name: DAVID MOJICA Rep #: [id number] : 1995 26 From: Naresh Dorado MD [...] encounter Gross hematuria Migraines Non-smoker Home Medications dextroamphetamine-ampheta mine ER 15 mg 24hr capsule,extend release 15 [...] non-tender, no (more content not included)... Normal [facility] Tobacco Screening.on 022 Fall risk assessment a) No falls within the last year [facility] [address] Work Phone: Tobacco use status CP b) No [facility] [address] Work Phone: C Urineon 10-15-2017 C Urine Final Report: Rare g rowth of Mixed skin contaminants Normal [facility] Comment on above: Performed By: #### [id number] ####AGUSTINA Microbiology [id number] [place] [address] POC Urinalysis Dip POCon POC Bilirubin Small 1+ Abnormal Negative [facility] Comment on above: Performed By: #### C D:[id number] ####AGUSTINA POC [id number] [place] [address] POC Blood Trace Abnormal Negative [facility] Comment on above: Performed By: #### C D:[id number] ####AGUSTINA POC [address] [place] [address] POC Clarity Cloudy Abnormal CLEAR [facility] Comment on above: Performed By: #### C D:[id number] ####AGUSTINA POC [address] [place] [address] POC Color Dark Yellow Abnormal Yellow [facility] Comment on above: Performed By: #### C D:[id number] ####AGUSTINA POC [address] [place] [address] POC Glucose Negative Normal Negative [facility] Comment on above: Performed By: #### C D:[id number] ####AGUSTINA POC [address] [place] [address] POC Ketone 5mg/dl Trace Abnormal Negative [facility] Comment on above: Performed By: #### C D:[id number] ####AGUSTINA POC [address] [place] [address] POC Leukocyte Trace Normal Negative [facility] Comment on above: Performed By: #### C D:[id number] ####AGUSTINA POC [address] [place] [address] POC Nitrite Negative Normal Negative [facility] Comment on above: Performed By: #### C D:[id number] ####AGUSTINA POC [address] [place] [address] POC pH 5.5 mg/dL Normal 5.0-8.0 [facility] Comment on above: Performed By: #### C D:[id number] ####AGUSTINA POC [address] [place] [address] POC Specific [place] 1.025 mg/dL Normal 1.005-1.[address] [facility] Comment on above: Performed By: #### C D:[id number] ####AGUSTINA POC [address] [place] [address] POC Urobilinogen 0.2 EU/dL Normal 0.2-1.0 [facility] Comment on above: Performed By: #### C D:[id number] ####AGUSTINA POC [address] [place] [address] Protein mass conc Trace Abnormal Negative [facility] Comment on above: Performed By: #### C D:[id number] ####AGUSTINA POC [address] [place] [address] Vital Signs Date Time Vital Sign Value Performing Clinician Facility 01-24-2025 21:16-0400 Body temperature 97.9 [degF] No Primary Care Physician [facility] 01-24-2025 21:16-0400 Diastolic blood pressure 77 mm[Hg] No Primary Care Physician [facility] 01-24-2025 21:16-0400 Heart rate 84 /min No Primary Care Physician [facility] 01-24-2025 21:16-0400 Respiratory rate 15 /min No Primary Care Physician [facility] 01-24-2025 21:16-0400 SaO2% (BldA) [Mass fraction] 100 % No Primary Care Physician [facility] 01-24-2025 21:16-0400 Systolic blood pressure 136 mm[Hg] No Primary Care Physician [facility] 01-24-2025 20:42-0400 Body height 187.96 cm No Primary Care Physician [facility] 01-24-2025 20:42-0400 Body mass index (BMI) [Ratio] 20.8 kg/m2 No Primary Care Physician [facility] 01-24-2025 20:42-0400 Body weight 73.52 kg No Primary Care Physician [facility] 09-01-2022 10:27-0400 Body mass index (BMI) [Ratio] 21.57 kg/m2 Sara L Hellinger Work Phone: KK-Cjqawlf-Pkwhvyr Work Phone: 09-01-2022 10:27-0400 Body surface area Derived from formula 2.02 m2 Sara L Hellinger Work Phone: UU-Dxqvljx-Kpxoqiz Work Phone: 09-01-2022 10:27-0400 Body weight 76.22 kg Sara L Hellinger Work Phone: US-Happnje-Tpoecnt Work Phone: 09-01-2022 10:27-0400 Diastolic blood pressure 98 mm[Hg] Sara L Hellinger Work Phone: BB-Nphsgxx-Kryajwt Work Phone: 09-01-2022 10:27-0400 Heart rate 75 /min Sara L Hellinger Work Phone: HR-Kirwsss-Pufauky Work Phone: 09-01-2022 10:27-0400 Systolic blood pressure 153 mm[Hg] Sara L Hellinger Work Phone: UM-Sgghzkd-Epvmlvm Work Phone: 08-31-2022 11:15-0400 Body height 187.96 cm Sara L Hellinger Work Phone: EJ-Gchljnn-Vdkyjle Work Phone: 08-31-2022 11:15-0400 Body mass index (BMI) [Ratio] 21.87 kg/m2 Sara L Hellinger Work Phone: RG-Crkqyxp-Mnpcnzg Work Phone: 08-31-2022 11:15-0400 Body surface area Derived from formula 2.03 m2 Sara L Hellinger Work Phone: EF-Oglvlxg-Ejbpslv Work Phone: 08-31-2022 11:15-0400 Body weight 77.25 kg Sara Schaefer Hellinger Work Phone: VC-Azcculh-Ukbrpom Work Phone: 08-31-2022 11:15-0400 Diastolic blood pressure 76 mm[Hg] Sara L Hellinger Work Phone: TF-Hzvckig-Xkhldvn Work Phone: 08-31-2022 11:15-0400 Heart rate 80 /min Sara L Capture Medialinger Work Phone: QK-Uhthkyp-Dwlwztc Work Phone: 08-31-2022 11:15-0400 SaO2% (BldA) [Mass fraction] 98 % Sara Schaefer Capture Medialinger Work Phone: NT-Dsxybpa-Oqxgrve Work Phone: 08-31-2022 11:15-0400 Systolic blood pressure 142 mm[Hg] Sara L Hellinger Work Phone: EW-Iwjnegw-Wzomfiw Work Phone: 08-04-2022 11:01-0400 Body mass index (BMI) [Ratio] 21.86 kg/m2 Sara Joneslinger Work Phone: IR-Zzvmirb-Glqfasd Work Phone: 08-04-2022 11:01-0400 Body surface area Derived from formula 2.03 m2 Sara L Capture Medialinger Work Phone: ZH-Unpxcpd-Levdwll Work Phone: 08-04-2022 11:01-0400 Body weight 77.23 kg Sara L Hellinger Work Phone: VU-Bogkbhj-Qcvhcdd Work Phone: 08-04-2022 11:01-0400 Diastolic blood pressure 85 mm[Hg] Sara L Hellinger Work Phone: PM-Asamzle-Uevtdek Work Phone: 08-04-2022 11:01-0400 Heart rate 82 /min Sara L Hellinger Work Phone: WI-Rnvylal-Llmkdsu Work Phone: 08-04-2022 11:01-0400 Systolic blood pressure 136 mm[Hg] Sara L Hellinger Work Phone: RH-Vocixmr-Ngdcwxx Work Phone: 07-28-2022 13:58-0400 Body mass index (BMI) [Ratio] 21.73 kg/m2 Sara L Hellinger Work Phone: IM-Sgboedl-Vqpxwud Work Phone: 07-28-2022 13:58-0400 Body surface area Derived from formula 2.02 m2 Sara L Hellinger Work Phone: OD-Nocpuqg-Oltnocc Work Phone: 07-28-2022 13:58-0400 Body weight 76.77 kg Sara L Hellinger Work Phone: FW-Ofnhoek-Ymwkguv Work Phone: 07-28-2022 13:58-0400 Diastolic blood pressure 90 mm[Hg] Sara L Hellinger Work Phone: NF-Gjwdsnr-Fbywgoc Work Phone: 07-28-2022 13:58-0400 Heart rate 80 /min Sara L Hellinger Work Phone: YG-Byhcikg-Obsqqnm Work Phone: 07-28-2022 13:58-0400 Systolic blood pressure 160 mm[Hg] Sara L Hellinger Work Phone: DL-Udonpdu-Yjyjful Work Phone: 07-25-2022 11:50-0400 Body mass index (BMI) [Ratio] 21.96 kg/m2 Sara L Hellinger Work Phone: AH-Qfpxter-Luonprt Work Phone: 07-25-2022 11:50-0400 Body surface area Derived from formula 2.03 m2 Sara Coboser Work Phone: RD-Xugjdjq-Qmzdhql Work Phone: 07-25-2022 11:50-0400 Body weight 77.58 kg Sara Joneslinger Work Phone: CF-Omvfnlw-Lacczcb Work Phone: 07-25-2022 11:50-0400 Diastolic blood pressure 91 mm[Hg] Sara Joneslinger Work Phone: GW-Hzigwkw-Axtpzlv Work Phone: 07-25-2022 11:50-0400 Heart rate 78 /min Sara Coboser Work Phone: CS-Agwfnyz-Neqdisv Work Phone: 07-25-2022 11:50-0400 Systolic blood pressure 154 mm[Hg] Sara Coboser Work Phone: GI-Avwjagy-Kjdruvm Work Phone: 05-17-2022 00:29-0500 Body height 187.96 cm [facility] Work Phone: 05-17-2022 00:29-0500 Body mass index (BMI) [Ratio] 21.2 kg/m2 [facility] Work Phone: 05-17-2022 00:29-0500 Body temperature 97.4 [degF] [facility] Work Phone: 05-17-2022 00:29-0500 Body weight 75 kg [facility] Work Phone: 05-17-2022 00:29-0500 Diastolic blood pressure 78 mm[Hg] [facility] Work Phone: 05-17-2022 00:29-0500 Heart rate 90 /min [facility] Work Phone: 05-17-2022 00:29-0500 Respiratory rate 18 /min [facility] Work Phone: 05-17-2022 00:29-0500 SaO2% (BldA) [Mass fraction] 99 % [facility] Work Phone: 05-17-2022 00:29-0500 Systolic blood pressure 155 mm[Hg] [facility] Work Phone: 09-01-2021 11:36-0400 Body height 187.96 cm Sara L Hellinger Work Phone: FV-Evfdbifmbx-Nbcs and [address] Work Phone: 09-01-2021 11:36-0400 Body mass index (BMI) [Ratio] 21.31 kg/m2 Sara L Hellinger Work Phone: BP-Xxvtzmhsjy-Xtnb and [address] Work Phone: 09-01-2021 11:36-0400 Body surface area Derived from formula 2.01 m2 Sara L Capture Medialinger Work Phone: AI-Jeezoockiq-Bjas and [address] Work Phone: 09-01-2021 11:36-0400 Body weight 75.3 kg Sara L Hellinger Work Phone: HF-Rjiiaicwst-Dkba and [address] Work Phone: 09-01-2021 11:36-0400 Diastolic blood pressure 72 mm[Hg] Sara L Hellinger Work Phone: RC-Szznnuefum-Mkhk and [address] Work Phone: 09-01-2021 11:36-0400 Heart rate 66 /min Sara L Hellinger Work Phone: AN-Sasekoradg-Ohbk and [address] Work Phone: 09-01-2021 11:36-0400 SaO2% (BldA) [Mass fraction] 99 % Sara L Hellinger Work Phone: HZ-Vpmcmavxkn-Lgxm and [address] Work Phone: 09-01-2021 11:36-0400 Systolic blood pressure 118 mm[Hg] Sara L Hellinger Work Phone: OV-Lqromfvekc-Nros and [address] Work Phone: 07-22-2021 19:30-0500 Diastolic blood pressure 77 mm[Hg] Sara Hellinger Other Phone: [facility] 07-22-2021 19:30-0500 Heart rate 77 /min Sara Hellinger Other Phone: [facility] 07-22-2021 19:30-0500 Respiratory rate 18 /min Sara Hellinger Other Phone: [facility] 07-22-2021 19:30-0500 SaO2% (BldA) [Mass fraction] 99 % Sara Hellinger Other Phone: [facility] 07-22-2021 19:30-0500 Systolic blood pressure 127 mm[Hg] Sara Hellinger Other Phone: [facility] 07-22-2021 17:46-0500 Body height 187.9 cm Sara Hellinger Other Phone: [facility] 07-22-2021 17:46-0500 Body temperature 99.32 [degF] Sara Hellinger Other Phone: [facility] 07-22-2021 17:46-0500 Body weight 73 kg Sara Hellinger Other Phone: [facility] Encounters Encounter Date Encounter Type Care Provider Facility Start: 01-24-2025 Non-patient / Non-visit Dr. Vilma Cummins MD -[facility] Start: 01-24-2025 End: 09-12-2025 Emergency department patient visit No Primary Care Physician -Emergency Department Work Phone: Start: 09-01-2022 Office outpatient vi sit 15 minutes Sara Coboser Work Phone: AW-Fpjlzsw-Ebkzvne Work Phone: Start: 09-01-[address] Cathy Medina Fa cility:[id number] Start: 08-31-2022 ambulatory MD CLEMENCIA Cornejo lity:[id number] Start: 08-17-2022 Chart Update Sara Balderrama satya Work Phone: FT-Guejnlz-Gjmjexc Work Phone: Start: 08-04-[address] Cathy Medina Fa cility:[id number] Start: 08-04-2022 FUV, Provider: Cathy Ontiveros, Status: Pen, Time: 10:00 AM Sara Gruber Work Phone: OK-Rmoprmb-Xwbqbgp Work Phone: Start: 08-04-2022 Office outpatient vi sit 15 minutes Sara Coboser Work Phone: MQ-Rmdadob-Jxyacxt Work Phone: Start: 08-02-[address] Cathy Medina Fa cility:[id number] Start: 08-02-2022 Patient encounter procedure Sara Gruber Work Phone: OX-Lufrcqa-Pzpeyle Work Phone: Start: 07-29-2022 End: 07-29-[address] Cathy Medina Facility:[id number] Start: 07-28-[address] Cathy Medina Fa cility:[id number] Start: 07-28-2022 Office outpatient vi sit 15 minutes Sara Coboser Work Phone: LH-Zpiermn-Cpqbbgp Work Phone: Start: 07-25-2022 ambulatory SARA GRUBER Fac ility:[id number] Start: 07-25-2022 Office outpatient ne w 45 minutes Sara Coboser Work Phone: IK-Teecasv-Rymqrqp Work Phone: Start: 07-25-[address] Cathy Medina Fa cility:[id number] Start: 07-17-2022 End: 07-17-2022 Emergency department patient visit Mrak Mercer Facility:[facility] Start: 05-17-2022 End: 05-17-2022 Emergency department patient visit Naresh Dorado Facility:[facility] Start: 05-17-2022 End: 05-17-2022 Emergency department patient visit [facility]-Emergency Department Start: 09-01-2021 Office outpatient ne w 45 minutes Sara Gruber Work Phone: TF-Vbbtlaqmei-Pxczluo [address] Work Phone: Start: 07-22-2021 End: 07-22-2021 Emergency department patient visit Mikhail Siddiqui [facility] Emergency 02 Start: 10-13-2017 End: 10-14-2017 Patient encounter procedure Crescencio Olson Facility:[facility] Procedures Date Procedure Procedure Detail Performing Clinician Start: 01-24-2025 Estimated creatinine clearance No Primary Care Physician Start: 01-24-2025 Plain X-ray abdomen No Primary Care Physician Start: 07-22-2021 End: 07-22-2021 EKG impression Mikhail Siddiqui Start: 07-22-2021 End: 07-22-2021 EKG impression Mikhail Siddiqui Appendectomy Sara Schaefer Helling er Work Phone: Leg repair Sara L Helling er Work Phone: Operation on scrotum Sara Joneslinger Work Phone: Plan of Treatment Date Care Activity Detail Author Start: 03-06-2023 FUV, Provider: Cathy Ontiveros, Status: Pen, Time: 10:15 AM FUV, Provider: Cathy Ontiveros, Status: Pen, Time: 10:15 AM NB-Dqdiezt-Qkegfgl Work Phone: Start: 09-01-2022 FUV, Provider: Cathy Ontiveros, Status: Pen, Time: 10:15 AM FUV, Provider: Cathy Ontiveros, Status: Pen, Time: 10:15 AM CM-Gyqkmoj-Xcxjntl Work Phone: Start: 08-31-2022 FUV, Provider: Clemencai Irwin, Status: Pen, Time: 10:45 AM FUV, Provider: Clemencia Irwin, Status: Pen, Time: 10:45 AM VX-Wilescossq-Ohsqdd [address] Work Phone: Start: 07-28-2022 FUV, Provider: Cathy Ontiveros, Status: Pen, Time: 1:45 PM FUV, Provider: Cathy Ontiveros, Status: Pen, Time: 1:45 PM TD-Ytguhwr-Luircdf Work Phone: Start: 07-22-2021 End: 07-23-2022 Perflutren [...] Saline. Start: 22-Jul-2021 End: 22-Jul-2022 Ordered: 22-Jul-2021 Moomaw, Nayely I Intent Comments: 1. Dilute 1.3 mL [...] line with 10 mL of Normal Saline. [facility] Comment on above: 1. Dilute 1.3 mL [...] Saline. Patient Education ED Dizziness, Uncertain Cause [facility] Work Phone: Patient referral [facility] Work Phone: Immunizations Immunization Date Immunization Notes Care Provider Silver connolly 01-02-2018 tetanus toxoid, redu ricardo diphtheria toxoid, and acellular pertussis vaccine, adsorbed [facility] Payers Date Payer Category Payer Medicaid [id number] 2022 Self-pay [id number] 2022 Unknown [id number] 2017 Unknown 1995 Unknown [id number] 2.16.84 [id number] 1995 Unknown [id number] 2.16.84 [id number] 1995 Unknown [id number] 2.16.8 [id number] 1995 Unknown [id number] 2.16.8 40.1.157644.3.579.2.9 1994 Unknown [id number] 2.16. [id number] 1994 Unknown [id number] 2.16. [id number] 1994 Unknown [id number] 2.16. [id number] 1994 Unknown [id number] 2.16. 840.1.173869.3.579.2.356 1994 Unknown [id number] 2.16. [id number] 1995 Unknown [id number] 2.16. [id number] Unknown [facility] [id number] Unknown [id number] 2.16.8 [id number] Unknown [id number] 2.16.8 [id number] Social History Date Type Detail Facility [facility] Start: 05-17-2022 Tobacco smoking consumption unknown [facility] Consumes alcohol occasionally Consumes alcohol occasionally CR-Goeiknfnam-Syvtnbq [address] Work Phone: Start: 06-01-2019 None [facility] Start: 06-01-2019 Alone [facility] Start: 1995 Sex Assigned At Male [facility] Start: 01-24-2025 Tobacco smoking status NHIS Never smoked tobacco (finding) [facility] Mental Status Date Assessment Result Facility 01-24-2025 Cognitive function Level Of Cons ciousness Awake;Alert;Appropriate;Follow s Commands [facility] Work Phone: 05-17-2022 Cognitive function Level Of Cons ciousness Awake;Alert;Appropriate;Follow s Commands [facility] Work Phone: Clinical Notes 07-29-2022 to 01-24-2025 Note Date & Type Note Facility 01-24-2025 History and physi natalie note [facility] 01-24-2025 Radiology Diagnostic study note [facility] Services [address], [place] [address] Acute Abdomen Inc Chest MR#: [id number] Acct: [id number] Name: DAVID MOJICA Rep #: [id number] : 1995 M 29 From: Annamarie Seth MD PCP: Care Physician,No Primary Status: REG ER Study:Acute Abdomen Inc Chest Date of Exam: 01/24/25 Exam# [id number] Ordering Dr: Lázaro Abraham DO PROCEDURE: ACUTE ABDOMEN INC CHEST 01/24/2025 REASON FOR EXAM: PAIN TECHNIQUE: Procedure Code: RADABDCA Modality: DX Procedure: ACUTE ABDOMEN INC CHEST COMPARISON: None. FINDINGS: LUNGS: No focal airspace consolidation. PLEURAL SPACES: No pleural effusion. No pneumothorax. HEART: The heart size is normal. MEDIASTINUM: Unremarkable. PERITONEUM: No appreciable free air. BOWEL: Radiodense object with smooth margins in the medial left lower abdomen measuringapproximately 5.9 (diameter) x 9.1 (length) cm. The bowel gas pattern is unremarkable. No bowel obstruction. Moderate stool in the ascending and transverse colon. BONES: No acute osseous abnormality. RAD/Acute Abdomen Inc Chest IMPRESSION: Radiodense foreign body projected over the medial left lower abdomen, possibly located in the sigmoid colon. Reading Location: [id number] CC: Dr. Lázaro Abraham DO; No Primary Care Physician ~ Security Solutions Architect: Signed [facility] 01-24-2025 Evaluation note Diagnosis Onset Date Resolution Foreign body anus/rectum acute January 24, 2025 4:14pm [facility] Work Phone: 1(715) 569-859003-17-2023 History of Present illness NarrativeHx of scrotal abscess. S/P I &DL scrotum abscess 07/29/22. Drain tube was removed 08/02. Pt does still have packing. Pt states he has had no issues since having drain tube removed. No pain.ED-Rewbiaz-Nliqzpp Work Phone: 1(910) 757-406503-17-2023 History of Present illness NarrativePatient presents to the office today for a 1 MO F/U. Hx of scrotal abscess. S/P I &DL scrotum abscess 07/29/22. Drain tube was removed 08/02. Pt states he has had no issues since having drain tube removed. No pain. Renal US(07/25/2022)...incision is healing well. no drainage, no pain.EI-Wsltaqj-Nvdallp Work Phone: 1(891) 620-262403-17-2023 NotePROCEDURE DETAILS Preoperative Diagnosis: Left scrotal abscess Postoperative Diagnosis: Left scrotal abscess Surgeon: Dr. Medina Resident/Fellow/Other Oral Pathologist: none Procedure: Scrotal exploration I&D of left [...] Completion Last Updated: 29-Jul-2022 12:25 by Cathy Ontiveros)[facility]03-17-2023 NoteHistory & Physical Reviewed: I have reviewed the History and Physical [...] Completion Last Updated: 29-Jul-2022 07:52 by Cathy Ontiveros)[facility] noteNo assessment information availableWMiami Valley Hospital Work Phone: History and physical note Author Juan M Cummins [facility] Note Date/Time January 24, 2025 8:31pm [facility] Medical Records Department [address] [place] [address] H&P Exam - Surgical 01/24/252026 MR#: [id number] Acct: [id number] Name: DAVID MOJICA Rep #: [id number] : 1995 29 From: Juan M coronado MD PCP: Care Physician,No Primary Status :REG ER Location: ED HPI - General HPI Narrative DAVID MOJICA, is a 29 M who presents after placing a phallic device in his rectum 2 days ago. He has been unable to retrieve the device. He reports abdominal pain. He says he has been passing gas and had a small bowel movement. He denies nausea or vomiting. He denies fevers or chills. [facility] Medical History Gross hematuria Non-smoker Migraines Foreign body in urethra, initial encounter Home Medications ?Medication ?Instructions ?Recorded ?Last Taken ?Type dextroamphetamine-amphetamine ER 15 mg PO DAILY Unknown History 15 mg 24hr capsule,extend release fluoxetine 40 mg capsule (Prozac) 40 mg PO DAILY 05/17 Unknown History cephalexin 500 mg capsule 500 mg PO Q6 #40 CAPSULES Unknown Rx hydrocodone-acetaminophen 5-325mg 1 tab PO Q4H PRN PRN Pain 2 days 07/17/22 Unknown Rx 5mg-325mg #6 TABLETS sulfamethoxazole 800 1 tab PO BID #20 TABLETS 10/04 Unknown Rx mg-trimethoprim 160 mg tablet Allergy/AdvReac Type Severity Reaction Status Date / Time No Known Allergies Allergy Verified 01/24/25 16:15 Surgical History History of appendectomy Social History housing: house Smoking Status: Never smoker Vital Signs Vital Signs Vital Signs: 01/24/25 16:15 01/24/25 17:17 01/24/25 18:15 Temperature 97.7 F L Temperature Source Temporal Pulse Rate 93 78 Respiratory Rate 18 16 Respiratory Effort Normal Non-Labored Blood Pressure 120/77 134/78 H Blood Pressure Mean 91 96 Pulse Ox 100 98 Oxygen Delivery Method Room Air Room Air Weight Weight: 162 lb 1.6 oz Body Mass Index (BMI) 20.8 Physical Exam Const oriented x3 and no apparent distress Resp normal respiratory effort GI soft to palpation Palpation: tender LLQ and suprapubic Extremity normal to inspection Results Lab / Micro Data 01/24/25 18:30 01/24/25 18:30 Labs: Laboratory Results - last 24 hr 01/24/25 18:30: WBC 10.4, RBC 5.04, Hgb 14.3, Hct 42.8, MCV 84.9, MCH 28.4, MCHC33.4, RDW Std Deviation 37.4, RDW Coeff of Kenji 12.1, Plt Count 210, MPV 11.3, Immature Gran % (Auto) 0.300, Neut % (Auto) 80.6 H, Lymph % (Auto) 9.5 L, [place] %(Auto) 8.4, Eos % (Auto) 1.0, Baso % (Auto) 0.2, Absolute Neuts (auto) 8.4 H, Absolute Lymphs (auto) 0.99, Nucleated RBC % 0, Sodium 139, Potassium 3.6, Chloride 103, Carbon Dioxide 26.8, Anion Gap 10, BUN 9, Creatinine 0.81, Estim Creat Clear Calc 138.68, Est GFR (MDRD) Non-Af 122, BUN/Creatinine Ratio 11.7, Glucose 94, Calcium 9.2 Imaging Radiology Impression Acute Abdomen Series 01/24/25 18:15 IMPRESSION: Radiodense foreign body projected over the medial left lower abdomen, possibly located in the sigmoid colon. Reading Location: [facility] Assessment & Plan Assessment/Plan (1) Foreign body anus/rectum: PLAN: The patient has a foreign body in his sigmoid colon. He reports that it is approximately 12 inches long. I discussed steps to remove this with him. I will start with a colonoscopy to try to endoscopically remove the device. If I am unable to endoscopically remove the device I will convert to laparotomy and try to push it through distally. If that is unable to be done I will have to perform a colotomy and possible colectomy. I also discussed the possibility of having to perform a colostomy if there is too much stool or necrosis to perform an anastomosis. I discussed the risks of the procedure such as bleeding, infection, perforation of the colon, injury to surrounding organs such as the bladder or small bowel, need for colostomy, need for colectomy. Patient understands the risks and is willing to proceed with surgery. Juan M Cummins MD Pager: [facility] [address] [place] [address], [address] [place] [address] Office: 01/24/252030 <Electronically signed by Juan M Cummins MD> Cosigner Signature (if applicable): CC: Dr. Juan M Cummins MD; No Primary Care Physician~ Signed [facility] Work Phone: History of Present illness Narrative* 26-year-old gentleman who was recently evaluated in the emergency department for chest discomfort; in the setting of receiving his COVID booster vaccine * Chest pressure * -started 90 minutes after receiving his COVID booster vaccine. Lasted 24-48 hours. Described as sharp and severe; unremitting chest discomfort with no relief with position/palpation/respiration * -Pain has since resolved. With activities of daily living he denies any chest discomfort or shortness of breath. Denies any orthopnea/PND/lower extremity edema. Denies any dizziness/lightheadedness. * EKG notes normal sinus rhythm with early repolarization changes. Echocardiogram performed 07/22/2021notes no evidence of myopericarditis troponin was negative on that ER visit on July 22. [id number] Work Phone: History of Present illness NarrativePatient presents to the office today to Establish with Scrotal Wall Abscess x 2 week, pain ,left side, radiating left scrotum, no f/c, no n/v, no constipation, 10/22, burning in nature .....patient states he took out the packing after two days...Patient states there is still a lump there... LUTs arechronic and mild. Denies frequency and urgency. Denies dysuria and hematuria.. Nocturia x1.. Caffeine does worsen LUTs.. No medications for LUTs..hx of left orchiectomy 4 years ago due to infection..yellow discharge from it initially, now improved. still taking antibiotic (unsure of name). non tender. denies any fever or chills, n/v. stomach upset from antibiotic.[id number] Work Phone: History of Present illness NarrativePt was seen monday for Scrotal Wall Abscess x 2 week, pain ,left side, radiating left scrotum, no f/c, no n/v, no constipation..Pt did have a recent U/S done which did show 2.4cm left scrotal wall complex lesion with hyperemia suspicious for abscess..patient states he took out the packing after twodays...Patient states there is still a lump there... LUTs are chronic and mild. Denies frequency and urgency. Denies dysuria and hematuria.. Nocturia x1.. Caffeine does worsen LUTs.. 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 yellow discharge from it initially, now improved.[facility] Work Phone: Hospital Discharge instructions Additional Instructions Your exam is normal. Plenty of fluids and rest. Return if worse. Follow-up if not improving.[facility] Work Phone: Reason for referral (narrative)No reason for referral information availableWMiami [facility] Work Phone: Summary Purpose Family History Unknown Family Member Name Dates Details Primary [...] Date/T danna Unknown Family History?- Unknown May 6:53am Family History?Hypertension Unknown June 01, 2019 6:53am Advance Directives Advance Directive Response Recorded Date/ Time Living Will No May 17 3 1:22am Power of Health Center Assistant No May 17 023 1:22am Advance Directive Response Recorded Date/ Time Do you have a Healthcare Power of Health Center Assistant? No January 24, 2025 5:17pm Chief Complaint and Reason for Visit Chief Complaint dizziness Chief Complaint Admit Date foreign body January 24, 2025 4:14pm foreign body January 24, 2025 8:27pm Reason for Visit Admit Date Foreign body anus/rectum January 24, 2025 4:14pm Chief Complaint Establishing with Scrotal Wall AbscessSCROTAL U/Ssurgery f/u1 MO F/U Additional Source Comments (unrecognized sect ion and content) No Status Records FoundNo Status Records FoundNo Status Records FoundNo Status Records FoundNo Status Records Found INFORMATION SOURCE (unrecogn ized section and content) DATE CREATED AUTHOR 05/22/2018 [facility] DATE CREATED AUTHOR AUTHOR'S ORGANIZ ATION 07/27/2022 [facility] DATE CREATED AUTHOR AUTHOR'S ORGANIZ ATION 08/19/2022 [facility] DATE CREATED AUTHOR AUTHOR'S ORGANIZ ATION 09/01/2022 [facility] DATE CREATED AUTHOR AUTHOR'S ORGANIZ ATION 09/01/2022 [employer] <item> Privacy Markings (unrecogniz ed section and content) Section Author: Palmira Martinez PROHIBITION ON REDISCLOSURE OF CONFIDENTIAL INFORMATION This notice accompanies a disclosure of information concerning a client made to you with the consent of such client. Goals (unrecognized section and content) Goals may be documented in a n alternate sectionGoals may be documented in an alternate section Care Teams (unrecognized sec tion and content) Team Status: Active Member Role/Relationship Status Dates No Primary Care Physician Primary Care Provider Active Team Status: Inactive Member Role/Relationship Status Dates No Primary Care Physician Primary Care Provider Active Start: January 24, 2025 End: January 24, 2025 Dr. Lázaro Abraham DO Emergency Provider Active Start: January 24, 2025 End: January 24, 2025 Team Status: Active Member Role/Relationship Status Dates No Primary Care Physician Primary Care Provider Active Start: January 24, 2025 Dr. Lázaro Abraham DO Emergency Provider Active Start: January 24, 2025 Dr. Juan M Cummins MD Attending Provider Active Start: January 24, 2025 FOR RECORDS PERTAINING TO PATIENTS WHO ARE [...] BE BASED ON THE PRIMARY CLINICAL RECORDS. [employer] [facility]. provides no warranty or guarantee of the accuracy or completeness of information in this document.
--- NOTE | 2025-01-24 23:44 | PCM.POST.ANE ---
Anesthesia: Postop Eval I Current Vital Signs Temperature: 97.1 F Pulse Rate: 127 Blood Pressure: 93/79 Respiratory Rate: 18 Pulse Ox: 96 Assessment Airway patent: Yes Spontaneous unlabored respirations: Yes nausea: No Vomiting: No Anesthesia Complication: No Fluid Hydration Crystalloid volume administer (ml): 2,000 Total IV fluid infused: 2,000 Progress Note Anesthesia document: Postop Eval 1 completed: Yes
--- NOTE | 2025-01-24 23:45 | PCM.POSTANE2 ---
Anesthesia Postop Eval I Sum Postop Eval Completion status Anesthesia document: Postop Eval 1 completed: Yes Anesthesia Postop Eval I Summary Anesthesia Postop Eval I Summary: Anesthesia Postop Eval I: Assessment Summary Airway patent Yes 01/24/25 23:44 Spontaneous unlabored Yes 01/24/25 23:44 respirations Mental status nausea No 01/24/25 23:44 Vomiting No 01/24/25 23:44 Anesthesia Postop Eval I: Fluid Summary Crystalloid volume administer 2,000 01/24/25 23:44 (ml) Colloids volume administered ( ml) Blood Product volume administered (ml) Total IV fluid infused 2,000 01/24/25 23:44 Anesthesia Postop Eval I: Summary Notes Anesthesia Complication No 01/24/25 23:44 Anesthesia Complication Comment: Post-operative progress note Anesthesia: Postop Eval II Evaluation Mental status: Apprehensive Pain Level: 0 nausea: No Vomiting: No
[2025-01-25] VITALS (10 sets, daily range): BP systolic 134–153; BP diastolic 77–92; PULSE 68–104; RESP 16–18; TEMP 36.2–37.4; O2SAT 95–99; BMI 20.8
[2025-01-25] MEDS: 0.9% Normal Saline (1000mL) 1,000 ML 100 ML IV (00:44)
[2025-01-25] MEDS: 0.9% Saline Lock 10 ML Syringe IV ×4 (00:50→23:49)
[2025-01-25 04:05] LABS: Hematocrit 39.3 % (40-54); Hemoglobin 13.5 g/dL (13.0-16.5); Immature Granulocytes Count 0.040 X10^3/uL (0.0-0.0); Mean Corp Hgb Conc 34.4 g/dL (32-36); Mean Corpuscular Volume 83.8 fL (80-94); Mean Platelet Vol. 11.3 fl (6.2-12.0); NRBC Flagged by Analyzer 0 % (0-5); Platelet Count 208 K/mm3 (150-450); RBC Distribution Width CV 12.2 % (11.6-14.6); RBC Distribution Width SD 36.8 fl (35.1-43.9); Red Blood Count 4.69 M/mm3 (4.6-6.2); White Blood Count 12.3 K/mm3 (4.4-11.0)
[2025-01-25 04:26] LABS: Anion Gap 14 (5-15); BUN 9 mg/dL (4-19); BUN/Creat Ratio 11.1 RATIO (10-20); Calcium,Total 8.5 mg/dL (7.6-11.0); Carbon Dioxide 20.9 mmol/L (21.0-32.0); Chloride 104 mmol/L (98-108); Estimated Creatinine Clearance 137.16 ml/min (50-250); Glucose 112 mg/dL (70-99); Potassium 3.9 mmol/L (3.3-5.1)
--- NOTE | 2025-01-25 07:11 | PN.SURG_ITS ---
Subjective Subjective Patient reports his pain is well-controlled on meds. He denies any flatus or nausea or vomiting. Objective Data Objective Data Vital Signs: Vital Signs Temp Pulse Resp BP Pulse Ox O2 Del Method 97.9 F 90 16 142/91 H 98 Room Air 01/25/25 04:32 01/25/25 04:32 01/25/25 04:32 01/25/25 04:32 01/25/25 04:32 01/25/25 04:32 Oxygen Delivery Method Room Air Weight: 162 lb 4.8 oz Body Mass Index (BMI) 20.8 Lab / Micro Data 01/25/25 03:28 01/25/25 03:28 Labs: Laboratory Results - last 24 hr 01/24/25 18:30: WBC 10.4, RBC 5.04, Hgb 14.3, Hct 42.8, MCV 84.9, MCH 28.4, MCHC 33.4, RDW Std Deviation 37.4, RDW Coeff of Kenji 12.1, Plt Count 210, MPV 11.3, Immature Gran % (Auto) 0.300, Neut % (Auto) 80.6 H, Lymph % (Auto) 9.5 L, [place] % (Auto) 8.4, Eos % (Auto) 1.0, Baso % (Auto) 0.2, Absolute Neuts (auto) 8.4 H, Absolute Lymphs (auto) 0.99, Nucleated RBC % 0, Sodium 139, Potassium 3.6, Chloride 103, Carbon Dioxide 26.8, Anion Gap 10, BUN 9, Creatinine 0.81, Estim Creat Clear Calc 138.68, Est GFR (MDRD) Non-Af 122, BUN/Creatinine Ratio 11.7, Glucose 94, Calcium 9.2 01/25/25 03:28: WBC 12.3 H, RBC 4.69, Hgb 13.5, Hct 39.3 L, MCV 83.8, MCH 28.8, MCHC 34.4, RDW Std Deviation 36.8, RDW Coeff of Kenji 12.2, Plt Count 208, MPV 11.3, Immature Gran % (Auto) 0.300, Neut % (Auto) 81.3 H, Lymph % (Auto) 10.8 L, [place] % (Auto) 7.1, Eos % (Auto) 0.2, Baso % (Auto) 0.3, Absolute Neuts (auto) 10.0 H, Absolute Lymphs (auto) 1.33, Nucleated RBC % 0, Sodium 138, Potassium 3.9, Chloride 104, Carbon Dioxide 20.9 L, Anion Gap 14, BUN 9, Creatinine 0.82, Estim Creat Clear Calc 137.16, Est GFR (MDRD) Non-Af 121, BUN/Creatinine Ratio 11.1, Glucose 112 H, Calcium 8.5 Radiography Diagnostic Testing: Radiology Impression Acute Abdomen Series 01/24/25 18:15 IMPRESSION: Radiodense foreign body projected over the medial left lower abdomen, possibly located in the sigmoid colon. Reading Location: [facility] Physical Exam Const oriented x3 and no apparent distress Resp normal respiratory effort Cardio regular rate and regular rhythm GI soft to palpation Palpation: tender Assessment & Plan Assessment/Plan (1) Foreign body anus/rectum: PLAN: Patient reports he is doing well this morning. He says that his abdominal pain is tolerable. He denies nausea or vomiting. He is not having any flatus yet. I will leave him on a clear liquid diet for a few days to make sure that his colon does not have pressure necrosis or perforation. Currently the patient is comfortable. Juan M Cummins MD Pager: [facility] [address] [place] [address], [address] [place] [phone] Office:
[2025-01-25] MEDS: 0.9% Normal Saline (1000mL) 1,000 ML 40 ML IV (12:58)
--- NOTE | 2025-01-25 13:04 | CASEMGMT ---
Dx: Foreign object impactment. LACE: 1 6-Clicks: Not available at this time, pt I at baseline. Medical record reviewed and patient evaluated for identification of discharge planning needs. Based on this review, at this time criteria are not present to indicate a need for discharge planning. Will remain available to assist with discharge planning needs as identified or requested.
[2025-01-26] VITALS: BP 136/91; PULSE 80; RESP 18; TEMP 37.2; O2SAT 97
[2025-01-26 03:55] VITALS: BP 144/85; PULSE 61; RESP 18; TEMP 36.8; O2SAT 99
[2025-01-26] MEDS: 0.9% Normal Saline (1000mL) 1,000 ML 40 ML IV (04:17)
--- NOTE | 2025-01-26 07:43 | PCM.PN.SRG ---
Subjective Subjective Patient reports he is more comfortable but he is not passing much flatus and he has not had a bowel movement yet. He denies nausea or vomiting but he is belching. He says his abdominal pain is well-controlled. Objective Data Objective Data Vital Signs: Vital Signs Temp Pulse Resp BP Pulse Ox O2 Del Method 98.2 F 61 18 144/85 H 99 Room Air 01/26/25 03:55 01/26/25 03:55 01/26/25 03:55 01/26/25 03:55 01/26/25 03:55 01/26/25 03:55 Oxygen Delivery Method Room Air Weight: 162 lb 4.8 oz Body Mass Index (BMI) 20.8 Intake & Output: Intake and Output for Last 24 Hours 01/24/25 01/25/25 01/26/25 23:59 23:59 23:59 Intake Total 2550 / 2800 1342.67 / 1342.67 Output Total 1250 / 1250 Balance 1300 / 1550 1342.67 / 1342.67 Lab / Micro Data 01/25/25 03:28 01/25/25 03:28 Physical Exam Const oriented x3 and no apparent distress Resp normal respiratory effort GI soft to palpation and non-tender Assessment & Plan Assessment/Plan (1) Foreign body anus/rectum: PLAN: Patient had laparotomy to remove foreign body. He is doing well. I encouraged ambulation and getting up out of bed. Continue to await significant bowel function before advancing his diet beyond clears. Recheck labs in the morning. Vitals are all stable. No guarding or rebound. Juan M Cummins MD Pager: [facility] [address] [place] [address], [address] [place] [address] Office:
[2025-01-26 08:30] VITALS: BP 115/68; PULSE 65; RESP 16; TEMP 36.6; O2SAT 97
--- NOTE | 2025-01-26 08:49 | NURSING ---
abd binder placed
[2025-01-26 14:25] VITALS: BP 137/91; PULSE 59; RESP 15; TEMP 36.4; O2SAT 100
[2025-01-26 20:30] VITALS: BP 123/82; PULSE 67; RESP 16; TEMP 36.7; O2SAT 99
[2025-01-27 03:13] VITALS: BP 127/81; PULSE 63; RESP 16; TEMP 37.1; O2SAT 98
[2025-01-27] MEDS: 0.9% Normal Saline (1000mL) 1,000 ML 40 ML IV (04:42)
[2025-01-27 06:06] LABS: Hematocrit 37.4 % (40-54); Hemoglobin 12.9 g/dL (13.0-16.5); Immature Granulocytes Count 0.010 X10^3/uL (0.0-0.0); Mean Corp Hgb Conc 34.5 g/dL (32-36); Mean Corpuscular Volume 83.9 fL (80-94); Mean Platelet Vol. 10.8 fl (6.2-12.0); NRBC Flagged by Analyzer 0 % (0-5); Platelet Count 206 K/mm3 (150-450); RBC Distribution Width CV 12.0 % (11.6-14.6); RBC Distribution Width SD 36.6 fl (35.1-43.9); Red Blood Count 4.46 M/mm3 (4.6-6.2); White Blood Count 5.4 K/mm3 (4.4-11.0)
[2025-01-27 06:25] LABS: Anion Gap 11 (5-15); BUN 9 mg/dL (4-19); BUN/Creat Ratio 15.5 RATIO (10-20); Calcium,Total 9.2 mg/dL (7.6-11.0); Carbon Dioxide 26.6 mmol/L (21.0-32.0); Chloride 103 mmol/L (98-108); Estimated Creatinine Clearance 193.92 ml/min (50-250); Glucose 99 mg/dL (70-99); Potassium 3.7 mmol/L (3.3-5.1)
[2025-01-27 08:40] VITALS: BP 118/76; PULSE 64; RESP 16; TEMP 36.9; O2SAT 98
--- NOTE | 2025-01-27 11:06 | CASEMGMT ---
RN CM into pt room, pt sitting up in bed in no distress. Pt denies having a PCP. Provided pt with a local healthcare directory pamphlet. Pt denies need for assistance with setting up PCP.
--- NOTE | 2025-01-27 12:35 | PCM.PN.SRG ---
Subjective Subjective Patient is doing well on a regular diet today. His abdominal pain is well-controlled. He is passing flatus. Objective Data Objective Data Vital Signs: Vital Signs Temp Pulse Resp BP Pulse Ox O2 Del Method 98.5 F 64 16 118/76 98 Room Air 01/27/25 08:40 01/27/25 08:40 01/27/25 08:40 01/27/25 08:40 01/27/25 08:40 01/27/25 08:41 Oxygen Delivery Method Room Air Weight: 162 lb 4.8 oz Body Mass Index (BMI) 20.8 Intake & Output: Intake and Output for Last 24 Hours 01/25/25 01/26/25 01/27/25 23:59 23:59 23:59 Intake Total 2550 / 2800 2082.67 / 2082.67 1276.67 / 1276.67 Output Total 1250 / 1250 Balance 1300 / 1550 2082.67 / 2082.67 1276.67 / 1276.67 Lab / Micro Data 01/27/25 05:20 01/27/25 05:20 Labs: Laboratory Results - last 24 hr 01/27/25 05:20: WBC 5.4, RBC 4.46 L, Hgb 12.9 L, Hct 37.4 L, MCV 83.9, MCH 28.9, MCHC 34.5, RDW Std Deviation 36.6, RDW Coeff of Kenji 12.0, Plt Count 206, MPV 10.8, Immature Gran % (Auto) 0.200, Neut % (Auto) 62.5, Lymph % (Auto) 23.4, [place] % (Auto) 7.4, Eos % (Auto) 6.1 H, Baso % (Auto) 0.4, Absolute Neuts (auto) 3.4, Absolute Lymphs (auto) 1.27, Nucleated RBC % 0, Sodium 140, Potassium 3.7, Chloride 103, Carbon Dioxide 26.6, Anion Gap 11, BUN 9, Creatinine 0.58 L, Estim Creat Clear Calc 193.92, Est GFR (MDRD) Non-Af 134, BUN/Creatinine Ratio 15.5, Glucose 99, Calcium 9.2 Physical Exam Const oriented x3 and no apparent distress Resp normal respiratory effort GI soft to palpation and non-tender Assessment & Plan Assessment/Plan (1) Foreign body anus/rectum: PLAN: The patient is doing well after laparotomy. His incision is clean dry and intact and his dressings were removed today. I advised him that he is okay to shower but he should just pat it dry. He is tolerating a regular diet and would like to go home. I advised him to take some MiraLAX along with the pain medications. He will return if he develops any abdominal pain. I asked him to follow-up in 1 week for staple removal. Juan M Cummins MD Pager: [facility] [address] [place] [address] [address] [place] [address] Office:
--- NOTE | 2025-01-27 12:36 | DS.PCM_ITS ---
Providers Date of Admission: 01/25/25 Primary Care Physician: No Primary Care Phys Reason For Visit: FOREIGN BODY IMPACTION Diagnosis Discharge Diagnosis (1) Foreign body anus/rectum: Status: Acute Code(s): T18.5XXA - Foreign body in anus and rectum, initial encounter Plan: The patient is doing well after laparotomy. His incision is clean dry and intact and his dressings were removed today. I advised him that he is okay to shower but he should just pat it dry. He is tolerating a regular diet and would like to go home. I advised him to take some MiraLAX along with the pain medications. He will return if he develops any abdominal pain. I asked him to follow-up in 1 week for staple removal. Juan M Cummins MD Pager: [facility] [address] [place] [address], [address] [place] [address] Office: Medications at Discharge Home Medications oxycodone 5 mg tablet 5 - 10 mg (1 - 2 x 5 mg) PO Q4H PRN PRN Pain Score 4-10 5 days #20 tabs 01/27/25 Hospital Course Operations - (Laparotomy) Procedures None Summary of Care Provided Hospital Course: The patient presented with a foreign body in the sigmoid colon. He was taken for surgery and had a laparotomy with removal of the device. There was no enterotomy needed. The patient was then started on a clear liquid diet and slowly advance to regular diet and once tolerating he was discharged home. Weight / BMI Weight Weight: 162 lb 4.8 oz Body Mass Index (BMI) 20.8 ABG / Lab / Microbiology Data 01/27/25 05:20 01/27/25 05:20 Laboratory: Laboratory Results - last 24 hr 01/27/25 05:20: WBC 5.4, RBC 4.46 L, Hgb 12.9 L, Hct 37.4 L, MCV 83.9, MCH 28.9, MCHC 34.5, RDW Std Deviation 36.6, RDW Coeff of Kenji 12.0, Plt Count 206, MPV 10.8, Immature Gran % (Auto) 0.200, Neut % (Auto) 62.5, Lymph % (Auto) 23.4, [place] % (Auto) 7.4, Eos % (Auto) 6.1 H, Baso % (Auto) 0.4, Absolute Neuts (auto) 3.4, Absolute Lymphs (auto) 1.27, Nucleated RBC % 0, Sodium 140, Potassium 3.7, Chloride 103, Carbon Dioxide 26.6, Anion Gap 11, BUN 9, Creatinine 0.58 L, Estim Creat Clear Calc 193.92, Est GFR (MDRD) Non-Af 134, BUN/Creatinine Ratio 15.5, Glucose 99, Calcium 9.2 D/C Instructions Discharge Activity: May Not Drive (for 3 days and until off narcotics) and May Shower Lifting Restrictions: 15 lbs for 6 weeks Additional Activity Instructions: Alternate ibuprofen and Tylenol for pain control, oxycodone for breakthrough pain Call your doctor if your incision/area has: Continuous Slow Oozing, Sudden Increased Bleeding, Increased Pain/ Swelling, Increased Redness, Foul Smelling Discharge and Swelling at the incision site Call your doctor if you observe: Fever of 101 or Higher Cleanse incision/area with: Soap & Water DC O2, CPAP, BIPAP Needs Home O2 Discharge instructions: No Please Follow Up With: Juan M Cummins MD When: Please call to schedule 1 week follow up appointment. [phone] Meaningful Use Info Meaningful Use Meaningful Use Diagnoses (Choose all that apply): None applicable Discharge Plan Admission Admit Date/Time: 01/25/25 12:23 Attending Provider: Juan M Cummins Primary Care Provider: Care Physician,Elizabeth Primary Discharge Orders/Prescriptions Prescriptions: New oxycodone 5 mg Tablet 5 - 10 mg PO Q4H PRN PRN (Reason: Pain Score 4-10) 5 Days Qty: 20 0RF Referrals / Follow Up: Care Physician,No Primary [Primary Care Provider] - Disposition Disposition (needs filled in before D/C Order can be placed): Home, Self Care
[2025-01-27 14:22] VITALS: BP 125/81; PULSE 76; RESP 16; TEMP 36.8; O2SAT 99
== END 2025-01-27 14:39 | disposition home or self-care (01) | DRG 223 ==
LOC: ED 17:51 → SDC 21:39 → AC 21:39 → MS3 23:04 → SDC 23:40 → MS3 23:40
PROVIDERS: Admitting Provider Surgery; Emergency Provider Emergency Medicine; Referring Provider Surgery; Visit Provider Surgery
PROC: 0DCN0ZZ Extirpation of Matter from Sigmoid Colon, Open Approach (ICD-10-PCS; CPT 49000; principal; 2025-01-24 23:00)
DX: T18.4XXA Foreign body in colon, initial encounter (principal); Z53.39 Other specified procedure converted to open procedure; Z79.891 Long term (current) use of opiate analgesic; W44.8XXA Other foreign body entering into or through a natural orifice, initial encounter; Z79.899 Other long term (current) drug therapy
CPT/HCPCS: 36415; 74022; 80048; 85025; 88300; 99284; A4216; J2405